=== PATIENT | male | born 1955 | race African-American/Black ===

== ENCOUNTER 2018-02-28 12:07 | Emergency (ER) | payer MEDICAID, SELFPAY ==
[2018-02-28] MEDS ORDERED: ISOVUE-370 76%-LOCM 1 ML ONE (12:16)
[2018-02-28] MEDS ORDERED: EPINEPHrine 1 MG/ML AMP ONE (12:16)
[2018-02-28] MEDS ORDERED: Norepinephrine 8 MG/0.9% NS 250 ML ONE (12:22)
[2018-02-28 12:44] LABS: Base Excess-Venous -2.9 mmol/L (0 (+/- 2.5)); Bicarbonate (HCO3v) 23.8 mmol/L (1.0-85.0); CO2 Tension (PvCO2) 47.9 mmHg (41.0-51.0); Calcium, Ionized 1.64 mmol/L (1.12-1.32); Hemoglobin - Calc 12.5 g/dL (12.0-18.0); O2 Tension (PvO2) 48.7 mmHg (35.0-45.0); Potassium 4.2 mmol/L (3.4-4.7); T. Carbon Dioxide 25.3 mmol/L (1.0-85.0); pH (Venous) 7.304 (7.35-7.45); vO2 Saturation-calc 79.7 % (94-98)
[2018-02-28 12:56] LABS: #Basophils 0.1 thou/uL (0.0-0.2); #Eosinphils 0.1 thou/uL (0.0-0.7); #Lymphocytes 1.2 thou/uL (1.20-3.40); #Monocytes 0.5 thou/uL (0.11-0.59); #Neutrophils 12.9 thou/uL (1.40-6.50); %Basophils 0.3 % (0.0-1.0); %Eosinophils 0.5 % (0.0-10.0); %Monocytes 3.4 % (0.0-10.0); %Neutrophils 87.8 % (42.0-75.0); Hemoglobin 12.7 g/dL (14.0-18.0); Mean Corpuscular Hemoglobin 32.9 pg (27.0-31.0); Mean Corpuscular Volume 99.6 fL (78.0-98.0); Mean Platelet Volume 8.8 fL (7.4-10.4); Platelet Count 282 thou/uL (130-400); RBC Distribution Width 12.1 % (11.5-14.5); Red Blood Cell (RBC) Count 3.87 mill/uL (4.70-6.10); White Blood Cell (WBC) Count 14.6 thou/uL (4.8-10.8)
[2018-02-28 13:01] LABS: Acetaminophen Less than 6.0 mcg/mL (10.0-30.0); Alcohol Less than 10 mg/dL (Less than 10); Salicylate Less than 8.0 mg/dL (15.0-30.0)
[2018-02-28 13:06] LABS: CKMB 1.5 ng/mL (0-6.6); Troponin I 0.011 ng/mL (< 0.028)
--- NOTE | 2018-02-28 13:06 | CT ---
HEAD CT WITHOUT CONTRAST: DATE: 02/28/18. COMPARISON: None. HISTORY: Found unresponsive, diaphoresis, lightheaded. TECHNIQUE: Serial axial CT imaging at 5 mm intervals from the vertex through the skull base without contrast. FINDINGS: There is partial opacification of the anterior ethmoid air cells on the left. No displaced calvarial fracture is noted. There is atherosclerotic calcification of the cavernous carotid arteries. No in tracranial hemorrhage, midline shift, mass effect, or ventricular enlargement. IMPRESSION: No acute findings. POS: [facility]
[2018-02-28 13:13] LABS: ALT (SGPT) 18 U/L (8-55); AST (SGOT) 27 U/L (5-34); Albumin 3.4 g/dL (3.4-4.8); Alkaline Phosphatase 75 U/L (40-150); Anion Gap 16 mmol/L (10-20); BUN (Urea Nitrogen) 30 mg/dL (8.4-25.7); Bilirubin, Total 0.9 mg/dL (0.2-1.2); CK (CPK) 232 U/L (30-200); Calc. Creatinine Clearance 0 mL/min (70-130); Calcium 9.2 mg/dL (7.8-10.44); Carbon Dioxide 21 mmol/L (23-31); Chloride 105 mmol/L (98-107); Estimated GFR-MDRD 35; Globulin 4.1 g/dL (2.4-3.5); Glucose 112 mg/dL (80-115); Lipase 53 U/L (8-78); Potassium 4.7 mmol/L (3.5-5.1); Protein, Total 7.5 g/dL (5.8-8.1); Sodium 137 mmol/L (136-145)
--- NOTE | 2018-02-28 13:38 | CT ---
CT CHEST WITH IV CONTRAST AND 3D POSTPROCESSING CT ABDOMEN WITH IV CONTRAST AND 3D POSTPROCESSING: Date: 02/28/18 HISTORY: Patient was found unresponsive. Exam requested to evaluate for aneurysm or dissection of the aorta. D iabetes, hypertension, and hypercholesterolemia. FINDINGS: There are vascular calcifications and good opacification of the aortic lumen without evidence of aneu rysmal dilatation or intimal flap to suggest dissection. No pleural or pericardial effusions are seen . There are dependent changes in the lung bases. No pneumothoraces or lobar consolidation seen. There is 3.5 x 3.0 x 4.0 cm low density lesion in the lateral aspect of the right lobe of the liver. A tiny low density lesion is seen in the left lobe of the liver. No calcified gallstones are seen. Th e spleen, pancreas, adrenal glands, and kidneys are normal. No free air or free fluid seen in the abd omen. Normal appearing appendix is present. There are degenerative changes in the spine. There is goo d flow in the celiac axis, SMA, COLTON, and renal arteries. There is mild stenosis in the proximal renal arteries. IMPRESSION: 1. No evidence of aortic aneurysm or dissection. 2. Probable liver mass. Further evaluation with ultrasound would be helpful. POS: [facility]
[2018-02-28 14:04] LABS: Amphetamine Not Detected (NotDetected); Barbiturates Screen Not Detected (NotDetected); Benzodiazepine Screen Not Detected (NotDetected); Cocaine Metabolite Screen Detected (NotDetected); Medtox Control Line Valid? VALID (VALID); Medtox Reader # READER 4; Methadone Not Detected (NotDetected); Methamphetamine Not Detected (NotDetected); Opiate Screen Not Detected (NotDetected); Oxycodone Screen Not Detected (NotDetected); Phencyclidine (PCP) Not Detected (NotDetected); THC/Cannabinoid Screen Not Detected (NotDetected); Tricyclic Screen Not Detected (NotDetected)
[2018-02-28] MEDS ORDERED: Dexamethasone 10 MG/ML VIAL ONE (14:28)
[2018-02-28] MEDS ORDERED: EPINEPHrine 1 MG/10 ML Abboject SYRINGE ONE (18:00)
[2018-02-28] MEDS ORDERED: Calcium Chloride 1 GM/10 ML Abboject SYRINGE ONE (18:00)
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
== END 2018-02-28 16:01 | disposition left against medical advice (07) ==
LOC: ERS 12:07
DX: I95.9 Hypotension, unspecified (principal); E11.9 Type 2 diabetes mellitus without complications; E78.00 Pure hypercholesterolemia, unspecified
CPT/HCPCS: 36416; 36556; 51702; 70450; 71275; 80053; 80306; 80307; 82330; 82533; 82550; 82553; 82803; 83605; 83690; 84484; 85025; 93005; 96365; 96366; 96375; J0171; J1100

== ENCOUNTER 2018-04-30 10:16 | Inpatient (IN) | payer OTHER ==
[2018-04-30 11:07] LABS: #Basophils 0.1 thou/uL (0.0-0.2); #Eosinphils 0.2 thou/uL (0.0-0.7); #Monocytes 0.6 thou/uL (0.11-0.59); #Neutrophils 6.9 thou/uL (1.40-6.50); %Eosinophils 2.1 % (0.0-10.0); %Lymphocytes 20.6 % (21.0-51.0); %Monocytes 6.4 % (0.0-10.0); %Neutrophils 69.8 % (42.0-75.0); Hemoglobin 6.1 g/dL (14.0-18.0); Mean Corpuscular HGB CONC 33.7 g/dL (32.0-36.0); Mean Corpuscular Hemoglobin 34.4 pg (27.0-31.0); Mean Platelet Volume 7.6 fL (7.4-10.4); Platelet Count 313 thou/uL (130-400); Red Blood Cell (RBC) Count 1.76 mill/uL (4.70-6.10); White Blood Cell (WBC) Count 9.8 thou/uL (4.8-10.8)
[2018-04-30 11:14] LABS: INR-International Normal Ratio 1.2; Prothrombin Time 15.7 SEC (12.0-14.7)
[2018-04-30 11:24] LABS: PTT 21.9 SEC (22.9-36.1)
--- NOTE | 2018-04-30 11:28 | RAD ---
CHEST 1 VIEW: Date: 04/30/18 HISTORY: Chest pain. Shortness of breath. COMPARISON: 04/24/18. FINDINGS: Atherosclerosis of aorta. Normal cardiac silhouette. Pulmonary vessels and hilum are normal. Costophr enic angles are clear. No mass. No consolidation. No pneumothorax or osseous abnormalities. IMPRESSION: Atherosclerosis. No acute cardiopulmonary process. POS: [facility]
[2018-04-30 11:29] LABS: ALT (SGPT) 12 U/L (8-55); AST (SGOT) 24 U/L (5-34); Albumin 3.2 g/dL (3.4-4.8); Alkaline Phosphatase 60 U/L (40-150); Anion Gap 13 mmol/L (10-20); BUN (Urea Nitrogen) 25 mg/dL (8.4-25.7); Bilirubin, Total 0.2 mg/dL (0.2-1.2); CK (CPK) 79 U/L (30-200); Calc. Creatinine Clearance 0 mL/min (70-130); Carbon Dioxide 23 mmol/L (23-31); Chloride 104 mmol/L (98-107); Estimated GFR-MDRD 58; Globulin 3.3 g/dL (2.4-3.5); Glucose 382 mg/dL (80-115); Potassium 4.7 mmol/L (3.5-5.1); Protein, Total 6.5 g/dL (5.8-8.1); Sodium 135 mmol/L (136-145)
[2018-04-30 11:33] LABS: CKMB 1.8 ng/mL (0-6.6); Troponin I Less than 0.010 ng/mL (< 0.028)
[2018-04-30] MEDS ORDERED: Pantoprazole 40 MG VIAL IVP SCH ×3 (12:15→21:45)
[2018-04-30] MEDS ORDERED: Pantoprazole 40 MG VIAL ONE (12:50)
[2018-04-30] MEDS ORDERED: Acetaminophen 325 MG TAB PO PRN (14:46)
[2018-04-30 14:47] VITALS: BMI 30.8
[2018-04-30] MEDS ORDERED: Dextrose 5% in Water 1,000 ML IV PRN (14:47)
[2018-04-30] MEDS ORDERED: Dextrose 50% Abboject 50 ML SYRINGE SLOW IVP PRN (14:47)
--- NOTE | 2018-04-30 16:56 | ULT ---
BILATERAL LOWER EXTREMITY VENOUS DOPPLER ULTRASOUND: 04/30/18 HISTORY: Bilateral lower extremity pain and edema. TECHNIQUE: Joy scale, with color flow and spectral doppler imaging of the deep venous system of the lower extre mity is performed bilaterally. FINDINGS: There is good flow, compression, and augmentation noted in the common femoral, femoral, deep femoral, popliteal, posterior tibial and greater saphenous veins. IMPRESSION: No evidence of DVT in either lower extremity. POS: [facility]
[2018-04-30 17:04] LABS: Hemoglobin 7.6 g/dL (14.0-18.0)
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
[2018-04-30 21:15] LABS: Hemoglobin 7.4 g/dL (14.0-18.0)
[2018-04-30] MEDS: Sodium Chloride 0.9% 1,000 ML IV SCH (21:55)
[2018-05-01] MEDS ORDERED: Gabapentin 300 MG CAP PO SCH (00:15)
[2018-05-01 05:55] LABS: Hemoglobin 6.7 g/dL (14.0-18.0)
[2018-05-01 06:13] LABS: Anion Gap 10 mmol/L (10-20); BUN (Urea Nitrogen) 24 mg/dL (8.4-25.7); Calc. Creatinine Clearance 89 mL/min (70-130); Calcium 8.6 mg/dL (7.8-10.44); Carbon Dioxide 24 mmol/L (23-31); Chloride 107 mmol/L (98-107); Estimated GFR-MDRD 73; Glucose 289 mg/dL (80-115); Potassium 4.4 mmol/L (3.5-5.1); Sodium 137 mmol/L (136-145)
[2018-05-01] MEDS: Gabapentin 300 MG CAP PO SCH ×3 (08:45→20:42)
[2018-05-01] MEDS: Pantoprazole 40 MG VIAL IVP SCH ×2 (08:46→20:42)
[2018-05-01 09:02] LABS: Hemoglobin 6.9 g/dL (14.0-18.0)
[2018-05-01] MEDS: Insulin Glargine 5 UNITS in Pre-Filled Syringe 1 EACH SC SCH (10:31)
--- NOTE | 2018-05-01 13:03 | PDOC.PN ---
- Subjective Encounter Start Date: 05/01/18 Encounter Start Time: 10:30 Subjective: pt up in bed no complains - Objective Resuscitation Status: Resuscitation Status FULL:Full Resuscitation Vital Signs & Weight: Vital Signs (12 hours) Temp Pulse Pulse Resp BP BP Pulse Ox 05/01/18 11:16 98.8 F 86 16 122/60 96 05/01/18 10:47 99.3 F 88 16 120/59 L 96 05/01/18 07:44 99 F 92 16 126/65 96 05/01/18 04:00 98.2 F 106 H 20 141/67 H 96 Weight Admit Weight 221 lb Weight 221 lb I&O: 04/30/18 05/01/18 05/02/18 06:59 06:59 06:59 Intake Total 0 Output Total 375 Balance -375 0 Result Diagrams: 05/01/18 08:37 05/01/18 05:37 Additional Labs: Accuchecks 05/01/18 05/01/18 04/30/18 10:57 05:44 20:28 POC Glucose 269 H 287 H 256 H Phys Exam - Physical Examination Neck: no nodes, no JVD, supple, full ROM Respiratory: no wheezing, no rales, no rhonchi, wheezing present, clear to auscultation bilateral Cardiovascular: RRR, no significant murmur, no rub, gallop, irregular Gastrointestinal: soft, non-tender, no distention, positive bowel sounds Dx/Plan (1) Acute blood loss anemia Code(s): D62 - ACUTE POSTHEMORRHAGIC ANEMIA Status: Acute Comment: H/H stable and better.S/P EGD w APC of bleeding lesions. monitor. (2) Pulmonary embolus Code(s): I26.99 - OTHER PULMONARY EMBOLISM WITHOUT ACUTE COR PULMONALE Status : Acute (3) GI bleed Code(s): K92.2 - GASTROINTESTINAL HEMORRHAGE, UNSPECIFIED Status: Suspected Comment: S/P EGD with cauterization - Plan pt's hh is low will give him one more unit of blood -: He is npo for possible EGD, gi to see pt -: pt high risk due to acute PE and acute gi bleed * . Review of Systems - Review of Systems Respiratory: negative: Cough, Dry, Shortness of Breath, Hemoptysis, SOB with Excertion, Pleuritic Pain, Sputum, Wheezing Cardiovascular: negative: chest pain, palpitations, orthopnea, paroxysmal nocturnal dyspnea, edema, light headedness, other Gastrointestinal: negative: Nausea, Vomiting, Abdominal Pain, Diarrhea, Constipation, Melena, Hematochezia, Other Genitourinary: negative: Dysuria, Frequency, Incontinence, Hematuria, Retention , Other - Medications/Allergies Allergies/Adverse Reactions: Allergies Allergy/AdvReac Type Severity Reaction Status Date / Time No Known Allergies Allergy Verified 04/30/18 14:47 Medications: Current Medications Acetaminophen (Tylenol) 650 mg PO Q4H PRN PRN Reason: Headache/Fever or Pain Dextrose/Water (Dextrose 50%) 25 gm SLOW IVP PRN PRN PRN Reason: Hypoglycemia Gabapentin (Neurontin) 300 mg PO TID [facility] Last Admin: 05/01/18 08:45 Dose: Not Given Glucagon (Glucagon) 1 mg IM PRN PRN PRN Reason: Hypoglycemia Dextrose/Water (D5w) 1,000 mls @ 0 mls/hr IV .Q0M PRN PRN Reason: Hypoglycemia Sodium Chloride (Normal Saline 0.9%) 1,000 mls @ 50 mls/hr IV .Q20H [facility] Last Admin: 04/30/18 21:55 Dose: 1,000 mls Insulin Glargine 5 units/ (Miscellaneous Medication) 0.05 mls @ 0 mls/hr SC QAM [facility] Last Admin: 05/01/18 10:31 Dose: 0.05 mls Insulin Human Lispro (Humalog) 0 units SC .MILD SLIDING SCALE PRN PRN Reason: Mild Correctional Scale Pantoprazole Sodium (Protonix) 40 mg IVP Q12HR [facility] Last Admin: 05/01/18 08:46 Dose: 40 mg Sodium Chloride (Flush - Normal Saline) 10 ml IVF Q12HR [facility] Last Admin: 05/01/18 08:46 Dose: 10 ml Sodium Chloride (Flush - Normal Saline) 10 ml IVF PRN PRN PRN Reason: Saline Flush
[2018-05-01 15:20] LABS: Hemoglobin 8.2 g/dL (14.0-18.0)
[2018-05-01] MEDS: Sodium Chloride 0.9% 1,000 ML IV SCH (16:50)
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
--- NOTE | 2018-05-01 17:46 | PRG ---
DATE OF SERVICE: 05/01/2018 REASON FOR CONSULTATION: Anemia, melena. SUBJECTIVE: The patient states that he does still have some mild shortness of breath at rest while l bernice in bed today, but denies any further episodes of melenic type stools during this admission. Cur rently, denies any nausea, vomiting, fevers, chills, hematemesis, hematochezia, or abdominal pain. OBJECTIVE: VITAL SIGNS: Temperature 98.8, pulse 86, blood pressure 130/64, respiratory rate 16, satting 98% on room air. GENERAL: The patient is lying in bed, in no acute distress. Alert and oriented x4. CARDIOVASCULAR: Regular rate and rhythm. PULMONARY: Clear to auscultation bilaterally. ABDOMEN: Normoactive bowel sounds, soft, nontender, nondistended. EXTREMITIES: No cyanosis, clubbing or edema. LABORATORY DATA: CBC with a hemoglobin of 6.7, hematocrit 19.9. Chemistry with a sodium of 137, pot assium 4.4, chloride 107, CO2 24, BUN 24, creatinine 1.21, glucose 289. IMAGING DATA: EGD performed on 04/25/2018 showed a 3-4 mm clean based linear ulceration seen in the proximal fundus without any high risk stigmata or active/recent bleeding. This was not intervened up on given the low likelihood of repeat bleeding. However, there were three additional areas of active oozing of blood from the gastric mucosa in the distal body, antrum and along the incisura. These 3 areas were intervened upon with argon plasma coagulation with good hemostasis achieved and no bleedin g noted at the completion of the procedure. ASSESSMENT AND PLAN: The patient is a 62-year-old male with past medical history of hypertension, diabetes, peripheral neuropathy, hypothyroidism, hyperlipidemia, and hepatic lesion pr esenting with anemia with a recent discharge for upper GI bleeding. Upper GI bleeding. The patient initially presented during the last hospitalization with progressive worsening of dizziness, weakness and dyspnea on exertion along with a decreased H&H and melenic type stools that were noted on admission. He subsequently underwent EGD on 04/25/2018, which showed a 3-4 mm linear ulceration within the proximal fundus without any high risk stigmata of bleeding, but did have 3 other areas of active oozing of blood from seemingly normal appearing mucosa. These three are as of active bleeding were intervened upon with argon plasma coagulation with good hemostasis achieve d. In the post-procedure period, he had stabilization of his H&H and did not have any further episod es of melena or melenic type stools. He was ultimately discharged to home with instructions to resta rt his Xarelto approximately 48 hours after discharge; however, while at home, he began to exhibit da rker color, almost black colored stools. There were semi-solid in consistency and ultimately the pat iefelicitas experienced increased dyspnea on exertion as well as chest pain that prompted his readmission in to the hospital. Upon readmission to the ER, his routine labs noted a significant drop from his H&H from discharge concerning for an active GI bleeding process. At this time given his decreased H&H an d melenic type stools as an outpatient, it is strongly concerning for continued GI bleeding despite n ot restarting Xarelto as an outpatient. RECOMMENDATIONS: 1. We would continue to trend H&H and transfuse as necessary to maintain an H&H of 7/21. 2. We would continue monitor clinically for signs of active gastrointestinal bleeding. 3. We would continue to hold anticoagulation in light of recent and probable active gastrointestinal bleeding. 4. The patient could be placed on a clear liquid diet tonight with plans for n.p.o. at midnight and repeat EGD tomorrow morning. 5. Further recommendations to follow endoscopic management. Hepatic lesion: Upon review of the patient's chart, there was some mention of a history of chronic h epatitis C as well as a CT dissection protocol that was performed in 02/2018. During that particular CT scan, there was noted a 3.5 x 3 x 4 cm low density lesion in the lateral aspect of the right lobe of the liver. A tiny low density lesion was also seen within the left lobe of the liver; however, prem haley did not comment on any cirrhotic morphology at that time and his current platelet count as well a s prior EGD not showing esophageal varices does not concur with the diagnosis of cirrhosis at this ti me either. However, given the size of this particular lesion, it is concerning for a possible malign ant process and will need further workup. RECOMMENDATIONS: We would perform a CT 3 phase examination for further characterization of these hep atic lesions and possibility of HCC. We will continue to follow. Please call with any questions.
[2018-05-01] MEDS: HumaLOG 300 UNITS/3 ML VIAL SC PRN (18:25)
[2018-05-01 20:45] LABS: Hemoglobin 8.1 g/dL (14.0-18.0)
--- NOTE | 2018-05-02 00:18 | CON ---
DATE OF CONSULTATION: 05/01/2018 REASON FOR CONSULTATION: Opinion regarding anticoagulation in a patient with a remote history of pul monary embolism and recurrent gastrointestinal bleed. HISTORY OF PRESENT ILLNESS: This is a 62-year-old male who presented to the hospital yesterday with shortness of breath. He was diagnosed with pulmonary embolism back in early 03/2018 and was discharg ed on the Xarelto. He came back into the hospital on 04/24/2018 and was found to have a Dieulafoy's lesion in his stomach with profound anemia. It was cauterized. He was discharged to home on the and was supposed to restart his Xarelto yesterday. However, he came back to the hospital last night with chest tightness and was found to be anemic with a hemoglobin of 6.1. He currently is not exper iencing shortness of breath. His anticoagulation is being held. PAST MEDICAL HISTORY: 1. Diabetes mellitus type 2, now insulin requiring. 2. Hypertension. 3. Hypothyroidism. 4. Chronic hepatitis C. 5. Recent pulmonary embolism. 6. Colon cancer. PAST SURGICAL HISTORY: Exploratory laparotomy. ALLERGIES: None. REVIEW OF SYSTEMS: Twelve-point review of systems negative. MEDICATIONS PRIOR TO ADMISSION: Lipitor, gabapentin, Synthroid, Xarelto, lisinopril. SOCIAL HISTORY: Smokes 1 pack per day, occasionally drinks alcohol, does not use any illicit drugs. PHYSICAL EXAMINATION: VITAL SIGNS: Temperature 99.2, pulse 95, respirations 18, O2 saturation 98%, blood pressure 145/68. HEENT: Pupils react. Sclerae icteric. Oropharynx clear. NECK: Without adenopathy or JVD. LUNGS: Clear without wheezing or rhonchi. CARDIAC: S1, S2 regular, without murmur. ABDOMEN: Soft, nontender. EXTREMITIES: No clubbing, cyanosis, or edema. Venogram showed no evidence of clot. I reviewed CT scan from back in March, this demonstrated possible single pulmonary embolism branch o f the right upper lobe pulmonary artery involving anterior and posterior segments. He also had 5-mm right middle lobe nodule. ASSESSMENT: 1. Gastrointestinal bleed. 2. Recent pulmonary embolism. RECOMMENDATIONS: 1. It is not safe to anticoagulate the patient while he is having a problem with gastrointestinal bl eeding. I would withhold the anticoagulation until his GI issues have resolved. I would not put an IVC filter in. 2. He needs to follow up either with myself or primary care provider in about 6 months to reimage th e 5-mm pulmonary nodule found on previous CT imaging. Thank you for the referral.
[2018-05-02] MEDS ORDERED: Lidocaine 1% PF 5 ML VIAL ONE (09:46)
[2018-05-02] MEDS ORDERED: PROPOFOL 200 MG/20 ML VIAL ONE (09:46)
[2018-05-02] MEDS: Insulin Glargine 5 UNITS in Pre-Filled Syringe 1 EACH SC SCH (11:32)
[2018-05-02] MEDS: Pantoprazole 40 MG VIAL IVP SCH ×2 (11:32→21:17)
[2018-05-02] MEDS: Gabapentin 300 MG CAP PO SCH ×3 (11:33→21:18)
[2018-05-02] MEDS: HumaLOG 300 UNITS/3 ML VIAL SC PRN ×3 (11:34→21:18)
--- NOTE | 2018-05-02 12:35 | OP ---
DATE OF PROCEDURE: 05/02/2018 SURGEON: Alex Shannon M.D. ALUMINUM BOAT INSPECTOR SURGEON: None. PROCEDURE: Esophagogastroduodenoscopy, diagnostic. INDICATION: 1. Acute blood loss anemia. 2. Melena. 3. History of gastric ulcers and Dieulafoy lesions, treated endoscopically 1 week ago. MEDICATIONS: See anesthesia record. FINDINGS: After discussion of the risks, benefits and alternatives of the procedure, informed consen t was obtained and witnessed. Pre-endoscopic cardiopulmonary examination was satisfactory. Timeout was performed before sedation was achieved. Sedation was achieved with anesthesia assistance in the endoscopy unit. A Pentax adult upper endoscope was placed into the oropharynx and passed through the cricopharyngeus under direct visualization. The esophageal mucosa appeared normal throughout with a normal-appearing Z-line. There were no esophageal varices. The endoscope was advanced into the sto mach. Forward and retroflexed views of the entire gastric mucosa were obtained. There was no eviden ce of any old blood or active bleeding in the stomach. There were no gastric varices along the great er curvature of the stomach. There is a semi-linear ulceration with a clean base. There were no hig h risk stigmata for bleeding. In the gastric antrum near the pylorus, there is a larger ulcer with a clean base, also nonbleeding. There was no adherent clot or visible vessel. There were no high ris k stigmata for rebleeding. The remainder of the gastric mucosa appeared normal. I advanced the endo scope through the pylorus and into the duodenum. I was able to advance to the 6th portion of the duo denum with the upper endoscope, to 100 cm examined. The entire duodenal mucosa examined appeared nor mal. The upper endoscope was then completely withdrawn and the patient allowed to recover. The dominic ent tolerated the procedure well. There were no immediate post-procedure complications. IMPRESSION: 1. Two clean based gastric ulcers, in the gastric antrum and along the greater curvature. No high r isk stigmata for rebleeding. 2. No old blood or active bleeding on this exam. 3. Otherwise, normal esophagogastroduodenoscopy. 4. The larger antral ulcer represents the site of recent APC treatment of his Dieulafoy lesion. Thi s is the likely site of his more recent bleeding, but with his clean based appearance, no endoscopic therapy was applied. RECOMMENDATIONS: 1. IV proton pump inhibitor every 12 hours while inpatient, switched to Protonix 40 mg p.o. twice da fish on discharge. 2. No nonsteroidal anti-inflammatory drugs or any anticoagulation, if possible. 3. We will advance his diet. 4. Continue to follow H&H tomorrow.
--- NOTE | 2018-05-02 13:56 | PQF ---
CLINICAL DOCUMENTATION IMPROVEMENT CLARIFICATION FORM: ICD-10 Updated PLEASE DO AN ADDENDUM TO THE PROGRESS NOTE WITH ANY DOCUMENTATION UPDATES OR ADDITIONS AND CARRY THROUGH TO DC SUMMARY. THANK YOU. DATE: 05/02/18 ATTN: DR. LOAIZA Please exercise your independent, professional judgment in responding to the clarification form. Clinical indicators are provided on the bottom of this form for your review Please check appropriate box(s): [ x] Pulmonary Embolism: [ x] ACUTE [ ] CHRONIC [ ] HISTORY OF [ ] Other diagnosis [ ] Unable to determine In addition, please specify: Present on Admission (POA): [ x ] Yes [ ] No [ ] Unable to determine For continuity of documentation, please document condition throughout progress notes and discharge summary. Thank You. 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 All Rights Reserved AMNA [email or web address] Office: [phone] ADILENE
[2018-05-02] MEDS: Sodium Chloride 0.9% 1,000 ML IV SCH (14:04)
--- NOTE | 2018-05-02 14:13 | PDOC.PN ---
- Subjective Encounter Start Date: 05/02/18 Encounter Start Time: 13:00 Subjective: pt up in bed feels better - Objective Resuscitation Status: Resuscitation Status FULL:Full Resuscitation Vital Signs & Weight: Vital Signs (12 hours) Temp Pulse Resp BP Pulse Ox 05/02/18 11:17 97.9 F 82 16 122/68 99 05/02/18 07:38 98.3 F 89 18 119/57 L 98 05/02/18 04:11 98.4 F 97 14 132/74 97 Weight Admit Weight 221 lb Weight 225 lb I&O: 05/01/18 05/02/18 05/03/18 06:59 06:59 06:59 Intake Total 2550 Output Total 375 2050 Balance -375 500 Result Diagrams: 05/01/18 20:39 05/01/18 05:37 Additional Labs: Accuchecks 05/02/18 05/02/18 05/01/18 11:25 06:16 20:28 POC Glucose 309 H 319 H 295 H 05/01/18 16:53 POC Glucose 264 H Phys Exam - Physical Examination Neck: no nodes, no JVD, supple, full ROM Respiratory: no wheezing, no rales, no rhonchi, wheezing present, clear to auscultation bilateral Cardiovascular: RRR, no significant murmur, no rub, gallop, irregular Gastrointestinal: soft, positive bowel sounds mild epigastric tenderness Dx/Plan (1) Acute blood loss anemia Code(s): D62 - ACUTE POSTHEMORRHAGIC ANEMIA Status: Acute Comment: H/H stable and better.S/P EGD w APC of bleeding lesions. monitor. (2) Pulmonary embolus Code(s): I26.99 - OTHER PULMONARY EMBOLISM WITHOUT ACUTE COR PULMONALE Status : Acute (3) GI bleed Code(s): K92.2 - GASTROINTESTINAL HEMORRHAGE, UNSPECIFIED Status: Suspected Comment: S/P EGD with cauterization (4) Dieulafoy lesion of stomach Code(s): K31.82 - DIEULAFOY LESION (HEMORRHAGIC) OF STOMACH AND DUODENUM Status: Acute (5) Gastric ulcer Code(s): K25.9 - GASTRIC ULCER, UNSP ACUTE OR CHRONIC, W/O HEMOR OR PERF Status: Acute - Plan pt underwent egd indicates 2 gastric lesions -: No AC for now. pt will follow up with pulmonary outpatient -: will continue to trend hh. -: lower ext dopplers normal * . Review of Systems - Review of Systems Respiratory: negative: Cough, Dry, Shortness of Breath, Hemoptysis, SOB with Excertion, Pleuritic Pain, Sputum, Wheezing Cardiovascular: negative: chest pain, palpitations, orthopnea, paroxysmal nocturnal dyspnea, edema, light headedness, other Gastrointestinal: negative: Nausea, Vomiting, Abdominal Pain, Diarrhea, Constipation, Melena, Hematochezia, Other Genitourinary: negative: Dysuria, Frequency, Incontinence, Hematuria, Retention , Other - Medications/Allergies Allergies/Adverse Reactions: Allergies Allergy/AdvReac Type Severity Reaction Status Date / Time No Known Allergies Allergy Verified 04/30/18 14:47 Medications: Current Medications Acetaminophen (Tylenol) 650 mg PO Q4H PRN PRN Reason: Headache/Fever or Pain Dextrose/Water (Dextrose 50%) 25 gm SLOW IVP PRN PRN PRN Reason: Hypoglycemia Gabapentin (Neurontin) 300 mg PO TID [facility] Last Admin: 05/02/18 11:33 Dose: 300 mg Glucagon (Glucagon) 1 mg IM PRN PRN PRN Reason: Hypoglycemia Dextrose/Water (D5w) 1,000 mls @ 0 mls/hr IV .Q0M PRN PRN Reason: Hypoglycemia Sodium Chloride (Normal Saline 0.9%) 1,000 mls @ 50 mls/hr IV .Q20H [facility] Last Admin: 05/02/18 14:04 Dose: 1,000 mls Insulin Glargine 5 units/ (Miscellaneous Medication) 0.05 mls @ 0 mls/hr SC QAM [facility] Last Admin: 05/02/18 11:32 Dose: 0.05 mls Insulin Human Lispro (Humalog) 0 units SC .MILD SLIDING SCALE PRN PRN Reason: Mild Correctional Scale Last Admin: 05/02/18 11:34 Dose: 5 unit Pantoprazole Sodium (Protonix) 40 mg IVP Q12HR [facility] Last Admin: 05/02/18 11:32 Dose: 40 mg Sodium Chloride (Flush - Normal Saline) 10 ml IVF Q12HR [facility] Last Admin: 05/02/18 11:33 Dose: 10 ml Sodium Chloride (Flush - Normal Saline) 10 ml IVF PRN PRN PRN Reason: Saline Flush
[2018-05-03] MEDS: HumaLOG 300 UNITS/3 ML VIAL SC PRN ×3 (06:29→17:04)
[2018-05-03] MEDS: Pantoprazole 40 MG VIAL IVP SCH (08:16)
[2018-05-03] MEDS: Gabapentin 300 MG CAP PO SCH ×3 (08:16→20:59)
[2018-05-03] MEDS: Insulin Glargine 5 UNITS in Pre-Filled Syringe 1 EACH SC SCH (08:36)
[2018-05-03] MEDS: Sodium Chloride 0.9% 1,000 ML IV SCH (10:00)
--- NOTE | 2018-05-03 12:09 | PRG ---
DATE OF SERVICE: 05/03/2018 GI INPATIENT DAILY PROGRESS NOTE SUBJECTIVE: Mr. Marquis is feeling pretty well. He describes some shortness of breath on exertion. He is not having any chest pain or any abdominal pain. He has not had any further melena since his endoscopy yesterday, in fact no bowel movements since then. He ate dinner last night and breakfast t his morning with no problems. He has remained hemodynamically stable. I do not see any H&H from thi s morning. OBJECTIVE: VITAL SIGNS: Temperature 98.1, pulse 98, blood pressure 124/59, 97% oxygen saturation on room air. GENERAL: No acute distress. HEART: Regular rate and rhythm. LUNGS: Clear to auscultation bilaterally. ABDOMEN: Soft, nontender to palpation. EXTREMITIES: No peripheral edema. LABORATORY STUDIES: Last hemoglobin was from 05/01/2018 in the evening it was 8.1, glucose this morn ing is 346. ASSESSMENT AND PLAN: 1. Gastric ulcers, demonstrated on EGD yesterday, both with clean base. 2. Acute blood loss anemia. 3. Melena, resolved. The patient had no further evidence of overt bleeding since his upper endoscopy yesterday. I would l alison to see an H and H today, so I have gone ahead and ordered this. The patient needs to continue on twice daily oral proton pump inhibitor and should also get started on iron supplementation as well. I would give 324 mg twice daily. If the patient's H&H has shown to be stable today, then I think it would be reasonable to discharge from the hospital for close followup in the GI clinic with Dr. Sheila joyce
[2018-05-03 13:17] LABS: Hemoglobin 7.2 g/dL (14.0-18.0)
--- NOTE | 2018-05-03 13:36 | PDOC.PN ---
- Subjective Encounter Start Date: 05/03/18 Encounter Start Time: 13:32 Pt seen for followup re: GI bleed. Denies chest pain, shortness of breath, fevers or chills. - Objective Resuscitation Status: Resuscitation Status FULL:Full Resuscitation MAR Reviewed: Yes Vital Signs & Weight: Vital Signs (12 hours) Temp Pulse Resp BP Pulse Ox 05/03/18 12:00 98.6 F 96 18 125/62 96 05/03/18 08:13 98.1 F 98 17 124/59 L 97 05/03/18 04:00 99.0 F 97 18 131/65 97 Weight Admit Weight 221 lb Weight 221 lb 1.6 oz I&O: 05/02/18 05/03/18 05/04/18 06:59 06:59 06:59 Intake Total 2550 2698 Output Total 2050 1225 Balance 500 1473 Result Diagrams: 05/03/18 12:53 05/01/18 05:37 Additional Labs: Accuchecks 05/03/18 05/03/18 05/02/18 10:59 05:35 20:46 POC Glucose 338 H 346 H 379 H 05/02/18 16:55 POC Glucose 392 H EKG Reviewed by me: Yes (Tele: NSR) Phys Exam - Physical Examination Obese HEENT: moist MMs, sclera anicteric, oral pharynx no lesions, 2+ tonsils Neck: no nodes, no JVD, supple, full ROM Respiratory: no wheezing, no rales, no rhonchi, clear to auscultation bilateral Cardiovascular: RRR, no rub S1, S2 Gastrointestinal: soft, non-tender, no distention, positive bowel sounds Neurological: moves all 4 limbs Psychiatric: normal affect, A&O x 3 Dx/Plan (1) Acute blood loss anemia Code(s): D62 - ACUTE POSTHEMORRHAGIC ANEMIA Status: Acute Comment: H/H stable and better.S/P EGD which showed gastric ulcer. Hb dropped, give 1 unit pRBC and recheck (2) Gastric ulcer Code(s): K25.9 - GASTRIC ULCER, UNSP ACUTE OR CHRONIC, W/O HEMOR OR PERF Status: Acute Comment: continue PPI BID (3) Pulmonary embolus Code(s): I26.99 - OTHER PULMONARY EMBOLISM WITHOUT ACUTE COR PULMONALE Status : Acute Comment: off of anticoagulation due to GI bleed (4) GI bleed Code(s): K92.2 - GASTROINTESTINAL HEMORRHAGE, UNSPECIFIED Status: Acute Comment: S/P EGD which showed gastric ulcer - Plan * . Review of Systems - Review of Systems Constitutional: negative: fever, chills, sweats, weakness, malaise Respiratory: negative: Cough, Shortness of Breath, SOB with Excertion, Pleuritic Pain, Wheezing Cardiovascular: negative: chest pain, palpitations, orthopnea, paroxysmal nocturnal dyspnea, edema, light headedness Gastrointestinal: negative: Nausea, Vomiting, Abdominal Pain, Diarrhea, Constipation, Melena, Hematochezia Genitourinary: negative: Dysuria, Frequency, Incontinence, Hematuria, Retention Skin: negative: Rash, Lesions, Dawood, Bruising - Medications/Allergies Allergies/Adverse Reactions: Allergies Allergy/AdvReac Type Severity Reaction Status Date / Time No Known Allergies Allergy Verified 04/30/18 14:47 Medications: Current Medications Acetaminophen (Tylenol) 650 mg PO Q4H PRN PRN Reason: Headache/Fever or Pain Dextrose/Water (Dextrose 50%) 25 gm SLOW IVP PRN PRN PRN Reason: Hypoglycemia Ferrous Sulfate (Feosol) 325 mg PO BID-[facility] Gabapentin (Neurontin) 300 mg PO TID [facility] Last Admin: 05/03/18 08:16 Dose: 300 mg Glucagon (Glucagon) 1 mg IM PRN PRN PRN Reason: Hypoglycemia Dextrose/Water (D5w) 1,000 mls @ 0 mls/hr IV .Q0M PRN PRN Reason: Hypoglycemia Sodium Chloride (Normal Saline 0.9%) 1,000 mls @ 50 mls/hr IV .Q20H [facility] Last Admin: 05/03/18 10:00 Dose: 1,000 mls Insulin Glargine 5 units/ (Miscellaneous Medication) 0.05 mls @ 0 mls/hr SC QAM [facility] Last Admin: 05/03/18 08:36 Dose: 0.05 mls Insulin Human Lispro (Humalog) 0 units SC .MILD SLIDING SCALE PRN PRN Reason: Mild Correctional Scale Last Admin: 05/03/18 12:03 Dose: 5 unit Pantoprazole Sodium (Protonix) 40 mg IVP Q12HR [facility] Last Admin: 05/03/18 08:16 Dose: 40 mg Polyethylene Glycol/Electrolytes (Golytely) 4,000 ml PO ONE [facility] Sodium Chloride (Flush - Normal Saline) 10 ml IVF Q12HR [facility] Last Admin: 05/03/18 08:33 Dose: Not Given Sodium Chloride (Flush - Normal Saline) 10 ml IVF PRN PRN PRN Reason: Saline Flush
[2018-05-03] MEDS ORDERED: GoLYTELY 4,000 ml Bottle PO SCH (17:00)
[2018-05-03] MEDS: metFORMIN XR 500 MG TAB PO SCH (17:04)
--- NOTE | 2018-05-03 17:51 | ADD-PRG ---
DATE OF SERVICE: 05/03/2018 GI INPATIENT DAILY PROGRESS NOTE ADDENDUM I followed up with Mr. Marquis after results came back on his H&H from today. His hemoglobin dropped again from 8.1-7.2. He just had a bowel movement which is a lot more solid but still dark in color. He has been hemodynamically stable and otherwise asymptomatic. I do not think that he is having re current bleeding right now from his gastric ulcers. At this point, I need to think about other poten tial sources. He has not had a colonoscopy. I think it would be safest to go ahead and administer b owel preparation this evening and plan for diagnostic colonoscopy tomorrow morning. The patient is i n agreement. Continue to trend H&H tomorrow, transfuse as needed.
[2018-05-03 18:50] LABS: Hemoglobin 7.5 g/dL (14.0-18.0)
[2018-05-03 20:58] LABS: Hemoglobin 7.3 g/dL (14.0-18.0)
[2018-05-03] MEDS: Atorvastatin Calcium 40 MG TAB PO SCH (20:58)
[2018-05-03] MEDS: NPH, Human Insulin Isophane 300 UNIT/3 ML VIAL SC SCH (20:59)
[2018-05-04] MEDS: Levothyroxine Sodium 25 MCG TAB PO SCH (06:26)
[2018-05-04] MEDS: Dextrose 5 % And 0.9 % NaCl 1,000 ML IV SCH ×2 (06:27→19:39)
[2018-05-04] MEDS: Sodium Chloride 0.9% 1,000 ML IV SCH (07:31)
[2018-05-04] MEDS ORDERED: risperiDONE 0.25 MG TAB PO PRN (09:00)
[2018-05-04] MEDS ORDERED: Promethazine HCl 25 MG/ML VIAL IM PRN (09:50)
[2018-05-04] MEDS ORDERED: Ondansetron HCl/PF 4 MG/2 ML Vial IVP PRN (09:50)
[2018-05-04] MEDS ORDERED: Promethazine HCl 25 MG/ML VIAL SLOW IVP PRN (09:50)
--- NOTE | 2018-05-04 10:28 | OP ---
DATE OF PROCEDURE: 05/04/2018 SURGEON: Alex Shannon M.D. ACCOUNT CLERK SURGEON: None. PROCEDURES: 1. Colonoscopy, diagnostic. 2. Esophagogastroduodenoscopy, diagnostic. INDICATION: This is a 62-year-old man with persistently dropping hemoglobin over the past few days d espite RBC transfusion. He has known gastric ulcers with last EGD 2 days ago showing ulcers with daniel an base. MEDICATIONS: See anesthesia record. FINDINGS: After discussion of the risks, benefits and alternatives of the procedure, informed consen t was obtained and witnessed. Pre-endoscopic cardiopulmonary examination was satisfactory. Timeout was performed before sedation was achieved. Sedation was achieved with anesthesia assistance in the endoscopy unit. Digital rectal exam was performed, which was notable only for some small external he morrhoids. A Pentax adult colonoscope was inserted into the anus and passed forward to the cecum in the usual fashion. The cecal base was identified by the appearance of the ileocecal valve; however, the cecal base was obscured by a significant amount of solid stool and so I was unable to visualize t he appendiceal orifice were completely clear the cecal base. However, I do note that the cecum was r eached. The quality of the bowel prep was poor in the right colon and fair in the rest of the colon, with a significant amount of solid and semi-solid stool in the right colon. The stool is dark, but not melenic and there is certainly no red blood in the stool. The evaluation of the colonic mucosa w as normal throughout. I was not able to intubate the terminal ileum. Retroflexion in the rectum warren wed some internal hemorrhoids. The colonoscope was completely withdrawn. Because of the essentially negative colonic exam, it was decided to proceed with another upper endoscopy to reevaluate his know n gastric ulcers. A Pentax adult upper endoscope was placed into the oropharynx and passed through the cricopharyngeus under direct visualization. The esophageal mucosa is normal. There were no esophageal varices. The Z-line is regular, the endoscope was advanced into the stomach. Forward and retroflexed views of th e entire gastric mucosa were obtained. There was no old blood or active bleeding in the stomach. Th e patient has four clean-based ulcerations in the stomach. Two of these were easily visualized on wi s recent exam, and another 2 on the lesser curvature were not recognized on his recent exam, but do c orrelate with areas of APC treatment performed by Dr. Rafi Shay prior to that. All four of these ulcers are clean based. There are no stigmata of high risk for rebleeding. No interventions were pe rformed upon these ulcerations. There is really no surrounding erythema or friability. The endoscop e was advanced through the pylorus and into the first and second portions of the duodenum, which appe ared normal. The upper endoscope was then completely withdrawn and the patient allowed to recover. The patient tolerated the procedure well. There were no immediate post-procedure complications. IMPRESSION: 1. No old blood or active bleeding on EGD or colonoscopy. 2. Poor bowel preparation in the right colon with significant amount of dark, but not melenic semi-s olid stool in the right colon, unable to completely clear the cecum. 3. Internal and external hemorrhoids, nonbleeding. 4. Otherwise, normal colonoscopy. 5. Four clean based gastric ulcers with no high risk stigmata for rebleeding. One ulceration is in the prepyloric area, another on the greater curvature, and 2 on the lesser curvature. All ulceration s are 1 cm or less in diameter. 6. Otherwise, normal esophagogastroduodenoscopy. RECOMMENDATIONS: 1. Regular diet. 2. Twice daily proton pump inhibitor. This needs to be continued upon hospital discharge for at [facility] the next 2 months. 3. Iron supplementation. 4. Close follow up with Dr. Shay as an outpatient. 5. I would continue to avoid any anticoagulation if possible for now.
[2018-05-04] MEDS: Gabapentin 300 MG CAP PO SCH ×3 (11:52→21:06)
[2018-05-04] MEDS: Nortriptyline HCl 25 MG CAP PO SCH (11:52)
[2018-05-04] MEDS: Hydrochlorothiazide 25 MG TAB PO SCH (11:52)
[2018-05-04] MEDS: Lisinopril 20 MG TAB PO SCH (11:52)
[2018-05-04] MEDS: NPH, Human Insulin Isophane 300 UNIT/3 ML VIAL SC SCH ×2 (12:42→22:19)
[2018-05-04 13:07] LABS: Hemoglobin 7.7 g/dL (14.0-18.0)
[2018-05-04] MEDS ORDERED: Lidocaine 1% PF 5 ML VIAL ONE (14:55)
[2018-05-04] MEDS ORDERED: PROPOFOL 200 MG/20 ML VIAL ONE (14:55)
--- NOTE | 2018-05-04 16:33 | PDOC.PN ---
- Subjective Encounter Start Date: 05/04/18 Encounter Start Time: 16:51 Pt seen for followup re: acute blood loss anemia. Denies chest pain, shortness of breath, fevers or chills. - Objective Resuscitation Status: Resuscitation Status FULL:Full Resuscitation MAR Reviewed: Yes Vital Signs & Weight: Vital Signs (12 hours) Temp Pulse Resp BP BP Pulse Ox 05/04/18 11:52 142/82 H 05/04/18 10:23 97.9 F 90 18 145/82 H 98 05/04/18 07:50 98 05/04/18 07:40 98 F 85 18 118/60 98 05/04/18 04:52 98.2 F 92 20 119/64 94 L Weight Admit Weight 221 lb Weight 231 lb 12.8 oz I&O: 05/03/18 05/04/18 05/05/18 06:59 06:59 06:59 Intake Total 2698 2143 200 Output Total 1225 Balance 1473 2143 200 Result Diagrams: 05/04/18 12:50 05/01/18 05:37 Additional Labs: Accuchecks 05/04/18 05/04/18 05/04/18 11:05 08:10 05:40 POC Glucose 154 H 133 H 80 05/03/18 05/03/18 20:31 16:36 POC Glucose 226 H 396 H EKG Reviewed by me: Yes (Tele: NSR) Phys Exam - Physical Examination Obese HEENT: moist MMs Neck: supple Respiratory: clear to auscultation bilateral Cardiovascular: RRR Gastrointestinal: soft Neurological: moves all 4 limbs Psychiatric: normal affect Dx/Plan (1) Acute blood loss anemia Code(s): D62 - ACUTE POSTHEMORRHAGIC ANEMIA Status: Acute Comment: s/p EGD and C-scope today, follow hemoglobin (2) Gastric ulcer Code(s): K25.9 - GASTRIC ULCER, UNSP ACUTE OR CHRONIC, W/O HEMOR OR PERF Status: Acute Comment: on PPI BID (3) Pulmonary embolus Code(s): I26.99 - OTHER PULMONARY EMBOLISM WITHOUT ACUTE COR PULMONALE Status : Acute Comment: off of anticoagulation - Plan * . Review of Systems - Review of Systems Respiratory: negative: Cough, Shortness of Breath, SOB with Excertion, Pleuritic Pain, Wheezing Cardiovascular: negative: chest pain, palpitations, orthopnea, paroxysmal nocturnal dyspnea, edema, light headedness - Medications/Allergies Allergies/Adverse Reactions: Allergies Allergy/AdvReac Type Severity Reaction Status Date / Time No Known Allergies Allergy Verified 04/30/18 14:47 Medications: Current Medications Acetaminophen (Tylenol) 650 mg PO Q4H PRN PRN Reason: Headache/Fever or Pain Atorvastatin Calcium (Lipitor) 40 mg PO HS [facility] Last Admin: 05/03/18 20:58 Dose: 40 mg Dextrose/Water (Dextrose 50%) 25 gm SLOW IVP PRN PRN PRN Reason: Hypoglycemia Ferrous Sulfate (Feosol) 325 mg PO BID-[facility] Gabapentin (Neurontin) 300 mg PO TID [facility] Last Admin: 05/04/18 11:52 Dose: 300 mg Glucagon (Glucagon) 1 mg IM PRN PRN PRN Reason: Hypoglycemia Hydrochlorothiazide (Hydrochlorothiazide) 25 mg PO DAILY [facility] Last Admin: 05/04/18 11:52 Dose: 25 mg Dextrose/Water (D5w) 1,000 mls @ 0 mls/hr IV .Q0M PRN PRN Reason: Hypoglycemia Dextrose/Sodium Chloride (D5 0.9% Ns) 1,000 mls @ 75 mls/hr IV .[id number] [facility] Last Admin: 05/04/18 06:27 Dose: 1,000 mls Insulin Human Lispro (Humalog) 0 units SC .MILD SLIDING SCALE PRN PRN Reason: Mild Correctional Scale Last Admin: 05/03/18 17:04 Dose: 6 unit Insulin Human NPH (Humulin N) 40 unit SC BID [facility] Last Admin: 05/04/18 12:42 Dose: Not Given Levothyroxine Sodium (Synthroid) 25 mcg PO 0600 [facility] Last Admin: 05/04/18 06:26 Dose: 25 mcg Lisinopril (Zestril) 20 mg PO DAILY [facility] Last Admin: 05/04/18 11:52 Dose: 20 mg Metformin HCl (Glucophage Xr) 750 mg PO QPM-[facility] Last Admin: 05/03/18 17:04 Dose: 750 mg Nortriptyline HCl (Pamelor) 25 mg PO DAILY [facility] Last Admin: 05/04/18 11:52 Dose: 25 mg Pantoprazole Sodium (Protonix) 40 mg PO BID [facility] Last Admin: 05/04/18 11:52 Dose: 40 mg Risperidone (Risperidone) 0.5 mg PO HS PRN PRN Reason: MOOD ENHANCER Sodium Chloride (Flush - Normal Saline) 10 ml IVF Q12HR [facility] Last Admin: 05/04/18 11:52 Dose: 10 ml Sodium Chloride (Flush - Normal Saline) 10 ml IVF PRN PRN PRN Reason: Saline Flush
[2018-05-04] MEDS: HumaLOG 300 UNITS/3 ML VIAL SC PRN (17:05)
[2018-05-04] MEDS: metFORMIN XR 500 MG TAB PO SCH (17:36)
[2018-05-04 19:46] LABS: Hemoglobin 7.5 g/dL (14.0-18.0)
[2018-05-04] MEDS: Atorvastatin Calcium 40 MG TAB PO SCH (21:07)
[2018-05-04 23:28] LABS: Hemoglobin 8.5 g/dL (14.0-18.0)
[2018-05-05] MEDS: Levothyroxine Sodium 25 MCG TAB PO SCH (05:06)
[2018-05-05 05:11] LABS: #Basophils 0.1 thou/uL (0.0-0.2); #Eosinphils 0.7 thou/uL (0.0-0.7); #Lymphocytes 3.6 thou/uL (1.20-3.40); #Monocytes 0.8 thou/uL (0.11-0.59); #Neutrophils 5.3 thou/uL (1.40-6.50); %Basophils 0.7 % (0.0-1.0); %Eosinophils 6.5 % (0.0-10.0); %Lymphocytes 34.1 % (21.0-51.0); %Monocytes 7.5 % (0.0-10.0); %Neutrophils 51.2 % (42.0-75.0); Hemoglobin 7.4 g/dL (14.0-18.0); Mean Corpuscular HGB CONC 34.2 g/dL (32.0-36.0); Mean Corpuscular Hemoglobin 33.8 pg (27.0-31.0); Mean Platelet Volume 7.3 fL (7.4-10.4); Platelet Count 237 thou/uL (130-400); RBC Distribution Width 17.2 % (11.5-14.5); Red Blood Cell (RBC) Count 2.17 mill/uL (4.70-6.10); White Blood Cell (WBC) Count 10.4 thou/uL (4.8-10.8)
[2018-05-05 05:47] LABS: Anion Gap 11 mmol/L (10-20); BUN (Urea Nitrogen) 18 mg/dL (8.4-25.7); Calc. Creatinine Clearance 117 mL/min (70-130); Calcium 8.3 mg/dL (7.8-10.44); Carbon Dioxide 24 mmol/L (23-31); Chloride 107 mmol/L (98-107); Estimated GFR-MDRD Greater than 90; Glucose 140 mg/dL (80-115); Potassium 4.3 mmol/L (3.5-5.1); Sodium 138 mmol/L (136-145)
[2018-05-05] MEDS: Gabapentin 300 MG CAP PO SCH ×2 (08:50→16:27)
[2018-05-05] MEDS: Lisinopril 20 MG TAB PO SCH (08:51)
[2018-05-05] MEDS: Nortriptyline HCl 25 MG CAP PO SCH (08:51)
[2018-05-05] MEDS: Hydrochlorothiazide 25 MG TAB PO SCH (08:51)
[2018-05-05] MEDS: NPH, Human Insulin Isophane 300 UNIT/3 ML VIAL SC SCH (08:52)
[2018-05-05] MEDS: Ferrous Sulfate 325 MG TAB PO SCH ×2 (09:06→16:27)
[2018-05-05 10:32] LABS: Hemoglobin 9.2 g/dL (14.0-18.0)
[2018-05-05] MEDS: Dextrose 5 % And 0.9 % NaCl 1,000 ML IV SCH (11:41)
[2018-05-05 11:46] VITALS: BP 133/67; TEMP 98.1
[2018-05-05] MEDS: HumaLOG 300 UNITS/3 ML VIAL SC PRN (12:31)
[2018-05-05] MEDS: metFORMIN XR 500 MG TAB PO SCH (16:27)
--- NOTE | 2018-05-05 23:29 | DIS ---
DATE OF ADMISSION: 04/30/2018 DATE OF DISCHARGE: 05/05/2018 PRIMARY CARE PROVIDER: Curt Christianson M.D. DISCHARGE DIAGNOSES: 1. Anemia of acute blood loss. 2. Symptomatic anemia. CONSULTATIONS DURING THIS HOSPITALIZATION: Gastroenterology, Goyo Parra M.D. CONDITION OF PATIENT ON THE DAY OF DISCHARGE: Stable. I assessed Mr. Marquis on the day of discharg e. He denies any chest pain or shortness of breath. Vital signs are stable. S1 and S2 are heard, r egular. Lungs are clear to auscultation bilaterally. HOSPITAL COURSE: Mr. Marquis is a pleasant 62-year-old gentleman who was admitted to [facility] on 04/30/2018 for acute blood loss anemia. This is in the context of being on ant icoagulation for recent thromboembolism. He received packed RBC transfusions. He was seen by Gastroenterology Service. He was also seen by P ulmonology Service. It was felt that the risk of anticoagulation was high because of gastrointestina l bleeding. Pulmonary service recommended against putting an IVC filter at this time. They also rec ommended that the patient follow up either with Pulmonology Service or with primary care provider in about 6 months to reimage a 5 mm pulmonary nodule found on previous CT imaging. He underwent gastroscopy on 05/02/2018. He was found to have 2 clean-based gastric ulcers in the gas tric antrum and along the greater curvature. There were no high risk stigmata for rebleeding. There was no old blood or active bleeding on that exam. The larger antral ulcer represents the site of re cent APC treatment of his Dieulafoy lesion, according to salon shampoo assistant. He had further drop in his hemoglobin, which needed packed RBC transfusions. He went for EGD and col onoscopy on 05/04/2018. There was no old blood or active bleeding on EGD or colonoscopy. Poor bowel preparation in the right colon with significant amount of dark, but nonmelenic stool in the right co brice. He also had internal and external hemorrhoids, nonbleeding. He also had 4 clean-based gastric ulcers with no high risk stigmata for rebleeding. He is recommended twice daily proton pump inhibitor. He has also been started on iron therapy. [facility] roenterology service would like to follow up with him in approximately 1 week's time. As mentioned earlier, he will need reimaging in about 6 months' time to evaluate the pulmonary nodule . On the day of discharge, he had a hemoglobin of 9.2 and hematocrit of 27.1. His creatinine is normal at 0.96. Sodium and potassium are normal. DISCHARGE MEDICATIONS: Ferrous sulfate 325 mg 2 times a day, rivaroxaban was discontinued, Lipitor 40 mg at bedtime, gabapentin 300 mg 3 times a day, hydrochlorothiazide 25 mg daily, Novolin N 40 unit s twice daily, Novolin R as needed, Synthroid 25 mcg daily, lisinopril 20 mg daily, metformin 750 mg in the evening, nortriptyline 25 mg daily, Risperdal 0.5 mg at bedtime as needed and Protonix 40 mg 2 times a day. Many thanks for allowing me to participate in your patient's care. Please feel free to contact me wi th any questions or concerns. DISCHARGE DESTINATION: Home. TOTAL AMOUNT OF TIME SPENT COORDINATING THIS DISCHARGE: 33 minutes.
--- NOTE | 2018-05-10 18:19 | EKG ---
Test Reason : Blood Pressure : / mmHG Vent. Rate : 099 BPM Atrial Rate : 099 BPM P-R Int : 156 ms QRS Dur : 086 ms QT Int : 332 ms P-R-T Axes : 067 051 056 degrees QTc Int : 426 ms Normal sinus rhythm Normal ECG Confirmed by JOSE JONES, NASREEN Kimbrough ([id number]), school photograph editor RIAZ ART ([id number]) on 05/10/2018 6:19:43 PM Referred By: Confirmed By:NASREEN GARCIA MD
== END 2018-05-05 17:23 | disposition home or self-care (01) | DRG 811 ==
LOC: ERS 10:16 → 2NO 12:05 → T4-A 05-04 10:23
PROVIDERS: ADMIT Internal Medicine; ATTEND Internal Medicine
PROC: B51D1ZZ Fluoroscopy of Bilateral Lower Extremity Veins using Low Osmolar Contrast (ICD-10-PCS; 2018-04-30)
PROC: 0DJ08ZZ Inspection of Upper Intestinal Tract, Via Natural or Artificial Opening Endoscopic (ICD-10-PCS; principal; 2018-05-04)
PROC: 0DJD8ZZ Inspection of Lower Intestinal Tract, Via Natural or Artificial Opening Endoscopic (ICD-10-PCS; 2018-05-04)
DX: D62 Acute posthemorrhagic anemia (principal); K31.82 Dieulafoy lesion (hemorrhagic) of stomach and duodenum; I26.99 Other pulmonary embolism without acute cor pulmonale; N17.9 Acute kidney failure, unspecified; K92.1 Melena; Z79.01 Long term (current) use of anticoagulants; K25.9 Gastric ulcer, unspecified as acute or chronic, without hemorrhage or perforation; K64.4 Residual hemorrhoidal skin tags; K64.8 Other hemorrhoids; Z79.4 Long term (current) use of insulin; I10 Essential (primary) hypertension; E03.9 Hypothyroidism, unspecified; B18.2 Chronic viral hepatitis C; Z85.038 Personal history of other malignant neoplasm of large intestine; F17.210 Nicotine dependence, cigarettes, uncomplicated; E11.42 Type 2 diabetes mellitus with diabetic polyneuropathy; E78.5 Hyperlipidemia, unspecified
CPT/HCPCS: 36415; 36416; 36430; 71045; 80048; 80053; 82105; 82274; 82550; 82553; 83880; 84484; 85014; 85018; 85025; 85610; 85730; 86850; 86900; 86901; 93005; 93970; 96374; A4216; C9113; J1815; J2001; J2704; P9016

== ENCOUNTER 2018-05-08 18:04 | Inpatient (IN) | payer OTHER ==
[~2018-05-08 18:04] MED LIST: ISOVUE-370 76%-LOCM 1 ML ONE
[2018-05-08 18:59] LABS: #Basophils 0.1 thou/uL (0.0-0.2); #Eosinphils 0.1 thou/uL (0.0-0.7); #Lymphocytes 2.6 thou/uL (1.20-3.40); #Monocytes 0.6 thou/uL (0.11-0.59); #Neutrophils 8.5 thou/uL (1.40-6.50); %Basophils 0.5 % (0.0-1.0); %Eosinophils 0.7 % (0.0-10.0); %Monocytes 5.2 % (0.0-10.0); %Neutrophils 71.6 % (42.0-75.0); Mean Corpuscular HGB CONC 32.4 g/dL (32.0-36.0); Mean Corpuscular Hemoglobin 34.1 pg (27.0-31.0); Mean Platelet Volume 8.1 fL (7.4-10.4); Platelet Count 301 thou/uL (130-400); RBC Distribution Width 16.3 % (11.5-14.5); Red Blood Cell (RBC) Count 1.76 mill/uL (4.70-6.10); White Blood Cell (WBC) Count 11.9 thou/uL (4.8-10.8)
[2018-05-08 19:16] LABS: ALT (SGPT) 12 U/L (8-55); AST (SGOT) 23 U/L (5-34); Albumin 3.1 g/dL (3.4-4.8); Alkaline Phosphatase 53 U/L (40-150); Anion Gap 16 mmol/L (10-20); BUN (Urea Nitrogen) 57 mg/dL (8.4-25.7); Bilirubin, Total 0.4 mg/dL (0.2-1.2); CK (CPK) 183 U/L (30-200); Calc. Creatinine Clearance 0 mL/min (70-130); Calcium 8.4 mg/dL (7.8-10.44); Carbon Dioxide 19 mmol/L (23-31); Chloride 102 mmol/L (98-107); Estimated GFR-MDRD 35; Globulin 3.1 g/dL (2.4-3.5); Glucose 216 mg/dL (80-115); Potassium 4.9 mmol/L (3.5-5.1); Protein, Total 6.2 g/dL (5.8-8.1); Sodium 132 mmol/L (136-145)
[2018-05-08 19:19] LABS: CKMB 4.2 ng/mL (0-6.6); Troponin I Less than 0.010 ng/mL (< 0.028)
--- NOTE | 2018-05-08 20:17 | RAD ---
TWO AP VIEWS CHEST 05/08/18 HISTORY: Dyspnea. Two AP views chest obtained on 05/08/18. Comparison made to previous exam from 04/30/18. AP view chest demonstrates the lungs to be well aerated. No evidence of acute intrathoracic abnormali ty seen. No evidence of effusions, pneumonia or pneumothorax seen. Calcifications of the aorta seen. IMPRESSION: Unremarkable AP view chest. POS: [facility]
--- NOTE | 2018-05-08 20:48 | CT ---
CT BRAIN: 05/08/18 HISTORY: Headache. Noncontrast enhanced CT images of the brain is obtained on 05/08/18. Comparison made to previous exam from 02/28/18. Noncontrast enhanced CT images of the brain demonstrate an area of hypodensity in the left occipital lobe compatible with an area of stroke. This was not present on the patient's previous CT from 8 and appears to have developed in the interim. No other intracranial abnormality seen. IMPRESSION: Interval development of an area of left occipital stroke. Correlate with clinical exam. Does the dominic ent have right visual field defects? POS: [facility]
--- NOTE | 2018-05-08 20:56 | CT ---
CONTRAST ENHANCED CTA CHEST 05/08/18 Comparison made to previous exam from 03/23/18. Contrast enhanced CTA of the chest is obtained. 2D and 3D reconstructed images performed on an [employer] 3D workstation. CTA chest demonstrates an area of soft tissue density in the right middle lobe unchanged since the pr evious exam. Some areas of atelectasis or scar also appears to be in the left lingula. No evidence of pleural or pericardial effusion seen. Coronary artery calcifications seen. No definite evidence of filling defects seen in the pulmonary arteries at this time. Again, anterior aspect right hepatic lobe ill-defined mass is seen. Further work up using elective el evation and surgical consultation to work up a possible hepatic lesion is recommendation. Hepatic mal ignancy cannot be excluded. This lesion has been on numerous previous comparison CT angiograms. IMPRESSION: No evidence of pulmonary emboli. POS: [facility]
[2018-05-08] MEDS ORDERED: Pantoprazole 40 MG VIAL ONE (21:18)
[2018-05-08] MEDS ORDERED: Ondansetron ODT 4 MG TAB SL PRN (22:25)
[2018-05-08] MEDS ORDERED: Ondansetron HCl/PF 4 MG/2 ML Vial IVP PRN (22:25)
[2018-05-08] MEDS ORDERED: Acetaminophen 325 MG TAB PO PRN (22:25)
[2018-05-08 23:07] VITALS: BMI 32.2
[2018-05-09] MEDS ORDERED: Bisacodyl 5 MG TAB PO PRN (03:54)
[2018-05-09] MEDS ORDERED: hydrALAZINE 20 MG/ML VIAL SLOW IVP PRN (03:54)
[2018-05-09] MEDS ORDERED: Dextrose 50% Abboject 50 ML SYRINGE SLOW IVP PRN (04:26)
[2018-05-09] MEDS ORDERED: Insulin Regular 300 UNITS/3 ML VIAL SC PRN (04:26)
[2018-05-09] MEDS ORDERED: Dextrose 5% in Water 1,000 ML IV PRN (04:26)
--- NOTE | 2018-05-09 05:04 | HP ---
CHIEF COMPLAINT: Shortness of breath. HISTORY OF PRESENT ILLNESS: This is a 62-year-old male with past medical history of bleeding gastric ulcer; diabetes mellitus type 2; hypothyroidism; hyperlipidemia; hypertension; hepatitis C; malignan cy with primary site being the colon, on chemo; pulmonary embolism, being admitted for shortness of b reath and dizziness. Per the patient, he has been having shortness of breath, weakness, and dizzines s prior to the day of admission. The patient states that he has some episodes where he feels like he has syncope. The patient also reports some mild headaches. Of note, patient was recently seen in [facility] on 04/30/2018 for similar episodes of shortness of breath and weakness. At that time, th e patient was found to be anemic and the patient was worked up during the visit. Prior to today, the patient has had numerous episodes where patient was found to be anemic and the patient was worked up by GI. The patient had endoscopy done in the past on 04/27/2018, where patient was found to have Di eulafoy lesions. The patient is also on Xarelto per the records. At this time, patient states that he does not have any fever, nausea, or vomiting; however, he had black tarry stool per rectum and pat ient stated that this black tarry stool was a lot and he has had episodes of these black tarry stools and this has been going on for months. REVIEW OF SYSTEMS: Positive for weakness, dizziness, shortness of breath, headaches. Otherwise, as documented in HPI. All other systems are reviewed and are negative. PAST MEDICAL HISTORY: Gastric ulcers; diabetes mellitus type 2; hypothyroidism; hyperlipidemia; hype rtension; hepatitis C; colon cancer, on chemo; pulmonary embolism in 03/2018. PAST SURGICAL HISTORY: Gastric ulcer repair, cauterized tumors from liver. PSYCHIATRIC HISTORY: No previous psychiatric history. SOCIAL HISTORY: The patient does not use any illicit drugs. Patient denies alcohol use. Patient sm okes 1 pack per day. KNOWN ALLERGIES: No known drug allergies. FAMILY HISTORY: Reviewed and noncontributory. CURRENT MEDICATIONS: Patient takes metformin, Xarelto, gabapentin, levothyroxine, Lipitor, hydrochlo rothiazide, lisinopril, nortriptyline, Protonix, Risperdal, Novolin R. PHYSICAL EXAMINATION: VITAL SIGNS: Blood pressure 109/59, pulse 96, respiratory rate of 18, temperature 98 on room air. EKG: Reading is normal. ED COURSE: The patient received 1 liter of saline and 80 mg of Protonix. LABORATORY DATA: WBC 11.9, hemoglobin 6.0, hematocrit is 18.5, platelet is 201,000, RDW 16.3, MCV 10 5.0. Sodium 132, potassium 4.9, chloride 102, carbon dioxide 19, anion gap of 15, BUN is 57, creatin ine is 2.28, GFR of 35, glucose of 216, calcium of 8.4, AST 23, ALT 12, creatinine kinase 183. Tropo nins less than 0.010. BNP is 11.1, albumin 3.1. IMAGING: CTA of the chest showed no evidence of pulmonary embolism. Brain CT showed interval develo pment of an area of left occipital stroke. Chest x-ray is unremarkable. ASSESSMENT AND PLAN: 1. This is a 62-year-old male being admitted for shortness of breath likely due to anemia of acute b lood loss. Patient is having black tarry stools. At this time, patient is going to be transfused IA BCs. We will consult GI to come and see the patient. The patient has numerous history of anemia and gastrointestinal bleed. We will monitor the patient. We will follow up on morning labs. 2. Microcytic anemia. We will monitor the patient at this time. We will continue to give the patie nt PRBC. 3. Acute on chronic renal failure, likely due to prerenal azotemia. We will continue patient on IV fluids. We have ordered renal function test, we will follow up on this. 4. History of hypertension. We will monitor patient's blood pressure. We will give the patient blo od pressure medication as needed. 5. History of diabetes mellitus type 2. Give patient's insulin sliding scale. 6. Hypothyroidism. We will continue patient on his current medications. 7. Hyperlipidemia. Continue the patient on his current medications. 8. Deep venous thrombosis and gastrointestinal prophylaxis. We will hold off all anticoagulation. We will do Pepcid for gastrointestinal prophylaxis.
[2018-05-09 06:29] LABS: Albumin 2.7 g/dL (3.4-4.8); Anion Gap 12 mmol/L (10-20); BUN (Urea Nitrogen) 59 mg/dL (8.4-25.7); Calc. Creatinine Clearance 67 mL/min (70-130); Calcium 8.2 mg/dL (7.8-10.44); Carbon Dioxide 19 mmol/L (23-31); Chloride 107 mmol/L (98-107); Estimated GFR-MDRD 50; Glucose 141 mg/dL (80-115); Phosphorus 3.6 mg/dL (2.3-4.7); Potassium 4.2 mmol/L (3.5-5.1); Sodium 134 mmol/L (136-145)
[2018-05-09 08:35] LABS: #Eosinphils 0.2 thou/uL (0.0-0.7); #Lymphocytes 3.6 thou/uL (1.20-3.40); %Basophils 0.4 % (0.0-1.0); %Eosinophils 1.9 % (0.0-10.0); %Lymphocytes 30.2 % (21.0-51.0); %Monocytes 8.3 % (0.0-10.0); %Neutrophils 59.2 % (42.0-75.0); Hemoglobin 7.4 g/dL (14.0-18.0); Mean Corpuscular HGB CONC 33.4 g/dL (32.0-36.0); Mean Corpuscular Hemoglobin 32.1 pg (27.0-31.0); Mean Corpuscular Volume 96.2 fL (78.0-98.0); Mean Platelet Volume 7.8 fL (7.4-10.4); Platelet Count 239 thou/uL (130-400); RBC Distribution Width 16.2 % (11.5-14.5); Red Blood Cell (RBC) Count 2.29 mill/uL (4.70-6.10); White Blood Cell (WBC) Count 11.8 thou/uL (4.8-10.8)
[2018-05-09] MEDS: Famotidine/PF 20 mg/2ml Vial SLOW IVP SCH (08:52)
[2018-05-09 09:08] LABS: ALT (SGPT) 12 U/L (8-55); AST (SGOT) 23 U/L (5-34); Alkaline Phosphatase 47 U/L (40-150); Bilirubin, Total 0.3 mg/dL (0.2-1.2); Globulin 2.8 g/dL (2.4-3.5); Protein, Total 5.5 g/dL (5.8-8.1)
[2018-05-09] MEDS ORDERED: ISOVUE-370 76%-LOCM 1 ML ONE (12:11)
--- NOTE | 2018-05-09 12:23 | PDOC.PN ---
- Subjective Encounter Start Date: 05/09/18 Encounter Start Time: 09:45 Subjective: no edi bleeding now but had dark stools at home -: has issues with seeing from last 2-3 months now, thinks his glasses need ch -: -anging. No diplopia but has blurry vision - Objective Resuscitation Status: Resuscitation Status FULL:Full Resuscitation MAR Reviewed: Yes Vital Signs & Weight: Vital Signs (12 hours) Temp Pulse Pulse Resp BP BP Pulse Ox 05/09/18 08:15 98 F 98 20 95/55 L 98 05/09/18 08:00 98 05/09/18 04:12 98.3 F 88 16 109/51 L 05/09/18 01:50 98.1 F 91 16 104/53 L 05/09/18 01:35 98.5 F 95 16 109/54 L 05/09/18 01:25 98.5 F 95 16 109/54 L Weight Weight 231 lb 1.6 oz I&O: 05/08/18 05/09/18 05/10/18 06:59 06:59 06:59 Intake Total 700 Output Total 400 Balance 300 Result Diagrams: 05/09/18 05:59 05/09/18 05:59 Additional Labs: Accuchecks 05/09/18 05:58 POC Glucose 162 H Phys Exam - Physical Examination HEENT: PERRLA, moist MMs Neck: no JVD, supple Respiratory: no wheezing, no rales Cardiovascular: RRR, no significant murmur Gastrointestinal: soft, non-tender, positive bowel sounds Musculoskeletal: no edema, pulses present Neurological: non-focal, moves all 4 limbs Psychiatric: A&O x 3 Dx/Plan (1) GI bleed Code(s): K92.2 - GASTROINTESTINAL HEMORRHAGE, UNSPECIFIED Status: Acute Qualifiers: GI bleed type/associated pathology: unspecified gastrointestinal hemorrhage type Qualified Code(s): K92.2 - Gastrointestinal hemorrhage, unspecified (2) Acute blood loss anemia Code(s): D62 - ACUTE POSTHEMORRHAGIC ANEMIA Status: Acute (3) CVA (cerebral vascular accident) Code(s): I63.9 - CEREBRAL INFARCTION, UNSPECIFIED Status: Acute Qualifiers: CVA mechanism: unspecified Qualified Code(s): I63.9 - Cerebral infarction, unspecified Comment: left occipital cva unclear whether subacute/chronic (4) YUKI (acute kidney injury) Code(s): N17.9 - ACUTE KIDNEY FAILURE, UNSPECIFIED Status: Acute (5) Metabolic acidosis Code(s): E87.2 - ACIDOSIS Status: Acute (6) Hypothyroidism Code(s): E03.9 - HYPOTHYROIDISM, UNSPECIFIED Status: Chronic Qualifiers: Hypothyroidism type: unspecified Qualified Code(s): E03.9 - Hypothyroidism , unspecified (7) H/O chronic hepatitis Code(s): Z87.19 - PERSONAL HISTORY OF OTHER DISEASES OF THE DIGESTIVE SYSTEM Status: Chronic Comment: Hepatitis C (8) Dyslipidemia Code(s): E78.5 - HYPERLIPIDEMIA, UNSPECIFIED Status: Chronic (9) Dieulafoy lesion of stomach Code(s): K31.82 - DIEULAFOY LESION (HEMORRHAGIC) OF STOMACH AND DUODENUM Status: Acute (10) Gastric ulcer Code(s): K25.9 - GASTRIC ULCER, UNSP ACUTE OR CHRONIC, W/O HEMOR OR PERF Status: Chronic Qualifiers: Gastric ulcer chronicity: chronic Comment: on PPI BID (11) Pulmonary embolus Code(s): I26.99 - OTHER PULMONARY EMBOLISM WITHOUT ACUTE COR PULMONALE Status : Chronic Qualifiers: Chronicity: chronic Comment: off of anticoagulation due to recurrent severe anemia and gi bleed (12) Non-compliance Code(s): Z91.19 - PATIENT'S NONCOMPLIANCE W OTH MEDICAL TREATMENT AND REGIMEN Status: Acute (13) H/O: substance abuse Code(s): Z87.898 - PERSONAL HISTORY OF OTHER SPECIFIED CONDITIONS Status: Chronic - Plan urine drug screen -: continue protonix, GI consult -: recieved 2 units prbc -: liver mass, further w/u per GI adv -: ?colonoscopy to r/o malignancy in view of rec severe anemia * . Review of Systems - Medications/Allergies Allergies/Adverse Reactions: Allergies Allergy/AdvReac Type Severity Reaction Status Date / Time No Known Allergies Allergy Verified 04/30/18 14:47 Medications: Current Medications Atorvastatin Calcium (Lipitor) 80 mg PO HS [facility] Bisacodyl (Dulcolax) 10 mg PO DAILYPRN PRN PRN Reason: Constipation Dextrose/Water (Dextrose 50%) 25 gm SLOW IVP PRN PRN PRN Reason: Hypoglycemia Famotidine (Pepcid) 20 mg SLOW IVP DAILY [facility] Last Admin: 05/09/18 08:52 Dose: 20 mg Glucagon (Glucagon) 1 mg IM PRN PRN PRN Reason: Hypoglycemia Hydralazine HCl (Apresoline) 10 mg SLOW IVP Q4H PRN PRN Reason: BP > 220/110 Dextrose/Water (D5w) 1,000 mls @ 0 mls/hr IV .Q0M PRN PRN Reason: Hypoglycemia Insulin Human Regular (Humulin R) 0 units SC .MILD SLIDING SCALE PRN PRN Reason: Mild Correctional Scale Sodium Chloride (Flush - Normal Saline) 10 ml IVF Q12HR [facility] Last Admin: 05/09/18 08:53 Dose: 10 ml Sodium Chloride (Flush - Normal Saline) 10 ml IVF PRN PRN PRN Reason: Saline Flush
[2018-05-09 14:23] LABS: Acetaminophen Less than 6.0 mcg/mL (10.0-30.0); Alcohol Less than 10 mg/dL (Less than 10); Salicylate Less than 8.0 mg/dL (15.0-30.0)
--- NOTE | 2018-05-09 14:46 | NM ---
RADIONUCLIDE GI TAGGED RED BLOOD CELL BLEEDING SCAN: HISTORY: Anemia. Melena. FINDINGS: Early images show normal vascular uptake. Over the course of 71 minutes, there is gradual increase i n uptake in the left upper quadrant, becoming larger in area and eventually extending towards the low er mid abdomen on the latest images. No uptake is reliably demonstrated at the stomach or duodenum. The pattern is not typical for the colon. IMPRESSION: Low level enteric hemorrhage left upper quadrant, favored to be within the proximal jejunum. POS: [facility]
[2018-05-09 14:47] LABS: CEA, Serum 2.08 ng/mL (< or = 5.0)
[2018-05-09] MEDS: Sodium Chloride 0.9% 1,000 ML IV SCH (14:58)
[2018-05-09 15:08] LABS: HBCM Index 0.05 S/CO (0-0.79); HBSAg Index 0.16 S/CO (0-0.99); Hep A IgM AB Non-Reactive (NonReactive); Hep A IgM S/CO 0.07 S/CO (0-0.79); Hep B Surf Ag Non-Reactive S/CO (NonReactive); Hepatitis B Core IGM Abs Non-Reactive (NonReactive)
[2018-05-09 16:29] LABS: Hep C IgG Ab Reflex HepC Qnt (NonReactive); Hep C Index 15.88 S/CO (0-0.79)
[2018-05-09 19:38] LABS: Amphetamine Not Detected (NotDetected); Barbiturates Screen Not Detected (NotDetected); Benzodiazepine Screen Not Detected (NotDetected); Cocaine Metabolite Screen Detected (NotDetected); Medtox Reader # READER 1; Methadone Not Detected (NotDetected); Methamphetamine Detected (NotDetected); Opiate Screen Not Detected (NotDetected); Phencyclidine (PCP) Not Detected (NotDetected); THC/Cannabinoid Screen Not Detected (NotDetected); Tricyclic Screen Detected (NotDetected)
[2018-05-09 19:39] LABS: Medtox Control Line Valid? VALID (VALID); Oxycodone Screen Not Detected (NotDetected)
[2018-05-09] MEDS ORDERED: Atorvastatin Calcium 40 MG TAB PO SCH (21:00)
--- NOTE | 2018-05-09 22:22 | CT ---
CT OF ABDOMEN AND PELVIS PERFORMED WITH CONTRAST ENHANCEMENT: 05/09/18 HISTORY: Nausea and vomiting, abdominal pain, more upper. Evaluation for possible malignancy. CT angio of chest performed 05/08/[address] abdomen and chest performed 02/28/18 Approximately 5 mm right middle lobe pulmonary nodule is again identified and stable. The right lobe liver mass is unchanged in size or appearance measuring approximately 3.8 cm. A smalle r hypodensity is seen within the left lobe, also stable. This is incompletely characterized. The sple en is normal in size. The pancreas shows no mass and the gallbladder region is unremarkable. Right and left adrenal gland and right and left kidneys are normal in appearance. No significant renaldo aortic or mesenteric lymphadenopathy is noted. No signs of bowel obstruction. The appendix is more re trocecal in location. It is normal in size. CT OF PELVIS PERFORMED WITH CONTRAST ENHANCEMENT: No adenopathy, mass or free fluid. IMPRESSION: Stable right middle lobe pulmonary nodule and right lobe liver mass. POS: [facility]
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
[2018-05-10 04:58] LABS: #Basophils 0.1 thou/uL (0.0-0.2); #Eosinphils 0.5 thou/uL (0.0-0.7); #Neutrophils 6.5 thou/uL (1.40-6.50); %Basophils 0.6 % (0.0-1.0); %Eosinophils 4.2 % (0.0-10.0); %Lymphocytes 27.1 % (21.0-51.0); %Monocytes 9.3 % (0.0-10.0); %Neutrophils 58.9 % (42.0-75.0); Mean Corpuscular HGB CONC 33.7 g/dL (32.0-36.0); Mean Corpuscular Hemoglobin 33.2 pg (27.0-31.0); Mean Corpuscular Volume 98.5 fL (78.0-98.0); Mean Platelet Volume 7.4 fL (7.4-10.4); Platelet Count 261 thou/uL (130-400); RBC Distribution Width 16.9 % (11.5-14.5); Red Blood Cell (RBC) Count 1.82 mill/uL (4.70-6.10); White Blood Cell (WBC) Count 11.1 thou/uL (4.8-10.8)
[2018-05-10 05:14] LABS: ALT (SGPT) 11 U/L (8-55); AST (SGOT) 17 U/L (5-34); Albumin 2.6 g/dL (3.4-4.8); Alkaline Phosphatase 46 U/L (40-150); Anion Gap 8 mmol/L (10-20); BUN (Urea Nitrogen) 48 mg/dL (8.4-25.7); Bilirubin, Total 0.4 mg/dL (0.2-1.2); Calc. Creatinine Clearance 89 mL/min (70-130); Carbon Dioxide 25 mmol/L (23-31); Cardiac Risk 5.5 (Less than 4.5); Chloride 105 mmol/L (98-107); Cholesterol 104 mg/dl (< 200 Desired); Estimated GFR-MDRD 70; Globulin 2.7 g/dL (2.4-3.5); Glucose 202 mg/dL (80-115); HDL Cholesterol 19 mg/dL (>60 Neg Risk); LDL Cholesterol, Calculated 55 mg/dL; Potassium 4.8 mmol/L (3.5-5.1); Protein, Total 5.3 g/dL (5.8-8.1); Sodium 133 mmol/L (136-145); Triglycerides 150 mg/dL (Less than 150)
[2018-05-10] MEDS: Famotidine/PF 20 mg/2ml Vial SLOW IVP SCH (09:37)
[2018-05-10] MEDS: Sodium Chloride 0.9% 1,000 ML IV SCH (10:18)
[2018-05-10 11:48] VITALS: TEMP 98.4
[2018-05-10 12:04] VITALS: BP 110/55
--- NOTE | 2018-05-10 12:50 | PDOC.PN ---
- Subjective Encounter Start Date: 05/10/18 Encounter Start Time: 09:00 Subjective: no edi bleeding or abd pain or nausea -: no sob or chest pain -: is moving all extremities, no new vision changes - Objective Resuscitation Status: Resuscitation Status FULL:Full Resuscitation MAR Reviewed: Yes Vital Signs & Weight: Vital Signs (12 hours) Temp Pulse Pulse Resp BP BP Pulse Ox 05/10/18 11:47 98.4 F 97 16 130/60 97 05/10/18 11:43 98.5 F 96 20 110/55 L 100 05/10/18 11:41 98.2 F 100 20 117/56 L 100 05/10/18 09:00 98.3 F 97 20 111/57 L 99 05/10/18 08:32 98.1 F 101 H 20 124/60 98 05/10/18 08:15 98.0 F 98 05/10/18 08:00 98.2 F 104 H 16 118/56 L 97 05/10/18 07:20 99 05/10/18 03:21 98.5 F 101 H 16 105/54 L 96 Weight Weight 231 lb 1.6 oz Most Recent Monitor Data Heart Rate from ECG 98 NIBP 116/59 Respiration from ECG 20 I&O: 05/09/18 05/10/18 05/11/18 06:59 06:59 06:59 Intake Total 700 823 350 Output Total 400 Balance 300 823 350 Result Diagrams: 05/10/18 04:46 05/10/18 04:46 Phys Exam - Physical Examination HEENT: PERRLA Neck: no JVD, supple Respiratory: no wheezing, no rales Cardiovascular: RRR, no significant murmur Gastrointestinal: soft, non-tender, positive bowel sounds Musculoskeletal: no edema, pulses present Neurological: non-focal, moves all 4 limbs Psychiatric: normal affect, A&O x 3 Dx/Plan (1) GI bleed Code(s): K92.2 - GASTROINTESTINAL HEMORRHAGE, UNSPECIFIED Status: Acute Qualifiers: GI bleed type/associated pathology: unspecified gastrointestinal hemorrhage type Qualified Code(s): K92.2 - Gastrointestinal hemorrhage, unspecified Comment: likely bleed from jejunal site per nuclear bleeding scan (2) Acute blood loss anemia Code(s): D62 - ACUTE POSTHEMORRHAGIC ANEMIA Status: Acute (3) CVA (cerebral vascular accident) Code(s): I63.9 - CEREBRAL INFARCTION, UNSPECIFIED Status: Acute Qualifiers: CVA mechanism: unspecified Qualified Code(s): I63.9 - Cerebral infarction, unspecified Comment: left occipital cva unclear whether subacute/chronic (4) YUKI (acute kidney injury) Code(s): N17.9 - ACUTE KIDNEY FAILURE, UNSPECIFIED Status: Acute Comment: resolving (5) Metabolic acidosis Code(s): E87.2 - ACIDOSIS Status: Resolved (6) Hypothyroidism Code(s): E03.9 - HYPOTHYROIDISM, UNSPECIFIED Status: Chronic Qualifiers: Hypothyroidism type: unspecified Qualified Code(s): E03.9 - Hypothyroidism , unspecified (7) H/O chronic hepatitis Code(s): Z87.19 - PERSONAL HISTORY OF OTHER DISEASES OF THE DIGESTIVE SYSTEM Status: Chronic Comment: Hepatitis C (8) Dyslipidemia Code(s): E78.5 - HYPERLIPIDEMIA, UNSPECIFIED Status: Chronic (9) Dieulafoy lesion of stomach Code(s): K31.82 - DIEULAFOY LESION (HEMORRHAGIC) OF STOMACH AND DUODENUM Status: Acute (10) Gastric ulcer Code(s): K25.9 - GASTRIC ULCER, UNSP ACUTE OR CHRONIC, W/O HEMOR OR PERF Status: Chronic Qualifiers: Gastric ulcer chronicity: chronic Comment: on PPI BID (11) Pulmonary embolus Code(s): I26.99 - OTHER PULMONARY EMBOLISM WITHOUT ACUTE COR PULMONALE Status : Chronic Qualifiers: Chronicity: chronic Comment: off of anticoagulation due to recurrent severe anemia and gi bleed (12) Non-compliance Code(s): Z91.19 - PATIENT'S NONCOMPLIANCE W OTH MEDICAL TREATMENT AND REGIMEN Status: Acute (13) H/O: substance abuse Code(s): Z87.898 - PERSONAL HISTORY OF OTHER SPECIFIED CONDITIONS Status: Chronic - Plan has been accepted to [facility] in [place] for further w/u of jejunal bleed -: uds is +ve for cocaine and meth -: cea is -ve, hep C reflex is pending -: recieved 2 units yesterday, is getting 2 more U prbc prior to transfer -: Hb came back to 6g after 2 u yesterday, dc anytime * .
--- NOTE | 2018-05-10 12:57 | HP ---
DATE OF SERVICE: 05/10/2018 SUBJECTIVE: Mr. Marquis has had a few more dark bowel movements since admission. He has no abdomina l pain or nausea or vomiting. OBJECTIVE: VITAL SIGNS: Temperature is 98.4, pulse 97, blood pressure 130/60. GENERAL: He is in no acute distress, awake, alert. LUNGS: Clear to auscultation bilaterally. HEART: Regular rate and rhythm without murmur. ABDOMEN: Soft, nontender, nondistended. Bowel sounds are present. EXTREMITIES: No lower extremity edema. IMPRESSION: 1. Anemia secondary to acute blood loss. His hemoglobin this morning was 6. He is receiving 2 unit s of transfusion. 2. Apparent active GI bleed in the small intestine. Recent upper and lower endoscopy has been negat tiff for ongoing source within reach of the scopes. Tagged red blood cell scan shows a small bowel ac tive bleed thought to be likely proximal small intestine. 3. Polysubstance abuse. His toxicology screen is positive for methamphetamines and cocaine. RECOMMENDATIONS: 1. He is to complete a transfusion of the current 2 units ordered. 2. He has a bed at [facility] in [place] has been accepted. Plan is to transfer following completio n of his transfusion. 3. He will likely require balloon enteroscopy.
--- NOTE | 2018-05-10 20:45 | DIS ---
DATE OF ADMISSION: 05/08/2018 DATE OF DISCHARGE: 05/10/2018 DISCHARGE DISPOSITION: To [facility] for higher level of care. PRIMARY DISCHARGE DIAGNOSES: Acute blood loss anemia likely due to gastrointestinal bleed in the [facility] area per nuclear bleeding scan, status post 4 units of blood transfusion; acute kidney injury; m etabolic acidosis. SECONDARY DISCHARGE DIAGNOSES: History of chronic hepatitis C; acute cerebrovascular accident in the left occipital area, which might likely be subacute or chronic as patient has no acute visual sympto ms at present; recent Dieulafoy lesion in the stomach with gastric ulcer as well, on Protonix; histor y of pulmonary embolus, not on any anticoagulation due to recurrent gastrointestinal bleed; hypothyro idism; noncompliance with medication; history of substance abuse with cocaine and methamphetamine, be ing positive on current drug screen as well. PROCEDURES DONE DURING HOSPITALIZATION: CT angio chest done showed no evidence of pulmonary emboli. Chest x-ray done was unremarkable. CT brain without contrast done showed area of left occipital lob e CVA when compared to prior CAT scan done on 02/28/2018. Abdominal and pelvic CAT scan done showed right lobe liver mass and right middle lobe pulmonary nodule. Otherwise, no acute findings were seen . Nuclear bleeding scan done showed findings of low level enteric hemorrhage, left upper quadrant, f avored to be within the proximal jejunum. H&H was 6 and 18 on admission and got 2 units of blood tra nsfusion which came up to 7.4 and 22, but dropped down to 6 and 17 again early this morning and recei jayne 2 more units of packed cell transfusion after this. MCV is 98, platelet count 261. BUN and crea tinine of 57 and 2.2. Discharge BUN and creatinine of 48 and 1.26. Total cholesterol 104, LDL 55. CEA levels 2.0, albumin is 2.6. Serum bicarbonate 19 on admission. Urine drug screen was positive f or tricyclics, methamphetamine and cocaine metabolites. Plasma alcohol was less than 10. Acute hepa titis panel is positive for hepatitis C and a reflex quantitative titer was pending. INPATIENT CONSULTS: Dr. Rafi Shay. DISCHARGE PLAN: The patient is being discharged to [facility] for further evaluation of his GI bleed. BRIEF COURSE DURING HOSPITALIZATION: The patient initially got admitted on 05/09/2018 with complaint s of shortness of breath. His hemoglobin was 6 grams. The patient has had recurrent GI bleeds and w as hospitalized here on 2 other occasions this month. In view of recurrent GI bleed, a gastroenterol ogy consultation with Dr. Rafi Shay was requested. He also had multiple imaging studies as [place] above. A bleeding scan was ordered, which revealed likely jejunal bleed. In view of patient's a constantino of bleed, he is being transferred to a higher level of care at [facility] in [place] to approach the jejunal area either by . He received 2 units of packed cells despite which his hem oglobin dropped down to 6 grams this morning. He was given an additional 2 units of packed cells vinny or to transfer to [facility] at present. The patient has history of drug abuse and he is positive fo r cocaine and methamphetamine as well during this admission. He is also known to be noncompliant wit h medications. He likely will need further workup of his liver mass as well. Prior AFP levels were within normal limits during his previous hospitalization here. Please see a [id number] documentati on for the day of discharge. A total of 35 minutes was spent on discharge plan.
--- NOTE | 2018-05-11 18:05 | CON ---
DATE OF CONSULTATION: 05/10/2018 beginning of dictation was cutting out he has developed he continued to have spinning like he was going to pass out. LABORATORY DATA: Labs were reviewed, which included CBC, CMP, urine drug screen, which is significan t for WBC of 11.8, hemoglobin 7.4, hematocrit of 22.0. Sodium 134, BUN of 59, creatinine 1.68 and gl ucose of 141. Urine drug screen was positive for tricyclics, methamphetamines and cocaine. Hepatiti s panel was positive for hepatitis C antibody. IMAGING STUDIES: CT head without contrast was reviewed, which shows hypodensity in the left occipita l region suggestive of acute to subacute ischemic infarct. IMPRESSION: 1. Subacute left occipital infarct. 2. Anemia. 3. Near syncope, due to #2. Mr. Marquis is a pleasant 62-year-old -[place] male who presented with the episodes of syncope and generalized weakness. He is found to be anemic. This is likely source for his ongoing s ymptoms. He did have a CT head without contrast that did show acute to subacute left occipital infar ct. However, this is unlikely due to cause for his symptoms that made him come to the hospital. His stroke is likely secondary to hypercoagulable state. At this time, I recommend continuing on Xarelt o for secondary stroke prevention. He does have anemia secondary to his GI bleed for which I would r ecommend discussing with the GI to see if able to continue Xarelto and if not, then when they are constantino dy to restart him on anticoagulation therapy. I would restart for secondary stroke prevention, then consult PT, OT and speech therapy. No further neurological workup needed from my standpoint.
[2018-05-13 11:20] LABS: HCV log10 6.585 (.); Hep C PCR-Quant 3850000 IU/mL (.)
== END 2018-05-10 12:48 | disposition short-term general hospital (02) | DRG 812 ==
LOC: ERS 18:04 → 2NO 22:20 → 2SE 05-09 10:40
PROVIDERS: ADMIT Internal Medicine; ATTEND Internal Medicine
PROC: 30233N1 Transfusion of Nonautologous Red Blood Cells into Peripheral Vein, Percutaneous Approach (ICD-10-PCS; principal; 2018-05-10)
DX: D62 Acute posthemorrhagic anemia (principal); K92.1 Melena; C18.9 Malignant neoplasm of colon, unspecified; N17.9 Acute kidney failure, unspecified; F14.10 Cocaine abuse, uncomplicated; F15.10 Other stimulant abuse, uncomplicated; E03.9 Hypothyroidism, unspecified; E78.5 Hyperlipidemia, unspecified; B19.20 Unspecified viral hepatitis C without hepatic coma; I12.9 Hypertensive chronic kidney disease with stage 1 through stage 4 chronic kidney disease, or unspecified chronic kidney disease; E11.22 Type 2 diabetes mellitus with diabetic chronic kidney disease; N18.9 Chronic kidney disease, unspecified
CPT/HCPCS: 36415; 36416; 36430; 70450; 71045; 71275; 74177; 78278; 80053; 80061; 80074; 80306; 80307; 82274; 82378; 82550; 82553; 83880; 84100; 84484; 85025; 86850; 86900; 86901; 87522; 93005; 96374; A4216; A9604; C9113; G8978-GP-CI; G8979-GP-CI; G8980-GP-CI; G8987-GO-CJ; G8988-GO-CI; G8996-GN-CI; G8997-GN-CH; P9016; S0028

== ENCOUNTER 2018-05-30 13:23 | Inpatient (IN) | payer OTHER ==
[2018-05-30] MEDS ORDERED: Fentanyl 100 MCG/2 ML VIAL ONE (13:32)
[2018-05-30] MEDS ORDERED: Adacel (T-DAP) 0.5 ML VIAL ONE (13:37)
[2018-05-30] MEDS ORDERED: CEFAZOLIN 1 GM VIAL ONE ×2 (13:37→14:20)
[2018-05-30 14:51] LABS: ALT (SGPT) 31 U/L (8-55); AST (SGOT) 87 U/L (5-34); Albumin 3.1 g/dL (3.4-4.8); Alkaline Phosphatase 111 U/L (40-150); Anion Gap 14 mmol/L (10-20); BUN (Urea Nitrogen) 19 mg/dL (8.4-25.7); Bilirubin, Total 0.4 mg/dL (0.2-1.2); CK (CPK) 1039 U/L (30-200); Calc. Creatinine Clearance 0 mL/min (70-130); Calcium 8.8 mg/dL (7.8-10.44); Carbon Dioxide 23 mmol/L (23-31); Chloride 104 mmol/L (98-107); Estimated GFR-MDRD 59; Globulin 4.3 g/dL (2.4-3.5); Glucose 303 mg/dL (80-115); Lipase 217 U/L (8-78); Potassium 4.9 mmol/L (3.5-5.1); Protein, Total 7.4 g/dL (5.8-8.1); Sodium 136 mmol/L (136-145)
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
[2018-05-30 14:52] LABS: Troponin I Less than 0.010 ng/mL (< 0.028)
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
[2018-05-30] MEDS ORDERED: fentaNYL Citrate/PF 2,000 MCG in Sodium Chloride 0.9% 60 ML IV SCH (14:55)
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
[2018-05-30 15:06] LABS: Anisocytosis SLIGHT = 6-15 cells (100X) (0-5/hpf); Band 46 % (5-11); Hemoglobin 9.4 g/dL (14.0-18.0); Lymphocytes 2 % (21-51); MDiff Complete? YES; Mean Corpuscular HGB CONC 32.1 g/dL (32.0-36.0); Mean Corpuscular Hemoglobin 31.5 pg (27.0-31.0); Mean Corpuscular Volume 98.3 fL (78.0-98.0); Mean Platelet Volume 7.2 fL (7.4-10.4); Monocytes 3 % (0-10); Neutrophil 49 % (42-75); PLT Morphology Comment Appears Increased; Platelet Count 417 thou/uL (130-400); RBC Distribution Width 14.6 % (11.5-14.5); Red Blood Cell (RBC) Count 2.99 mill/uL (4.70-6.10); White Blood Cell (WBC) Count 23.2 thou/uL (4.8-10.8)
[2018-05-30 15:07] LABS: Actual Bicarbonate (HCO3a) 23.9 mEq/L (22-28); Analyzer IN Cardio ER; Base Excess (BEa) -0.6 mEq/L (-2.0 to +3.0); CO2 Tension 38.3 mmHg (35.0-45.0); Calcium, Ionized 1.07 mmol/L (1.12-1.30); Carboxyhemoglobin (COHb) 1.1 gm% (0.0-3.0); Hemoglobin (Hb) 7.3 g/dL (14.0-18.0); O2 Tension (PaO2) 368.1 mmHg (> 80.0); Potassium - ABG Lab 4.11 mmol/L (3.70-5.30); pH, Arterial 7.41 (7.35-7.45)
[2018-05-30 15:08] LABS: ALV-art Gradient 297.025 (0-20); Puncture Site LBA
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
[2018-05-30 15:38] LABS: Bilirubin Negative (Negative); Blood, Urine Small (Negative); Clarity CLEAR (Clear); Glucose, Urine (Dipstick) 250 mg/dL (Negative); Leukocyte Negative (Negative); Nitrite Negative (Negative); Protein, Urine (Dipstick) 100 mg/dL (Neg-Trace); Specific Gravity, Urine 1.017 (1.002-1.036); Urobilinogen 0.2 mg/dL (0.2-1.0); pH, Urine 5.5 (5.0-9.0)
[2018-05-30 15:40] LABS: Bacteria/HPF None Seen HPF (None Seen); Pathc Cast-AUWi Flag 2.03 (0-2.49); Squamous Epithelial 0-3 HPF (0-3); WBC/HPF 0-3 HPF (0-3)
[2018-05-30 15:47] LABS: Amphetamine Not Detected (NotDetected); Benzodiazepine Screen Not Detected (NotDetected); Cocaine Metabolite Screen Not Detected (NotDetected); Medtox Reader # READER 4; Methamphetamine Not Detected (NotDetected); Opiate Screen Not Detected (NotDetected); Phencyclidine (PCP) Not Detected (NotDetected); THC/Cannabinoid Screen Not Detected (NotDetected)
[2018-05-30 15:48] LABS: Barbiturates Screen Not Detected (NotDetected); Medtox Control Line Valid? VALID (VALID); Methadone Not Detected (NotDetected); Oxycodone Screen Not Detected (NotDetected); Tricyclic Screen Detected (NotDetected)
[2018-05-30 15:50] LABS: CKMB 15.4 ng/mL (0-6.6)
[2018-05-30 15:52] LABS: Hyaline Casts/LPF NONE SEEN LPF (0-3 Hyaline); RBC/HPF 0-3 HPF (0-3); Renal Epithelial None Seen HPF (0-3); Transitional Epithelial NONE SEEN HPF (0-3)
[2018-05-30 15:53] LABS: PTT 25.5 SEC (22.9-36.1); Prothrombin Time 12.8 SEC (12.0-14.7)
[2018-05-30] MEDS ORDERED: Hydrocortisone Sod Succ/PF 100 mg/2 ml Vial ONE (16:11)
[2018-05-30] MEDS ORDERED: HUM PROTHROMBIN CPLX IV SCH (16:15)
[2018-05-30] MEDS ORDERED: [UNRECOGNIZED DRUG - OTHER] IV SCH (16:15)
[2018-05-30] MEDS ORDERED: HUMAN PROTHROMBIN COMPLX IV SCH (16:15)
--- NOTE | 2018-05-30 16:19 | RAD ---
RADIOGRAPH CHEST 1 VIEW: Date: 05/30/18 Time: 1335 hours HISTORY: 62-year-old male status post intubation. COMPARISON: 05/30/18 at 1235 hours. FINDINGS: There is a new endotracheal tube with distal tip 4.5 cm superior to the gladys. Lungs are hypoinflate d. Mild haziness of the right lung diffusely, new since prior study. No gross opacification of left l ernst visualized. Lateral costophrenic angles are not effaced. NG tube has been placed, curled in the l eft upper quadrant of the abdomen, presumably in the fundus of the stomach. No pneumothorax identifie d. IMPRESSION: 1. Status post intubation with endotracheal tube and nasogastric tube. 2. Interval development of mild haziness of the right lung. HA [] POS: [facility]
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
[2018-05-30] MEDS ORDERED: Calcium Chloride 1 GM/10 ML Abboject SYRINGE ONE (16:32)
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
[2018-05-30] MEDS ORDERED: Lidocaine 1% w/Epinephrine 1:100K 20 ML VIAL ONE (18:24)
[2018-05-30] MEDS ORDERED: Dextrose 50% Abboject 50 ML SYRINGE SLOW IVP PRN ×2 (18:47)
[2018-05-30] MEDS ORDERED: Ondansetron ODT 4 MG TAB PO PRN (18:47)
[2018-05-30] MEDS ORDERED: Ondansetron PF 4 MG/2 ML Vial IVP PRN (18:47)
[2018-05-30] MEDS ORDERED: Dextrose 5% in Water 1,000 ML IV PRN (18:47)
[2018-05-30] MEDS ORDERED: Propofol BOLUS 1,000 MG/100 ML VIAL IV PRN (19:20)
[2018-05-30] MEDS ORDERED: DISCONTINUE PREVIOUS NARCOTIC PAIN MEDICATIONS AND BENZODIAZEPINES FS SCH (19:20)
[2018-05-30] MEDS ORDERED: Fentanyl BOLUS 250 ML IVPB PRN (19:20)
--- NOTE | 2018-05-30 19:45 | RAD ---
LEFT FOOT TWO VIEWS: 05/30/18 HISTORY: Foot injury. There is soft tissue injury on the dorsum of the foot. Medial malleolar and distal fibular fractures are present. There are arthritic changes of the foot. No additional fracture seen. IMPRESSION: Medial malleolar and distal fibular fractures. POS: [facility]
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
[2018-05-30 19:59] LABS: Hemoglobin 10.1 g/dL (14.0-18.0)
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
--- NOTE | 2018-05-30 20:42 | RAD ---
PORTABLE CHEST: 05/30/18 HISTORY: Chest tube placement. Comparison exam done at 1628 hours. Endotracheal and NG tubes are unchanged in position. There has now been placement of a right chest tu be. The right pneumothorax appears to have resolved. IMPRESSION: Placement of right chest tube. Tube overlies the right hilar region. There has been definite improvem ent to the right sided pneumothorax. No longer definitely visualized. POS: [facility]
[2018-05-30] MEDS: Bacitracin Zinc Ointment 30 gm TUBE TOP SCH (21:46)
[2018-05-30] MEDS: Sodium Chloride 0.9% 1,000 ML IV SCH ×2 (21:50→22:35)
[2018-05-30] MEDS: Famotidine/PF 20 mg/2ml Vial SLOW IVP SCH (22:01)
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
[2018-05-30] MEDS ORDERED: Sodium Chloride 0.9% 500 ML IV SCH (22:15)
[2018-05-30] MEDS: Insulin Regular 300 UNITS/3 ML VIAL SC PRN (22:42)
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
[2018-05-31] MEDS ORDERED: Sodium Chloride 0.9% 500 ML IV SCH (00:30)
[2018-05-31] MEDS ORDERED: Calcium Chloride 13.6 MEQ in Sodium Chloride 0.9% 100 ML IVPB SCH (00:30)
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
[2018-05-31] MEDS: fentaNYL Citrate/PF 2,000 MCG in Sodium Chloride 0.9% 60 ML IV SCH (05:02)
[2018-05-31] MEDS: Sodium Chloride 0.9% 1,000 ML IV SCH ×3 (05:21→13:33)
[2018-05-31] MEDS: Insulin Regular 300 UNITS/3 ML VIAL SC PRN ×4 (06:39→22:23)
--- NOTE | 2018-05-31 07:38 | CT ---
CT OF THE BRAIN WITHOUT CONTRAST: Date: 05/31/18 INDICATION: Follow-up subarachnoid hemorrhage and subdural hematoma. COMPARISON: Prior CT of the brain dated 05/30/18 at 1354 hours and a prior study performed 1820 hours. FINDINGS: The subarachnoid hemorrhage involving the left lateral temporal convexity is largely stable. The subd ural hematoma overlying the left temporo-occipital convexity has decreased in density. Small residual subdural hematoma of intermediate density remains with its maximal dimension seen over the left late ral temporal lobe of 4.5 mm. This is stable to the prior exam. No midline shift is present. The left occipital lobe encephalomalacia is stable. The small subdural hemorrhage overlying the anterior right temporal lobe is stable in size. A small amount of pneumocephalus within the right anterior temporal subdural hematoma is no longer seen. No midline shift or hydrocephalus is present. The basilar ciste rns remain patent. Hemorrhage within the right maxillary sinus is again noted. Hemorrhage within the sphenoid sinus is noted. The comminuted right zygomatic arch, right maxillary sinus, ethmoid air cell , and sphenoid bone fracture appear similar. The right parietal scalp contusion is slightly more prom inent. IMPRESSION: 1. Largely stable size of the subdural hematomas overlying the anterior right temporal lobe and left temporoparietal convexity. The density of the subdural hematoma overlying the left temporo-occipital convexity has decreased. The volume of subdural hemorrhage is stable. 2. Subarachnoid hemorrhage involving the left lateral temporoparietal region is largely stable. 3. Stable encephalomalacia of the left occipital lobe. 4. Stable anterior skull base fracture with hemorrhage in the right maxillary sinus and right spheno id sinus. Stable right-sided facial fractures of the zygomatic arch, right maxillary sinus, right sph enoid sinus, and ethmoid air cells. POS: [facility]
[2018-05-31 07:48] LABS: Actual Bicarbonate (HCO3a) 20.7 mEq/L (22-28); Base Excess (BEa) -5.7 mEq/L (-2.0 to +3.0); CO2 Tension 44.7 mmHg (35.0-45.0); Calcium, Ionized 1.15 mmol/L (1.12-1.30); Carboxyhemoglobin (COHb) 2.1 gm% (0.0-3.0); Hemoglobin (Hb) 9.4 g/dL (14.0-18.0); O2 Tension (PaO2) 73.2 mmHg (> 80.0); Potassium - ABG Lab 7.04 mmol/L (3.70-5.30); pH, Arterial 7.28 (7.35-7.45)
[2018-05-31 07:53] LABS: ALV-art Gradient 156.125 (0-20); Puncture Site LR
[2018-05-31] MEDS ORDERED: Vecuronium 10 MG VIAL IVP SCH (08:00)
[2018-05-31] MEDS: Famotidine/PF 20 mg/2ml Vial SLOW IVP SCH ×2 (08:46→22:18)
[2018-05-31 08:56] LABS: Prothrombin Time 13.3 SEC (12.0-14.7)
[2018-05-31 09:00] LABS: #Eosinphils 0.1 thou/uL (0.0-0.7); #Lymphocytes 1.4 thou/uL (1.20-3.40); #Monocytes 1.1 thou/uL (0.11-0.59); #Neutrophils 11.8 thou/uL (1.40-6.50); %Basophils 0.1 % (0.0-1.0); %Eosinophils 0.4 % (0.0-10.0); %Lymphocytes 9.9 % (21.0-51.0); %Monocytes 7.5 % (0.0-10.0); %Neutrophils 82.1 % (42.0-75.0); Hemoglobin 10.5 g/dL (14.0-18.0); Mean Corpuscular HGB CONC 32.6 g/dL (32.0-36.0); Mean Corpuscular Hemoglobin 30.6 pg (27.0-31.0); Mean Corpuscular Volume 93.7 fL (78.0-98.0); Mean Platelet Volume 7.5 fL (7.4-10.4); Platelet Count 246 thou/uL (130-400); RBC Distribution Width 14.6 % (11.5-14.5); Red Blood Cell (RBC) Count 3.43 mill/uL (4.70-6.10); White Blood Cell (WBC) Count 14.4 thou/uL (4.8-10.8)
[2018-05-31] MEDS ORDERED: Prevnar 13-Val Conj/PF 0.5 ML SYRINGE IM ONE (09:00)
[2018-05-31] MEDS ORDERED: Calcium Chloride 1 GM/10 ML Abboject SYRINGE IVP SCH (09:30)
[2018-05-31] MEDS ORDERED: Dextrose 50% Abboject 50 ML SYRINGE ONE (09:30)
[2018-05-31] MEDS ORDERED: Insulin Regular 300 UNITS/3 ML VIAL ONE (09:31)
[2018-05-31 09:40] LABS: ALT (SGPT) 28 U/L (8-55); AST (SGOT) 77 U/L (5-34); Albumin 3.1 g/dL (3.4-4.8); Alkaline Phosphatase 73 U/L (40-150); Anion Gap 15 mmol/L (10-20); BUN (Urea Nitrogen) 28 mg/dL (8.4-25.7); Bilirubin, Total 0.5 mg/dL (0.2-1.2); Calc. Creatinine Clearance 59 mL/min (70-130); Calcium 8.4 mg/dL (7.8-10.44); Carbon Dioxide 18 mmol/L (23-31); Chloride 111 mmol/L (98-107); Estimated GFR-MDRD 42; Globulin 3.3 g/dL (2.4-3.5); Glucose 331 mg/dL (80-115); Protein, Total 6.4 g/dL (5.8-8.1); Sodium 137 mmol/L (136-145)
[2018-05-31] MEDS ORDERED: Insulin Regular 300 UNITS/3 ML VIAL IVP SCH (09:45)
[2018-05-31] MEDS ORDERED: Dextrose 50% Abboject 50 ML SYRINGE SLOW IVP SCH (09:45)
[2018-05-31 09:48] LABS: Potassium 7.3 mmol/L (3.5-5.1)
[2018-05-31] MEDS: Sodium Bicarbonate 150 MEQ in Dextrose 5% in Water 1,000 ML IV SCH ×2 (10:00→19:29)
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
[2018-05-31] MEDS: Lorazepam 2 MG/ML VIAL SLOW IVP PRN (12:00)
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
[2018-05-31] MEDS: Bacitracin Zinc Ointment 30 gm TUBE TOP SCH (13:30)
[2018-05-31 13:35] LABS: Anion Gap 12 mmol/L (10-20); BUN (Urea Nitrogen) 30 mg/dL (8.4-25.7); Calc. Creatinine Clearance 57 mL/min (70-130); Calcium 8.7 mg/dL (7.8-10.44); Carbon Dioxide 20 mmol/L (23-31); Chloride 111 mmol/L (98-107); Estimated GFR-MDRD 41; Glucose 264 mg/dL (80-115); Magnesium 1.9 mg/dL (1.6-2.6); Phosphorus 4.3 mg/dL (2.3-4.7); Potassium 6.2 mmol/L (3.5-5.1); Sodium 137 mmol/L (136-145)
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
[2018-05-31] MEDS ORDERED: Lidocaine 1% w/Epinephrine 1:100K 20 ML VIAL ONE (17:16)
[2018-05-31 18:18] LABS: Hemoglobin 8.7 g/dL (14.0-18.0)
[2018-05-31 18:34] LABS: Potassium 4.9 mmol/L (3.5-5.1)
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
[2018-05-31] MEDS: Senokot S 8.6-50 MG TAB PO SCH (22:18)
[2018-05-31] MEDS: Bacitracin-Polymyxin B Opth Oint 3.5 GM TUBE EA EYE SCH (22:18)
[2018-06-01 00:52] LABS: Hemoglobin 8.1 g/dL (14.0-18.0)
[2018-06-01] MEDS: fentaNYL Citrate/PF 2,000 MCG in Sodium Chloride 0.9% 60 ML IV SCH (01:22)
[2018-06-01] MEDS: Sodium Bicarbonate 150 MEQ in Dextrose 5% in Water 1,000 ML IV SCH ×3 (03:16→21:51)
[2018-06-01 06:01] LABS: Anion Gap 7 mmol/L (10-20); BUN (Urea Nitrogen) 27 mg/dL (8.4-25.7); Calc. Creatinine Clearance 68 mL/min (70-130); Calcium 8.5 mg/dL (7.8-10.44); Carbon Dioxide 30 mmol/L (23-31); Chloride 107 mmol/L (98-107); Estimated GFR-MDRD 49; Glucose 252 mg/dL (80-115); Magnesium 1.4 mg/dL (1.6-2.6); Phosphorus 3.2 mg/dL (2.3-4.7); Potassium 4.7 mmol/L (3.5-5.1); Sodium 139 mmol/L (136-145)
[2018-06-01] MEDS: Insulin Regular 300 UNITS/3 ML VIAL SC PRN ×3 (06:52→21:56)
[2018-06-01 07:02] LABS: Hemoglobin 7.9 g/dL (14.0-18.0)
[2018-06-01] MEDS ORDERED: Thrombin 5000 UNITS/5 ML VIAL ONE (07:32)
[2018-06-01] MEDS ORDERED: Bacitracin Zinc Ointment 30 gm TUBE ONE (07:32)
[2018-06-01] MEDS ORDERED: Sodium Chloride 0.9% 10 ML ONE (07:34)
[2018-06-01] MEDS ORDERED: Midazolam HCl 5 mg/5 ml Vial ONE (08:15)
[2018-06-01] MEDS ORDERED: Vecuronium 10 MG VIAL ONE ×2 (08:16→11:12)
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
[2018-06-01] MEDS: Sodium Chloride 0.9% 1,000 ML IV SCH ×2 (10:34→14:32)
[2018-06-01] MEDS: Polyethylene Glycol 3350 17 GM Packet PO SCH (10:35)
[2018-06-01] MEDS: Senokot S 8.6-50 MG TAB PO SCH ×2 (10:35→21:50)
[2018-06-01] MEDS ORDERED: PHENYLEPHRINE-NS 100 MCG/ML 10 ML SYRINGE ONE (11:12)
[2018-06-01] MEDS ORDERED: PROPOFOL 200 MG/20 ML VIAL ONE (11:12)
[2018-06-01] MEDS ORDERED: Magnesium Sulfate 3 GM in Sodium Chloride 0.9% 250 ML 250 ML IVPB SCH (12:30)
[2018-06-01] MEDS: Lorazepam 2 MG/ML VIAL SLOW IVP PRN (14:39)
[2018-06-01] MEDS: Bacitracin Zinc Ointment 30 gm TUBE TOP SCH (14:47)
[2018-06-01] MEDS: Bacitracin-Polymyxin B Opth Oint 3.5 GM TUBE EA EYE SCH ×2 (14:48→21:50)
[2018-06-01] MEDS: Propofol 1,000 MG/100 ML VIAL IV PRN ×2 (14:51→21:59)
[2018-06-01] MEDS: Famotidine/PF 20 mg/2ml Vial SLOW IVP SCH ×2 (14:51→21:50)
[2018-06-01] MEDS: CEFAZOLIN/Water 2 GM/20 ML SYRINGE SLOW IVP SCH (17:16)
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
[2018-06-01 18:17] LABS: Hemoglobin 11.7 g/dL (14.0-18.0); Platelet Count 133 thou/uL (130-400)
--- NOTE | 2018-06-01 19:24 | OP ---
SURGEON: Lopez Blevins M.D. MANAGER LEASING: Reg Rodrigues PA-C OR: 12. WOUND TYPE: Type 1 wound. PREPROCEDURE DIAGNOSES: Three column chance pattern fracture with multilevel DISH with fracture T6-T 7 disk space and into the posterior elements of T7 with deformity. POSTPROCEDURE DIAGNOSES: Three column chance pattern fracture with multilevel DISH with fracture T6- T7 disk space and into the posterior elements of T7 with deformity. PROCEDURE: 1. Treatment of thoracic spine fracture with open reduction and stabilization with T5, T6, T7, T8 bi lateral posterior screw ange fixation. 2. Posterior lateral fusion, T5, T6, T7, T8 local bone autograft tamped same incision and allograft for arthrodesis and bony stabilization. DESCRIPTION OF PROCEDURE: After informed consent was obtained from the patient's family, the patient was brought to OR 12. Proper patient pause and identification was carried out. He was placed under excellent general endotracheal anesthesia and positioned prone on the OR table. All appropriate poi nts were padded. We identified the T5, T6, T7, T8 segments and a linear aakash was made over this negrita on. This area was sterilely cleansed, prepared, and draped. Proper patient pause and the identifica tion was carried out. The wound was then opened with a combination of sharp, monopolar and blunt dis section in the T5, T6, T7, T8 dorsal spines lamina, facet complexes along with the fracture across th e T7 segment bilaterally was identified along with the transverse processes again at T5, T6, T7, T8. Using fluoroscopic and gross visualization, we placed screws into T5, T6, T7, T8 segments and a pedi daniel screw ange fixation. Rods were placed, final tightening occurred with cap screws. We then decort icated the posterolateral regions at T5, T6, T7, T8 bilaterally and local bone autograft and obtained from same incision. Allograft was laid for arthrodesis. Copious irrigation occurred throughout as did maximizing hemostasis. The wound was then closed in anatomic layers following the sprinkling of vancomycin powder and the placement of drain. The patient was then transported intubated to the ICU.
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
[2018-06-01] MEDS: hydrALAZINE 20 MG/ML VIAL SLOW IVP PRN ×2 (20:32→21:01)
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
[2018-06-01] MEDS ORDERED: CEFAZOLIN 2 GM in Sodium Chloride 0.9% 100 ML IVPB SCH (22:00)
[2018-06-02 01:41] LABS: Hemoglobin 11.6 g/dL (14.0-18.0)
[2018-06-02] MEDS: Sodium Chloride 0.9% 1,000 ML IV SCH (04:02)
[2018-06-02] MEDS: fentaNYL Citrate/PF 2,000 MCG in Sodium Chloride 0.9% 60 ML IV SCH (04:04)
[2018-06-02] MEDS: CEFAZOLIN/Water 2 GM/20 ML SYRINGE SLOW IVP SCH ×3 (04:13→16:00)
[2018-06-02] MEDS: Insulin Regular 300 UNITS/3 ML VIAL SC PRN ×4 (06:10→21:31)
[2018-06-02 06:24] LABS: Anion Gap 10 mmol/L (10-20); BUN (Urea Nitrogen) 20 mg/dL (8.4-25.7); Calc. Creatinine Clearance 91 mL/min (70-130); Calcium 8.2 mg/dL (7.8-10.44); Carbon Dioxide 30 mmol/L (23-31); Chloride 105 mmol/L (98-107); Estimated GFR-MDRD 69; Glucose 268 mg/dL (80-115); Magnesium 1.7 mg/dL (1.6-2.6); Phosphorus 2.8 mg/dL (2.3-4.7); Potassium 4.6 mmol/L (3.5-5.1); Sodium 140 mmol/L (136-145)
[2018-06-02] MEDS: Propofol 1,000 MG/100 ML VIAL IV PRN (06:58)
[2018-06-02] MEDS: hydrALAZINE 20 MG/ML VIAL SLOW IVP PRN ×2 (07:15→08:06)
[2018-06-02] MEDS ORDERED: Magnesium 2 GM/50 ML 2 GM in Premix Bag 1 BAG IVPB SCH (07:30)
[2018-06-02] MEDS: Sodium Bicarbonate 150 MEQ in Dextrose 5% in Water 1,000 ML IV SCH (07:45)
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
[2018-06-02] MEDS: Famotidine/PF 20 mg/2ml Vial SLOW IVP SCH (08:36)
[2018-06-02] MEDS: Senokot S 8.6-50 MG TAB PO SCH ×2 (08:37→21:23)
[2018-06-02] MEDS: Polyethylene Glycol 3350 17 GM Packet PO SCH (08:37)
[2018-06-02] MEDS: Sodium Chloride 0.45% 1,000 ML IV SCH ×5 (08:37→23:42)
[2018-06-02] MEDS: Bacitracin-Polymyxin B Opth Oint 3.5 GM TUBE EA EYE SCH ×2 (08:38→21:24)
[2018-06-02] MEDS: Bacitracin Zinc Ointment 30 gm TUBE TOP SCH (08:41)
--- NOTE | 2018-06-02 09:11 | PRG-2 ---
DATE OF SERVICE: 06/02/2018 This is a postoperative recheck. Mr. Marquis is now postoperative day number 1 having undergone multilevel thoracic screw and ange fixa tion for a T6-T7 fracture. The patient remains intubated and on sedation. When on sedation holiday, he moves the bilateral uppe r extremities spontaneously and the bilateral lower extremities to noxious stimulus greater on the le ft than the right according to nursing staff. I have asked him to hold the sedation today and when I attempt to examine him, he does have equal strength in bilateral upper extremities, but minimal move ment in the bilateral lower extremities. Repeat head CT was done today that shows stable subdural he matoma collection as well as stable traumatic subarachnoid in the right parietal region. At this caleb e, it is safe for the patient to undergo low-dose Lovenox for DVT prophylaxis. We will also order an ultrasound of the bilateral lower extremities. I have ordered a clamshell TLSO brace for the patien t to be worn anytime his head of bed is greater than 30 degrees and when out of bed. Certainly, elev ating his head of bed more should help with pulmonary toilet as well as his small head bleeds. I hav e asked nursing to keep a close eye on the patient's neurologic exam, although he did not have any co mpressive epidural hematoma to explain the bilateral lower extremity weakness. We will continue to m onitor him. He will remain on Ancef with his KATHRYN drain. Please call with any changes in the patient' s neurologic status. Otherwise, we will check back on him tomorrow.
[2018-06-02] MEDS ORDERED: Pancrelipase DR 12000 1 CAP FS PRN (10:22)
[2018-06-02] MEDS ORDERED: Sodium Bicarbonate Tab 325 MG TAB PER TUBE PRN (10:22)
[2018-06-02 13:17] LABS: Hemoglobin 11.1 g/dL (14.0-18.0)
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
--- NOTE | 2018-06-02 15:34 | ULT ---
BILATERAL LOWER EXTREMITY VENOUS DOPPLER: Date: 06/02/18 HISTORY: Lower extremity edema. Fractures. Pain. COMPARISON: None. FINDINGS: Real-time Joy scale and color Doppler with spectral analysis of the bilateral lower extremity venous system was performed. Common femoral, femoral, proximal portions of greater saphenous and deep femor al veins, as well as the popliteal and posterior tibial veins are interrogated. The left posterior tibial vein is not well seen. The remainder of the veins have normal flow, augment ation, and compression. Moderate lower extremity edema. IMPRESSION: No deep venous thrombosis. POS: [facility]
[2018-06-02] MEDS: Acetaminophen 500 MG TAB PO SCH ×2 (16:00→21:35)
[2018-06-02 18:56] LABS: Hemoglobin 10.2 g/dL (14.0-18.0)
[2018-06-02] MEDS: Enoxaparin Sodium 30 MG/0.3 ML SYRINGE SC SCH (21:23)
[2018-06-02] MEDS: Famotidine 20 MG TAB PO SCH (21:24)
--- NOTE | 2018-06-02 23:30 | PRG ---
DATE OF SERVICE: 06/02/2018 SUBJECTIVE: The patient underwent a multilevel level stabilization from T5-T8 for his thoracic fract ure. He tolerated that surgery well yesterday. He has been stable since surgery. He is still intub ated. OBJECTIVE: The patient's maximum temperature is 99.7. His vital signs are stable. LABORATORY DATA: His hemoglobin is 11.1. PLAN: The patient has been cleared for orthopedic surgery, which we will schedule for tomorrow. We will plan on intramedullary rodding of the left femoral shaft and open reduction and internal fixatio n using plate and screws for the bimalleolar fracture of the left ankle. The right acetabular fractu re at this point does not require any surgical intervention. Since the overall alignment of the acet abular fracture is good. Surgery scheduled for tomorrow afternoon. I did talk with the patient's fa leonard over the phone whose questions were answered and agreed to the procedure.
[2018-06-03] MEDS: CEFAZOLIN/Water 2 GM/20 ML SYRINGE SLOW IVP SCH ×4 (00:39→23:10)
[2018-06-03 01:16] LABS: Hemoglobin 9.5 g/dL (14.0-18.0)
[2018-06-03] MEDS: Acetaminophen 500 MG TAB PO SCH ×4 (05:43→21:33)
[2018-06-03] MEDS: Sodium Chloride 0.45% 1,000 ML IV SCH ×3 (06:12→19:54)
[2018-06-03] MEDS: Insulin Regular 300 UNITS/3 ML VIAL SC PRN (06:14)
[2018-06-03 06:27] LABS: Hemoglobin 9.6 g/dL (14.0-18.0)
[2018-06-03 07:00] LABS: Anion Gap 8 mmol/L (10-20); BUN (Urea Nitrogen) 21 mg/dL (8.4-25.7); Calc. Creatinine Clearance 108 mL/min (70-130); Calcium 7.9 mg/dL (7.8-10.44); Carbon Dioxide 28 mmol/L (23-31); Chloride 104 mmol/L (98-107); Estimated GFR-MDRD 84; Glucose 213 mg/dL (80-115); Magnesium 2.1 mg/dL (1.6-2.6); Phosphorus 3.4 mg/dL (2.3-4.7); Potassium 4.4 mmol/L (3.5-5.1); Sodium 136 mmol/L (136-145)
[2018-06-03] MEDS ORDERED: Bisacodyl 10 MG SUPP PR SCH (08:30)
[2018-06-03] MEDS: Enoxaparin Sodium 30 MG/0.3 ML SYRINGE SC SCH ×2 (09:03→21:32)
[2018-06-03] MEDS: Bacitracin Zinc Ointment 30 gm TUBE TOP SCH (09:04)
[2018-06-03] MEDS: Bacitracin-Polymyxin B Opth Oint 3.5 GM TUBE EA EYE SCH ×2 (09:04→21:32)
--- NOTE | 2018-06-03 09:44 | EKG ---
Test Reason : PREOP Blood Pressure : / mmHG Vent. Rate : 069 BPM Atrial Rate : 069 BPM P-R Int : 150 ms QRS Dur : 088 ms QT Int : 396 ms P-R-T Axes : 060 061 059 degrees QTc Int : 424 ms Normal sinus rhythm with sinus arrhythmia Normal ECG When compared with ECG of 08-MAY-2018 18:11, No significant change was found Confirmed by CAILIN DYE ([id number]) on 06/03/2018 9:43:57 AM Referred By: DEONNA Confirmed By:CAILIN DYE
[2018-06-03] MEDS ORDERED: Fentanyl 100 MCG/2 ML VIAL ONE ×2 (09:48→11:21)
[2018-06-03] MEDS ORDERED: Midazolam HCl 2 mg/2 ml Vial ONE (09:48)
[2018-06-03] MEDS ORDERED: Ondansetron PF 4 MG/2 ML Vial IVP PRN (10:22)
[2018-06-03] MEDS ORDERED: Phenylephrine HCL 10 MG/ML VIAL ONE (12:09)
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
--- NOTE | 2018-06-03 12:48 | PRG ---
HISTORY OF PRESENT ILLNESS: Mr. Marquis is postoperative day 2 following T5 to T8 posterior stabiliz ation and fusion for correction of deformity and thoracic spine fracture. He has been sedated and is now on dexmedetomidine at low dose and as such it has been difficult to get an exam. He does open h is eyes weekly to voice this morning; however, he does not move his upper extremities for me nor does he move his lower extremities. From a neurosurgical standpoint, I suspect this is simply related to pharmacologic sedation. He is on low dose Lovenox given a recent history of pulmonary embolism and obviously high risk of DVT, recent ultrasound was negative. His drain output has been decreased and as such, we will likely remove this tomorrow. He is getting his orthopedic injuries stabilized today . He has moved his lower extremities postoperatively with withdrawal and I again suspect, he simply needs time. Of note, he has a very nonworrisome C7 transverse process fracture. There is no concern for structural pathology in this regard. He noticed head CTs have been stable despite coming in on Xarelto.
--- NOTE | 2018-06-03 13:55 | RAD ---
LEFT ANKLE RADIOGRAPHS THREE VIEWS: Date: 06-03-18 Provided Clinical History: ORIF FINDINGS: Multiple spot fluoroscopic images of the left ankle demonstrate lateral side plate and screw fixation of distal fibular fracture and partially threaded screws associated with the medial malleolus. Mildl y displaced posterior malleolar fracture is visualized on the lateral view. IMPRESSION: As above. POS: [facility]
[2018-06-03] MEDS: Ascorbic Acid 500 mg Chewable Tablet PO SCH ×2 (14:05→21:32)
[2018-06-03] MEDS: Senokot S 8.6-50 MG TAB PO SCH ×2 (14:05→21:33)
[2018-06-03] MEDS: Polyethylene Glycol 3350 17 GM Packet PO SCH (14:06)
[2018-06-03] MEDS: Famotidine 20 MG TAB PO SCH ×2 (14:06→21:32)
[2018-06-03] MEDS: Gabapentin 300 MG CAP PO SCH ×2 (14:16→21:33)
[2018-06-03] MEDS: Bisacodyl 10 MG SUPP PR SCH (14:17)
[2018-06-03] MEDS: fentaNYL Citrate/PF 2,000 MCG in Sodium Chloride 0.9% 60 ML IV SCH (14:57)
[2018-06-03] MEDS ORDERED: PHENYLEPHRINE-NS 100 MCG/ML 10 ML SYRINGE ONE (16:55)
[2018-06-03] MEDS ORDERED: Atropine Sulfate 1 mg/10 ml Syringe ONE (18:36)
[2018-06-03] MEDS: hydrALAZINE 20 MG/ML VIAL SLOW IVP PRN (18:50)
--- NOTE | 2018-06-03 19:25 | OP ---
DATE OF PROCEDURE: 06/03/2018 PREOPERATIVE DIAGNOSES: 1. Comminuted left femoral shaft fracture. 2. Bimalleolar fracture of the left ankle. POSTOPERATIVE DIAGNOSES: 1. Comminuted left femoral shaft fracture. 2. Bimalleolar fracture of the left ankle. PROCEDURES: 1. Interlocking intramedullary rodding of comminuted proximal shaft fracture of the left femur. 2. Open reduction internal fixation of bimalleolar fracture of the left ankle. SURGEON: Johnny Barrios M.D. ANESTHESIA: General. TECHNIQUE: The patient was transferred from the Intensive Care Unit down to the operating room. He was given preoperative IV antibiotics, placed in supine position on the fracture table. All bony pro minences were well padded. Traction was applied to well-padded left foot and ankle and under fluoros copic visualization after sterilely prepping and draping the left hip and thigh, incision was made in the lateral aspect of the hip proximal to the greater trochanter. A guide pin was placed through th e greater trochanter and was opened up with a reamer. A guidewire was inserted through the greater t rochanter. Additional incision was made 3 inches in length over the comminuted fracture site in orde r to facilitate crossing the fractures with the guide pin and placing it into the distal aspect of th e shaft. It was then sequentially reamed up to 14.5 mm. Appropriate length ange was measured and a S [employer]s Recon nail that was 13 mm in diameter x 400 mm in length was inserted to the appropriate lengt h. The proximal screw was placed and then also an interlocking screw was placed distally. This was all performed under fluoroscopic visualization, which showed adequate reduction and good stability of the fractures. The wounds were then copiously irrigated with antibiotic solution and closed using # 2 Vicryl for the iliotibial band, 0 Vicryl for the fat and subcutaneous tissue and the skin was close d with skin yvonne. The patient was taken out of traction and the left foot and ankle were then julio rilely prepped and draped in the usual fashion. After exsanguination, tourniquet at the proximal adeel f was raised to 250 mmHg. A longitudinal incision was made over the distal fibula. Blunt and sharp dissection was made down to the lateral aspect of the fibula. Periosteal elevation was performed and a Synthes 2.7 locking distal fibular plate was placed after the fracture of the distal fibula was re duced. Initially, a 3.5 cortical screw was inserted and then 2.7 locking screws were placed in the s haft and in the distal aspect of the fibula. This provided excellent reduction of the distal fibula fracture and good position of the ankle joint. A 1.5 cm incision was made in the medial aspect and a gain under fluoroscopic visualization, 2 guide pins were placed up through the medial malleolus, magnus ured, over reamed and two 4.0 cannulated screws were inserted. This provided excellent reduction of the ankle mortise and of the fractures. Both wounds were then copiously irrigated and they were clos ed using 0 Vicryl for the deeper tissue and skin was closed with skin yvonne. Sterile dressing was applied along with a sugar tong splint. Tourniquet was released. The patient was then transferred b [facility] to ICU in stable condition. ESTIMATED BLOOD LOSS: 300 mL COMPLICATIONS: None.
--- NOTE | 2018-06-03 20:20 | CT ---
CT HEAD NONCONTRAST: 06/03/18 HISTORY: Altered mental status. Intracranial hemorrhage. COMPARISON: Earlier 06/02/18. FINDINGS: Areas of contusion involving primarily the posterior aspect of the left temporal lobe are similar in appearance to the prior study. No new areas of hemorrhage. Ventricle are unremarkable. Diffuse cerebr al edema is stable. Mucosal thickening within the ethmoid air cells, right maxillary sinus, sphenoid sinus, and mastoid air cells is stable. IMPRESSION: Stable posttraumatic appearance of the head. POS: [facility]
[2018-06-03] MEDS ORDERED: Labetalol HCl 100 MG/20 ML VIAL ONE (21:08)
[2018-06-03] MEDS: Atorvastatin Calcium 40 MG TAB PO SCH (21:32)
[2018-06-03] MEDS: Sodium Chloride 0.9% 1,000 ML IV SCH (21:55)
[2018-06-04] MEDS: Sodium Chloride 0.45% 1,000 ML IV SCH ×4 (02:15→22:11)
[2018-06-04] MEDS: Acetaminophen 500 MG TAB PO SCH ×4 (03:10→22:19)
[2018-06-04] MEDS: Levothyroxine Sodium 25 MCG TAB PO SCH (05:04)
[2018-06-04 05:45] LABS: #Eosinphils 0.3 thou/uL (0.0-0.7); #Lymphocytes 1.4 thou/uL (1.20-3.40); #Monocytes 1.2 thou/uL (0.11-0.59); #Neutrophils 7.6 thou/uL (1.40-6.50); %Basophils 0.1 % (0.0-1.0); %Eosinophils 2.7 % (0.0-10.0); %Lymphocytes 13.7 % (21.0-51.0); %Monocytes 11.5 % (0.0-10.0); %Neutrophils 72.1 % (42.0-75.0); Mean Corpuscular HGB CONC 33.1 g/dL (32.0-36.0); Mean Corpuscular Hemoglobin 30.9 pg (27.0-31.0); Mean Corpuscular Volume 93.2 fL (78.0-98.0); Mean Platelet Volume 7.6 fL (7.4-10.4); Platelet Count 151 thou/uL (130-400); RBC Distribution Width 13.8 % (11.5-14.5); Red Blood Cell (RBC) Count 2.58 mill/uL (4.70-6.10); White Blood Cell (WBC) Count 10.5 thou/uL (4.8-10.8)
[2018-06-04 05:54] LABS: Anion Gap 8 mmol/L (10-20); BUN (Urea Nitrogen) 23 mg/dL (8.4-25.7); Calc. Creatinine Clearance 147 mL/min (70-130); Calcium 7.7 mg/dL (7.8-10.44); Carbon Dioxide 28 mmol/L (23-31); Chloride 105 mmol/L (98-107); Estimated GFR-MDRD Greater than 90; Glucose 145 mg/dL (80-115); Magnesium 1.9 mg/dL (1.6-2.6); Phosphorus 3.1 mg/dL (2.3-4.7); Sodium 137 mmol/L (136-145)
[2018-06-04] MEDS ORDERED: Magnesium 2 GM/50 ML 2 GM in Premix Bag 1 BAG IVPB SCH (08:30)
[2018-06-04] MEDS: metFORMIN XR 500 MG TAB PO SCH (08:52)
[2018-06-04] MEDS: Polyethylene Glycol 3350 17 GM Packet PO SCH (08:53)
[2018-06-04] MEDS: CEFAZOLIN/Water 2 GM/20 ML SYRINGE SLOW IVP SCH ×2 (08:54→15:18)
[2018-06-04] MEDS: Ascorbic Acid 500 mg Chewable Tablet PO SCH ×2 (08:54→22:16)
[2018-06-04] MEDS: Bisacodyl 10 MG SUPP PR SCH (08:54)
[2018-06-04] MEDS: Senokot S 8.6-50 MG TAB PO SCH ×2 (08:55→22:17)
[2018-06-04] MEDS: Hydrochlorothiazide 25 MG TAB PO SCH (08:55)
[2018-06-04] MEDS: Enoxaparin Sodium 30 MG/0.3 ML SYRINGE SC SCH ×2 (08:55→22:19)
[2018-06-04] MEDS: Gabapentin 300 MG CAP PO SCH ×3 (08:56→22:16)
[2018-06-04] MEDS: Nortriptyline HCl 25 MG CAP PO SCH (08:56)
[2018-06-04] MEDS: Bacitracin Zinc Ointment 30 gm TUBE TOP SCH (09:00)
[2018-06-04] MEDS ORDERED: Enoxaparin Sodium 40 MG/0.4 ML SYRINGE SC SCH (09:00)
[2018-06-04] MEDS ORDERED: Lisinopril 20 MG TAB PO SCH (09:00)
[2018-06-04] MEDS: Bacitracin-Polymyxin B Opth Oint 3.5 GM TUBE EA EYE SCH ×2 (09:01→22:12)
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
[2018-06-04 09:57] LABS: Bilirubin Negative (Negative); Blood, Urine Negative (Negative); Clarity CLEAR (Clear); Glucose, Urine (Dipstick) Negative (Negative); Leukocyte Small (Negative); Nitrite Negative (Negative); Protein, Urine (Dipstick) Negative (Neg-Trace); Specific Gravity, Urine 1.017 (1.002-1.036)
[2018-06-04 09:59] LABS: Bacteria/HPF None Seen HPF (None Seen); Hyaline Casts/LPF 0-3 HYALINE CAST LPF (0-3 Hyaline); Pathc Cast-AUWi Flag 0.72 (0-2.49); Squamous Epithelial 0-3 HPF (0-3); WBC/HPF 0-3 HPF (0-3)
[2018-06-04 10:24] LABS: Crystals/HPF 1+ AMORPH URATES HPF (Negative); RBC/HPF 0-3 HPF (0-3)
--- NOTE | 2018-06-04 11:19 | PRG ---
DATE OF SERVICE: 06/04/2018 SUBJECTIVE: Mr. Marquis is postoperative day 3 from T5-T8 posterior screw ange stabilization and fusi on for treatment of a 3 column highly unstable spinal fracture. He has been sedated for multiple michael gical procedures over the last week, but he does this morning weakly wiggle his toes in the right nii e. Frankly, he does not move his arms or his left leg for me this morning, but again I suspect stron gly this is related to pharmacologic sedation.
[2018-06-04] MEDS: hydrALAZINE 20 MG/ML VIAL SLOW IVP PRN ×2 (12:32→18:39)
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
--- NOTE | 2018-06-04 16:08 | RAD ---
5 VIEWS LEFT FEMUR: Date: 06/04/18 INDICATION: Status post IM rodding of the left femur fracture. COMPARISON: Prior exam dated 05/30/18. FINDINGS: There has been interval placement of an intramedullary ange transfixing a comminuted proximal femoral shaft fracture. Fracture comminution extends into the lesser trochanter. There is slight varus malali gnment at the level of the fracture. There is mild degenerative arthrosis involving the left hip. The instrumentation appears intact. There are distal and proximal interlocking screws in place. IMPRESSION: Interval intramedullary rodding of the comminuted proximal femur fracture. POS: [facility]
[2018-06-04] MEDS: Atorvastatin Calcium 40 MG TAB PO SCH (22:16)
[2018-06-05] MEDS: Sodium Chloride 0.45% 1,000 ML IV SCH ×3 (01:17→15:44)
[2018-06-05] MEDS: CEFAZOLIN/Water 2 GM/20 ML SYRINGE SLOW IVP SCH ×3 (01:17→10:03)
[2018-06-05] MEDS: Levothyroxine Sodium 25 MCG TAB PO SCH (03:19)
[2018-06-05] MEDS: Acetaminophen 500 MG TAB PO SCH ×4 (03:20→21:14)
[2018-06-05 06:30] LABS: #Eosinphils 0.2 thou/uL (0.0-0.7); #Lymphocytes 1.9 thou/uL (1.20-3.40); #Monocytes 1.7 thou/uL (0.11-0.59); %Basophils 0.1 % (0.0-1.0); %Lymphocytes 12.8 % (21.0-51.0); %Monocytes 11.4 % (0.0-10.0); %Neutrophils 74.7 % (42.0-75.0); Hemoglobin 7.4 g/dL (14.0-18.0); Mean Corpuscular Hemoglobin 30.8 pg (27.0-31.0); Mean Corpuscular Volume 93.4 fL (78.0-98.0); Mean Platelet Volume 7.3 fL (7.4-10.4); Platelet Count 194 thou/uL (130-400); RBC Distribution Width 13.7 % (11.5-14.5); Red Blood Cell (RBC) Count 2.39 mill/uL (4.70-6.10); White Blood Cell (WBC) Count 14.7 thou/uL (4.8-10.8)
[2018-06-05 06:51] LABS: Anion Gap 8 mmol/L (10-20); BUN (Urea Nitrogen) 27 mg/dL (8.4-25.7); Calc. Creatinine Clearance 148 mL/min (70-130); Calcium 7.7 mg/dL (7.8-10.44); Carbon Dioxide 27 mmol/L (23-31); Chloride 105 mmol/L (98-107); Estimated GFR-MDRD Greater than 90; Glucose 135 mg/dL (80-115); Magnesium 1.9 mg/dL (1.6-2.6); Phosphorus 3.1 mg/dL (2.3-4.7); Potassium 3.9 mmol/L (3.5-5.1); Sodium 136 mmol/L (136-145)
[2018-06-05] MEDS ORDERED: Magnesium 2 GM/50 ML 2 GM in Premix Bag 1 BAG IVPB SCH (07:00)
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
[2018-06-05] MEDS: Nortriptyline HCl 25 MG CAP PO SCH (10:11)
[2018-06-05] MEDS: Enoxaparin Sodium 30 MG/0.3 ML SYRINGE SC SCH ×2 (10:12→19:48)
[2018-06-05] MEDS: Ascorbic Acid 500 mg Chewable Tablet PO SCH ×2 (10:13→19:47)
[2018-06-05] MEDS: Hydrochlorothiazide 25 MG TAB PO SCH (10:14)
[2018-06-05] MEDS: Lisinopril 20 MG TAB PO SCH (10:14)
[2018-06-05] MEDS: Gabapentin 300 MG CAP PO SCH ×3 (10:15→19:48)
[2018-06-05] MEDS: metFORMIN XR 500 MG TAB PO SCH (10:15)
[2018-06-05] MEDS: Piperacillin/Tazobactam 3.375 GM in Sodium Chloride 0.9% 100 ML IVPB SCH ×3 (10:16→20:10)
[2018-06-05] MEDS: Senokot S 8.6-50 MG TAB PO SCH ×2 (10:16→19:48)
[2018-06-05] MEDS: Polyethylene Glycol 3350 17 GM Packet PO SCH (10:16)
[2018-06-05] MEDS: Bisacodyl 10 MG SUPP PR SCH (10:17)
[2018-06-05] MEDS: Bacitracin-Polymyxin B Opth Oint 3.5 GM TUBE EA EYE SCH ×2 (10:33→20:10)
[2018-06-05] MEDS: Bacitracin Zinc Ointment 30 gm TUBE TOP SCH (10:33)
[2018-06-05] MEDS ORDERED: PROPOFOL 0 ML ONE (10:53)
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
[2018-06-05] MEDS ORDERED: Dextrose 50% Abboject 50 ML SYRINGE SLOW IVP PRN (16:06)
[2018-06-05] MEDS ORDERED: Dextrose 5% in Water 1,000 ML IV PRN (16:06)
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
[2018-06-05] MEDS: Insulin Regular 300 UNITS/3 ML VIAL SC PRN ×2 (18:30→20:26)
[2018-06-05] MEDS: Atorvastatin Calcium 40 MG TAB PO SCH (19:48)
[2018-06-05] MEDS: fentaNYL Citrate/PF 2,000 MCG in Sodium Chloride 0.9% 60 ML IV SCH (21:33)
--- NOTE | 2018-06-05 21:48 | PDOC.EVN ---
Event Note - Event Note Event Note: Evening Rounds: On PS 10/5 tolerating well, low dose fent and precedex. Is having bradycardia at times and I have actually seen this in the room. Appears to have cough and likely vagal, but BP remains elevated. I have suctioned Mr. Marquis, his cultures have not returned further. He has congestion throughout his lungs, trace wheeze noted. Requested 5 mg of albuterol. 0.5 atrovent now and changed duonebs to q 4 hours. His HTN and congestion could also represent pulm edema, UOP is 120/hr per RN. Will repeat cxr in the am, may need to diurese further, however given his recent febrile state and + resp culture, we will monitor this close. I also requested to increase precedex as I feel his bradycardia episodes appear to be when he is distressed. His rhythm is junctional. I have reviewed tele and back to sinus tach now. If this continues to occur we may have to sedate him further to relax and place back on a rate tonight. Further, a CT thorax spine has been ordered, will give low dose benzo only for procedure compliance. AM cxr and labs ordered.
[2018-06-05] MEDS ORDERED: Midazolam HCl 2 mg/2 ml Vial ONE (21:52)
[2018-06-05] MEDS: Midazolam HCl 2 mg/2 ml Vial SLOW IVP SCH (21:58)
[2018-06-05] MEDS ORDERED: Ipratropium Bromide 2.5 ml Neb NEB SCH (22:00)
[2018-06-05] MEDS ORDERED: Albuterol Sulfate 2.5 mg/3 ml Neb NEB SCH (22:00)
[2018-06-05] MEDS ORDERED: Insulin Glargine 10 UNITS in Pre-Filled Syringe 1 EACH SC SCH (22:15)
--- NOTE | 2018-06-05 22:21 | RAD ---
CHEST ONE VIEW: 06/05/18 HISTORY: Chest tube removal. COMPARISON: 06/05/18. FINDINGS: The cardiac silhouette is magnified by projection. Pulmonary vasculature upper limits of normal. Biba silar atelectasis is again demonstrated. There are postoperative changes of the mediastinum. Lines an d tubes appear unchanged in position. No gross pneumothorax on this portable semiupright exam. Cardia c monitor leads overlie the chest. IMPRESSION: Stable postoperative appearance of the chest. POS: [facility]
[2018-06-05 22:31] LABS: CKMB 1.5 ng/mL (0-6.6); Troponin I 0.018 ng/mL (< 0.028)
[2018-06-05] MEDS ORDERED: Propofol 1,000 MG/100 ML VIAL IV ONE (22:37)
[2018-06-05] MEDS ORDERED: Propofol BOLUS 1,000 MG/100 ML VIAL IV PRN (22:40)
[2018-06-05] MEDS ORDERED: Propofol 1,000 MG/100 ML VIAL IV PRN (22:40)
[2018-06-06] MEDS: Insulin Regular 300 UNITS/3 ML VIAL SC PRN ×4 (00:45→22:27)
[2018-06-06] MEDS: Sodium Chloride 0.45% 1,000 ML IV SCH ×2 (00:48→09:37)
[2018-06-06] MEDS: Piperacillin/Tazobactam 3.375 GM in Sodium Chloride 0.9% 100 ML IVPB SCH ×4 (04:11→22:00)
[2018-06-06 05:12] LABS: #Eosinphils 0.2 thou/uL (0.0-0.7); #Lymphocytes 1.9 thou/uL (1.20-3.40); #Monocytes 1.8 thou/uL (0.11-0.59); #Neutrophils 12.3 thou/uL (1.40-6.50); %Basophils 0.2 % (0.0-1.0); %Eosinophils 1.1 % (0.0-10.0); %Lymphocytes 11.6 % (21.0-51.0); %Neutrophils 76.2 % (42.0-75.0); Hemoglobin 8.1 g/dL (14.0-18.0); Mean Corpuscular HGB CONC 32.4 g/dL (32.0-36.0); Mean Corpuscular Hemoglobin 30.1 pg (27.0-31.0); Mean Platelet Volume 7.3 fL (7.4-10.4); Platelet Count 244 thou/uL (130-400); RBC Distribution Width 13.6 % (11.5-14.5); Red Blood Cell (RBC) Count 2.68 mill/uL (4.70-6.10); White Blood Cell (WBC) Count 16.2 thou/uL (4.8-10.8)
[2018-06-06 05:30] LABS: Anion Gap 9 mmol/L (10-20); BUN (Urea Nitrogen) 29 mg/dL (8.4-25.7); Calc. Creatinine Clearance 142 mL/min (70-130); Calcium 7.7 mg/dL (7.8-10.44); Carbon Dioxide 25 mmol/L (23-31); Chloride 104 mmol/L (98-107); Estimated GFR-MDRD Greater than 90; Glucose 237 mg/dL (80-115); Phosphorus 2.5 mg/dL (2.3-4.7); Potassium 3.8 mmol/L (3.5-5.1); Sodium 134 mmol/L (136-145)
[2018-06-06] MEDS: Acetaminophen 650 MG/20.3 ML UDCUP PO SCH ×4 (05:48→21:59)
[2018-06-06] MEDS: Acetaminophen 500 MG TAB PO SCH (05:52)
[2018-06-06] MEDS: Levothyroxine Sodium 25 MCG TAB PO SCH (06:26)
[2018-06-06 08:23] LABS: Actual Bicarbonate (HCO3a) 26.4 mEq/L (22-28); Base Excess (BEa) 2.7 mEq/L (-2.0 to +3.0); CO2 Tension 36.6 mmHg (35.0-45.0); Calcium, Ionized 1.05 mmol/L (1.12-1.30); Carboxyhemoglobin (COHb) 1.9 gm% (0.0-3.0); Hemoglobin (Hb) 8.3 g/dL (14.0-18.0); pH, Arterial 7.48 (7.35-7.45)
[2018-06-06 08:24] LABS: Puncture Site A-LINE
--- NOTE | 2018-06-06 08:38 | RAD ---
PORTABLE AP CHEST XRAY: DATE: 06/06/2018. HISTORY: Respiratory failure. COMPARISON: 06/05/2018. FINDINGS: Endotracheal tube is again noted in lace and unchanged I position. Midline skin clips are present. Postsurgical changes thoracic spine with bipedicular screws and posterior rods transfixing the midtho racic spine are again seen. There are bibasilar pleural and parenchymal lung changes probably related to bilateral pleural effusions and atelectasis. Pneumonia at either lung base could not be excluded based on this examination. Cardiac silhouette is stable in size. Pulmonary vasculature is within n ormal limits. Right subclavian central venous catheter is visualized, but the tip is not well seen o n this examination and is likely obscured due to the overlying spinal hardware. IMPRESSION: Bibasilar pleural and parenchymal lung changes mildly increased from the prior exam. This may be rel ated to worsening volume loss and small bilateral pleural effusions. Superimposed pneumonia at eithe r lung base could not be entirely excluded. POS: [facility]
[2018-06-06] MEDS ORDERED: Pantoprazole 40 MG GRANULES PACKET PER TUBE SCH (09:00)
[2018-06-06] MEDS ORDERED: hydrALAZINE 20 MG/ML VIAL SLOW IVP PRN (09:10)
[2018-06-06 09:32] LABS: Vancomycin, Trough 20.3 ug/mL
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
[2018-06-06] MEDS: Lisinopril 20 MG TAB PO SCH (09:49)
[2018-06-06] MEDS: Ascorbic Acid 500 mg Chewable Tablet PO SCH ×2 (09:56→22:00)
[2018-06-06] MEDS ORDERED: Vancomycin HCl 1.75 GM in Sodium Chloride 0.9% 500 ML IVPB SCH (10:00)
[2018-06-06] MEDS ORDERED: Lidocaine 1% w/Epinephrine 1:100K 20 ML VIAL ONE (10:09)
[2018-06-06] MEDS ORDERED: Vecuronium 10 MG VIAL ONE (10:09)
[2018-06-06] MEDS: Bacitracin Zinc Ointment 30 gm TUBE TOP SCH (10:20)
[2018-06-06] MEDS: Bacitracin-Polymyxin B Opth Oint 3.5 GM TUBE EA EYE SCH ×2 (10:20→22:47)
[2018-06-06] MEDS: Gabapentin 300 MG CAP PO SCH ×3 (10:21→22:00)
[2018-06-06] MEDS: Hydrochlorothiazide 25 MG TAB PO SCH (10:21)
[2018-06-06] MEDS: Enoxaparin Sodium 30 MG/0.3 ML SYRINGE SC SCH ×2 (10:21→22:01)
[2018-06-06] MEDS: Polyethylene Glycol 3350 17 GM Packet PO SCH (10:22)
[2018-06-06] MEDS: Senokot S 8.6-50 MG TAB PO SCH ×2 (10:22→22:00)
[2018-06-06] MEDS: Nortriptyline HCl 25 MG CAP PO SCH (10:22)
[2018-06-06] MEDS: metFORMIN XR 500 MG TAB PO SCH (10:22)
[2018-06-06] MEDS: Propofol 1,000 MG/100 ML VIAL IV PRN ×3 (10:27→21:59)
[2018-06-06] MEDS ORDERED: CEFAZOLIN/Water 2 GM/20 ML SYRINGE SLOW IVP SCH (11:00)
[2018-06-06] MEDS ORDERED: Atropine Sulfate 1 mg/10 ml Syringe IVP SCH (11:00)
[2018-06-06] MEDS ORDERED: Norepinephrine 8 MG/0.9% NS 250 ML ONE (12:04)
[2018-06-06] MEDS ORDERED: Norepinephrine 8 MG/0.9% NS 250 ML IVPB SCH (12:30)
[2018-06-06] MEDS: CEFAZOLIN/Water 2 GM/20 ML SYRINGE SLOW IVP SCH (12:34)
[2018-06-06] MEDS: Bisacodyl 10 MG SUPP PR SCH (12:51)
[2018-06-06] MEDS ORDERED: Hydrocortisone Sod Succ/PF 100 mg/2 ml Vial IVP SCH (13:30)
[2018-06-06] MEDS ORDERED: Calcium Chloride 1 GM/10 ML Abboject SYRINGE IVP SCH (14:30)
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
[2018-06-06] MEDS ORDERED: Dextrose 50% Abboject 50 ML SYRINGE SLOW IVP PRN (15:22)
[2018-06-06] MEDS ORDERED: Dextrose 5% in Water 1,000 ML IV PRN (15:22)
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
[2018-06-06] MEDS: Famotidine 20 MG TAB PO SCH (22:00)
[2018-06-06] MEDS: Atorvastatin Calcium 40 MG TAB PO SCH (22:00)
[2018-06-06] MEDS: Hydrocortisone Sod Succ/PF 100 mg/2 ml Vial IVP SCH (22:01)
[2018-06-06] MEDS: Insulin Glargine 10 UNITS in Pre-Filled Syringe 1 EACH SC SCH (22:26)
[2018-06-07] MEDS: fentaNYL Citrate/PF 2,000 MCG in Sodium Chloride 0.9% 60 ML IV SCH (02:15)
[2018-06-07] MEDS: Hydrocortisone Sod Succ/PF 100 mg/2 ml Vial IVP SCH ×4 (02:43→20:37)
[2018-06-07] MEDS: Piperacillin/Tazobactam 3.375 GM in Sodium Chloride 0.9% 100 ML IVPB SCH ×4 (02:44→20:39)
[2018-06-07] MEDS: Sodium Chloride 0.45% 1,000 ML IV SCH (02:51)
[2018-06-07] MEDS: Acetaminophen 650 MG/20.3 ML UDCUP PO SCH ×4 (04:57→21:04)
[2018-06-07 05:36] LABS: #Basophils 0.1 thou/uL (0.0-0.2); #Eosinphils 0.1 thou/uL (0.0-0.7); #Lymphocytes 0.7 thou/uL (1.20-3.40); #Monocytes 0.6 thou/uL (0.11-0.59); #Neutrophils 10.7 thou/uL (1.40-6.50); %Basophils 0.7 % (0.0-1.0); %Eosinophils 0.4 % (0.0-10.0); %Lymphocytes 5.6 % (21.0-51.0); %Monocytes 5.3 % (0.0-10.0); %Neutrophils 87.9 % (42.0-75.0); Hemoglobin 7.6 g/dL (14.0-18.0); Mean Corpuscular HGB CONC 32.8 g/dL (32.0-36.0); Mean Corpuscular Hemoglobin 30.7 pg (27.0-31.0); Mean Corpuscular Volume 93.4 fL (78.0-98.0); Mean Platelet Volume 7.2 fL (7.4-10.4); Platelet Count 306 thou/uL (130-400); RBC Distribution Width 13.4 % (11.5-14.5); Red Blood Cell (RBC) Count 2.47 mill/uL (4.70-6.10); White Blood Cell (WBC) Count 12.1 thou/uL (4.8-10.8)
[2018-06-07] MEDS: Levothyroxine Sodium 25 MCG TAB PO SCH (05:36)
[2018-06-07] MEDS: Insulin Regular 300 UNITS/3 ML VIAL SC PRN ×4 (05:37→21:05)
[2018-06-07] MEDS: Propofol 1,000 MG/100 ML VIAL IV PRN (05:39)
[2018-06-07 05:48] LABS: Anion Gap 8 mmol/L (10-20); BUN (Urea Nitrogen) 28 mg/dL (8.4-25.7); Calc. Creatinine Clearance 141 mL/min (70-130); Calcium 8.2 mg/dL (7.8-10.44); Carbon Dioxide 27 mmol/L (23-31); Chloride 106 mmol/L (98-107); Estimated GFR-MDRD Greater than 90; Glucose 234 mg/dL (80-115); Magnesium 1.9 mg/dL (1.6-2.6); Phosphorus 3.3 mg/dL (2.3-4.7); Potassium 3.9 mmol/L (3.5-5.1); Sodium 137 mmol/L (136-145)
[2018-06-07] MEDS: hydrALAZINE 20 MG/ML VIAL IM PRN ×2 (08:18→10:05)
[2018-06-07] MEDS: Ascorbic Acid 500 mg Chewable Tablet PO SCH ×2 (08:19→20:39)
[2018-06-07] MEDS: Enoxaparin Sodium 30 MG/0.3 ML SYRINGE SC SCH ×2 (08:19→20:39)
[2018-06-07] MEDS: Bisacodyl 10 MG SUPP PR SCH ×2 (08:19→18:23)
[2018-06-07] MEDS: Famotidine 20 MG TAB PO SCH ×2 (08:20→20:39)
[2018-06-07] MEDS: Gabapentin 300 MG CAP PO SCH ×3 (08:21→20:39)
[2018-06-07] MEDS: Hydrochlorothiazide 25 MG TAB PO SCH (08:21)
[2018-06-07] MEDS: Senokot S 8.6-50 MG TAB PO SCH ×2 (08:24→21:29)
[2018-06-07] MEDS: Lisinopril 20 MG TAB PO SCH (08:24)
[2018-06-07] MEDS: Polyethylene Glycol 3350 17 GM Packet PO SCH (08:25)
--- NOTE | 2018-06-07 08:41 | EKG ---
Test Reason : SUZANNE Blood Pressure : / mmHG Vent. Rate : 100 BPM Atrial Rate : 100 BPM P-R Int : 124 ms QRS Dur : 078 ms QT Int : 354 ms P-R-T Axes : 040 053 061 degrees QTc Int : 456 ms Normal sinus rhythm Normal ECG When compared with ECG of 03-JUN-2018 09:21, T wave amplitude has decreased in Anterior leads Confirmed by CAILIN DYE ([id number]) on 06/07/2018 8:41:18 AM Referred By: OBIE Confirmed By:CAILIN DYE
[2018-06-07] MEDS ORDERED: Magnesium Citrate 300 ML BOT PO SCH (08:45)
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
[2018-06-07] MEDS ORDERED: hydrALAZINE 20 MG/ML VIAL SLOW IVP SCH (11:00)
[2018-06-07] MEDS: Bacitracin Zinc Ointment 30 gm TUBE TOP SCH (12:39)
[2018-06-07] MEDS: Bacitracin-Polymyxin B Opth Oint 3.5 GM TUBE EA EYE SCH ×2 (12:39→21:12)
[2018-06-07] MEDS ORDERED: cloNIDine 0.1 MG TAB PER TUBE SCH ×2 (13:00→19:45)
[2018-06-07 16:02] LABS: CKMB 1.2 ng/mL (0-6.6); Troponin I 0.026 ng/mL (< 0.028)
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
[2018-06-07] MEDS ORDERED: cloNIDine 0.1 MG TAB PO SCH (20:00)
--- NOTE | 2018-06-07 20:24 | RAD ---
ABDOMEN TWO VIEWS: 06/07/18 INDICATION: History of ileus. COMPARISON: CT of the chest, abdomen and pelvis dated 05/30/18. FINDINGS: There is diffuse gaseous distention of small and large bowel suspicious for ileus. There is a tempera ture probe seen within the region of the bladder. There is orthopedic instrumentation seen involving the proximal left femur. There is instrumentation involving the thoracic spine that is partially visu alized. IMPRESSION: Diffuse gaseous distention of loops of colon and small bowel suspicious for ileus. POS: MANUELITO
[2018-06-07] MEDS: Atorvastatin Calcium 40 MG TAB PO SCH (20:37)
[2018-06-07] MEDS: Insulin Glargine 10 UNITS in Pre-Filled Syringe 1 EACH SC SCH (21:07)
[2018-06-07 22:19] LABS: Vancomycin, Trough 10.4 ug/mL
[2018-06-08] MEDS: Hydrocortisone Sod Succ/PF 100 mg/2 ml Vial IVP SCH ×4 (01:15→21:35)
[2018-06-08] MEDS: hydrALAZINE 20 MG/ML VIAL SLOW IVP PRN ×4 (01:15→16:52)
[2018-06-08] MEDS: cloNIDine 0.1 MG TAB PO SCH ×4 (01:16→21:35)
[2018-06-08] MEDS: Insulin Regular 300 UNITS/3 ML VIAL SC PRN ×2 (01:18→04:43)
[2018-06-08] MEDS: Piperacillin/Tazobactam 3.375 GM in Sodium Chloride 0.9% 100 ML IVPB SCH ×4 (03:51→21:37)
[2018-06-08] MEDS: Acetaminophen 650 MG/20.3 ML UDCUP PO SCH ×4 (04:26→21:38)
[2018-06-08 05:01] LABS: #Eosinphils 0.1 thou/uL (0.0-0.7); #Lymphocytes 0.9 thou/uL (1.20-3.40); #Monocytes 1.2 thou/uL (0.11-0.59); #Neutrophils 12.1 thou/uL (1.40-6.50); %Basophils 0.2 % (0.0-1.0); %Eosinophils 0.5 % (0.0-10.0); %Lymphocytes 6.3 % (21.0-51.0); %Monocytes 8.6 % (0.0-10.0); %Neutrophils 84.4 % (42.0-75.0); Hemoglobin 7.7 g/dL (14.0-18.0); Mean Corpuscular HGB CONC 32.8 g/dL (32.0-36.0); Mean Corpuscular Hemoglobin 30.8 pg (27.0-31.0); Mean Platelet Volume 7.1 fL (7.4-10.4); Platelet Count 426 thou/uL (130-400); RBC Distribution Width 13.8 % (11.5-14.5); White Blood Cell (WBC) Count 14.4 thou/uL (4.8-10.8)
[2018-06-08 05:04] LABS: Hemoglobin A1c 5.8 % (4.0-6.0)
[2018-06-08 05:09] LABS: Anion Gap 10 mmol/L (10-20); BUN (Urea Nitrogen) 41 mg/dL (8.4-25.7); Calc. Creatinine Clearance 123 mL/min (70-130); Calcium 8.3 mg/dL (7.8-10.44); Carbon Dioxide 28 mmol/L (23-31); Chloride 107 mmol/L (98-107); Estimated GFR-MDRD 84; Glucose 304 mg/dL (80-115); Magnesium 2.4 mg/dL (1.6-2.6); Phosphorus 2.6 mg/dL (2.3-4.7); Potassium 3.1 mmol/L (3.5-5.1); Sodium 142 mmol/L (136-145)
[2018-06-08] MEDS: Levothyroxine Sodium 25 MCG TAB PO SCH (06:29)
[2018-06-08] MEDS: fentaNYL Citrate/PF 2,000 MCG in Sodium Chloride 0.9% 60 ML IV SCH (06:29)
[2018-06-08] MEDS: Enoxaparin Sodium 30 MG/0.3 ML SYRINGE SC SCH ×2 (07:49→21:36)
[2018-06-08] MEDS: Ascorbic Acid 500 mg Chewable Tablet PO SCH ×2 (07:49→21:36)
[2018-06-08] MEDS: Gabapentin 300 MG CAP PO SCH ×3 (07:50→21:37)
[2018-06-08] MEDS: Famotidine 20 MG TAB PO SCH ×2 (07:50→21:37)
[2018-06-08] MEDS: Hydrochlorothiazide 25 MG TAB PO SCH (07:51)
[2018-06-08] MEDS: Lisinopril 20 MG TAB PO SCH (07:51)
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
[2018-06-08] MEDS: Bacitracin Zinc Ointment 30 gm TUBE TOP SCH (10:09)
[2018-06-08] MEDS: Bisacodyl 10 MG SUPP PR SCH (10:14)
[2018-06-08] MEDS: Polyethylene Glycol 3350 17 GM Packet PO SCH (10:14)
[2018-06-08] MEDS: Senokot S 8.6-50 MG TAB PO SCH ×2 (10:14→21:39)
[2018-06-08] MEDS: Bacitracin-Polymyxin B Opth Oint 3.5 GM TUBE EA EYE SCH ×2 (10:20→21:36)
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
[2018-06-08] MEDS: Atorvastatin Calcium 40 MG TAB PO SCH (21:36)
[2018-06-08] MEDS: Insulin Glargine 10 UNITS in Pre-Filled Syringe 1 EACH SC SCH (21:38)
[2018-06-09] MEDS: cloNIDine 0.1 MG TAB PO SCH ×4 (02:45→20:32)
[2018-06-09] MEDS: Piperacillin/Tazobactam 3.375 GM in Sodium Chloride 0.9% 100 ML IVPB SCH ×4 (02:45→20:35)
[2018-06-09] MEDS: Hydrocortisone Sod Succ/PF 100 mg/2 ml Vial IVP SCH ×4 (02:46→20:32)
[2018-06-09] MEDS: hydrALAZINE 20 MG/ML VIAL SLOW IVP PRN (04:03)
[2018-06-09] MEDS: Acetaminophen 650 MG/20.3 ML UDCUP PO SCH ×4 (05:33→20:58)
[2018-06-09] MEDS: Levothyroxine Sodium 25 MCG TAB PO SCH (05:34)
[2018-06-09 07:27] LABS: Actual Bicarbonate (HCO3a) 26.1 mEq/L (22-28); Base Excess (BEa) 2.3 mEq/L (-2.0 to +3.0); CO2 Tension 37.1 mmHg (35.0-45.0); Calcium, Ionized 1.17 mmol/L (1.12-1.30); Hemoglobin (Hb) 8.1 g/dL (14.0-18.0); O2 Tension (PaO2) 68.9 mmHg (> 80.0); Potassium - ABG Lab 3.31 mmol/L (3.70-5.30); pH, Arterial 7.47 (7.35-7.45)
[2018-06-09 07:30] LABS: Puncture Site LR
[2018-06-09 07:31] LABS: ALV-art Gradient 169.925 (0-20)
[2018-06-09] MEDS: Enoxaparin Sodium 30 MG/0.3 ML SYRINGE SC SCH ×2 (09:28→20:34)
[2018-06-09] MEDS: Ascorbic Acid 500 mg Chewable Tablet PO SCH ×2 (09:28→20:33)
[2018-06-09] MEDS: Gabapentin 300 MG CAP PO SCH ×3 (09:28→20:35)
[2018-06-09] MEDS: Hydrochlorothiazide 25 MG TAB PO SCH (09:28)
[2018-06-09] MEDS: Famotidine 20 MG TAB PO SCH ×2 (09:31→20:34)
[2018-06-09] MEDS: Bacitracin-Polymyxin B Opth Oint 3.5 GM TUBE EA EYE SCH ×2 (09:33→20:34)
[2018-06-09] MEDS: Bacitracin Zinc Ointment 30 gm TUBE TOP SCH (09:34)
[2018-06-09] MEDS: Lisinopril 20 MG TAB PO SCH (09:45)
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
[2018-06-09] MEDS ORDERED: Gentamicin 80 MG/2 ML VIAL ONE (09:59)
[2018-06-09] MEDS ORDERED: CEFAZOLIN/Water 2 GM/20 ML SYRINGE ONE (09:59)
[2018-06-09] MEDS ORDERED: CEFAZOLIN 1 GM VIAL ONE (09:59)
[2018-06-09] MEDS ORDERED: Lidocaine 1% (PF) 30 ML VIAL ONE (09:59)
[2018-06-09 10:09] LABS: #Basophils 0.1 thou/uL (0.0-0.2); #Lymphocytes 1.2 thou/uL (1.20-3.40); #Monocytes 0.9 thou/uL (0.11-0.59); #Neutrophils 14.1 thou/uL (1.40-6.50); %Basophils 0.8 % (0.0-1.0); %Eosinophils 0.3 % (0.0-10.0); %Monocytes 5.5 % (0.0-10.0); %Neutrophils 86.3 % (42.0-75.0); Hemoglobin 8.4 g/dL (14.0-18.0); Mean Corpuscular HGB CONC 32.6 g/dL (32.0-36.0); Mean Corpuscular Volume 94.8 fL (78.0-98.0); Platelet Count 561 thou/uL (130-400); RBC Distribution Width 14.5 % (11.5-14.5); Red Blood Cell (RBC) Count 2.71 mill/uL (4.70-6.10); White Blood Cell (WBC) Count 16.3 thou/uL (4.8-10.8)
[2018-06-09 10:20] LABS: Anion Gap 8 mmol/L (10-20); BUN (Urea Nitrogen) 49 mg/dL (8.4-25.7); Calc. Creatinine Clearance 118 mL/min (70-130); Calcium 8.5 mg/dL (7.8-10.44); Carbon Dioxide 29 mmol/L (23-31); Chloride 108 mmol/L (98-107); Estimated GFR-MDRD 79; Glucose 193 mg/dL (80-115); Magnesium 2.6 mg/dL (1.6-2.6); Phosphorus 2.8 mg/dL (2.3-4.7); Potassium 3.2 mmol/L (3.5-5.1); Sodium 142 mmol/L (136-145)
[2018-06-09] MEDS: Metamucil PACK PER TUBE SCH ×2 (10:30→20:36)
[2018-06-09] MEDS: Insulin Regular 300 UNITS/3 ML VIAL SC PRN ×3 (12:53→20:37)
[2018-06-09] MEDS: Insulin Glargine 20 UNITS in Pre-Filled Syringe 1 EACH SC SCH ×2 (13:02→20:35)
[2018-06-09] MEDS ORDERED: Potassium Phosphate 30 MMOL in Sodium Chloride 0.9% 500 ML IVPB SCH (14:15)
--- NOTE | 2018-06-09 16:52 | RAD ---
CHEST 1 VIEW: Date: 06/09/18 HISTORY: Cardiac device placement. COMPARISON: 06/07/18. FINDINGS: Single lead pacer is in place. No pneumothorax. There are midline skin yvonne. Tracheostomy is in place. There are similar bibasilar opacities and l ayering effusions. IMPRESSION: Uncomplicated placement of a cardiac pacer. POS: TPC
[2018-06-09] MEDS: Atorvastatin Calcium 40 MG TAB PO SCH (20:33)
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
[2018-06-10] MEDS: Insulin Regular 300 UNITS/3 ML VIAL SC PRN ×5 (00:09→21:56)
[2018-06-10] MEDS: Piperacillin/Tazobactam 3.375 GM in Sodium Chloride 0.9% 100 ML IVPB SCH ×2 (02:33→08:02)
[2018-06-10] MEDS: cloNIDine 0.1 MG TAB PO SCH ×4 (02:33→21:34)
[2018-06-10] MEDS: Hydrocortisone Sod Succ/PF 100 mg/2 ml Vial IVP SCH ×4 (02:59→21:34)
[2018-06-10] MEDS: Acetaminophen 650 MG/20.3 ML UDCUP PO SCH ×3 (03:10→20:30)
[2018-06-10] MEDS: Levothyroxine Sodium 25 MCG TAB PO SCH (05:01)
[2018-06-10 05:53] LABS: #Lymphocytes 0.9 thou/uL (1.20-3.40); #Monocytes 0.9 thou/uL (0.11-0.59); #Neutrophils 9.3 thou/uL (1.40-6.50); %Eosinophils 0.4 % (0.0-10.0); %Lymphocytes 7.8 % (21.0-51.0); %Monocytes 7.9 % (0.0-10.0); %Neutrophils 83.9 % (42.0-75.0); Hemoglobin 7.4 g/dL (14.0-18.0); Mean Corpuscular HGB CONC 31.4 g/dL (32.0-36.0); Mean Corpuscular Hemoglobin 30.2 pg (27.0-31.0); Mean Corpuscular Volume 96.2 fL (78.0-98.0); Mean Platelet Volume 7.3 fL (7.4-10.4); Platelet Count 581 thou/uL (130-400); RBC Distribution Width 14.7 % (11.5-14.5); Red Blood Cell (RBC) Count 2.46 mill/uL (4.70-6.10); White Blood Cell (WBC) Count 11.1 thou/uL (4.8-10.8)
[2018-06-10 06:25] LABS: Magnesium 2.4 mg/dL (1.6-2.6); Phosphorus 3.9 mg/dL (2.3-4.7)
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
[2018-06-10] MEDS: Hydrochlorothiazide 25 MG TAB PO SCH (08:01)
[2018-06-10] MEDS: Gabapentin 300 MG CAP PO SCH ×3 (08:01→21:36)
[2018-06-10] MEDS: Famotidine 20 MG TAB PO SCH ×2 (08:01→21:36)
[2018-06-10] MEDS: Ascorbic Acid 500 mg Chewable Tablet PO SCH ×2 (08:01→21:35)
[2018-06-10] MEDS: Lisinopril 20 MG TAB PO SCH (08:01)
[2018-06-10] MEDS: Bacitracin Zinc Ointment 30 gm TUBE TOP SCH (08:02)
[2018-06-10] MEDS: Bacitracin-Polymyxin B Opth Oint 3.5 GM TUBE EA EYE SCH ×2 (08:02→21:35)
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
[2018-06-10] MEDS ORDERED: Fentanyl 100 MCG/2 ML VIAL ONE (11:13)
[2018-06-10] MEDS: cefTRIAXone\\ROCEPHIN 2 GM in Sodium Chloride 0.9% 100 ML IVPB SCH (11:14)
[2018-06-10] MEDS: Midazolam HCl 2 mg/2 ml Vial SLOW IVP SCH (11:20)
[2018-06-10] MEDS: Propofol 1,000 MG/100 ML VIAL IV PRN (11:55)
[2018-06-10] MEDS: Enoxaparin Sodium 30 MG/0.3 ML SYRINGE SC SCH ×2 (11:56→21:36)
[2018-06-10] MEDS: Insulin Glargine 30 UNITS in Pre-Filled Syringe 1 EACH SC SCH ×2 (11:56→21:36)
[2018-06-10] MEDS: Metamucil PACK PER TUBE SCH ×2 (11:58→21:36)
[2018-06-10] MEDS ORDERED: HYDROcodone/Acetaminophen 5/325 mg Tablet PO PRN (16:04)
[2018-06-10] MEDS: HYDROcodone/Acetaminophen 5/325 mg Tablet PO SCH ×2 (17:05→21:35)
[2018-06-10] MEDS: Atorvastatin Calcium 40 MG TAB PO SCH (21:35)
[2018-06-11] MEDS: HYDROcodone/Acetaminophen 5/325 mg Tablet PO SCH ×3 (01:31→09:31)
[2018-06-11] MEDS: cloNIDine 0.1 MG TAB PO SCH ×4 (01:31→20:34)
[2018-06-11] MEDS: Insulin Regular 300 UNITS/3 ML VIAL SC PRN ×4 (01:32→16:54)
[2018-06-11] MEDS: Hydrocortisone Sod Succ/PF 100 mg/2 ml Vial IVP SCH ×4 (01:32→20:29)
[2018-06-11] MEDS: hydrALAZINE 20 MG/ML VIAL SLOW IVP PRN (03:03)
[2018-06-11] MEDS: Levothyroxine Sodium 25 MCG TAB PO SCH (05:21)
[2018-06-11 06:21] LABS: Anion Gap 8 mmol/L (10-20); BUN (Urea Nitrogen) 53 mg/dL (8.4-25.7); Calc. Creatinine Clearance 127 mL/min (70-130); Calcium 8.5 mg/dL (7.8-10.44); Carbon Dioxide 30 mmol/L (23-31); Chloride 112 mmol/L (98-107); Estimated GFR-MDRD 89; Glucose 290 mg/dL (80-115); Magnesium 2.3 mg/dL (1.6-2.6); Phosphorus 2.7 mg/dL (2.3-4.7); Potassium 2.9 mmol/L (3.5-5.1); Sodium 147 mmol/L (136-145)
[2018-06-11 06:22] LABS: Band 2 % (5-11); Hemoglobin 7.7 g/dL (14.0-18.0); Hypochromia SLIGHT = 6-15 cells (100X) (0-5/hpf); Lymphocytes 3 % (21-51); MDiff Complete? YES; Mean Corpuscular Hemoglobin 30.5 pg (27.0-31.0); Mean Corpuscular Volume 95.3 fL (78.0-98.0); Mean Platelet Volume 7.1 fL (7.4-10.4); Monocytes 6 % (0-10); Neutrophil 89 % (42-75); PLT Morphology Comment Appears Increased; Platelet Count 660 thou/uL (130-400); RBC Distribution Width 14.8 % (11.5-14.5); Red Blood Cell (RBC) Count 2.53 mill/uL (4.70-6.10); White Blood Cell (WBC) Count 20.1 thou/uL (4.8-10.8)
[2018-06-11] MEDS ORDERED: Gabapentin 100 MG CAP PO SCH (09:01)
[2018-06-11] MEDS ORDERED: Midazolam HCl 2 mg/2 ml Vial IVP SCH (09:15)
[2018-06-11] MEDS ORDERED: Potassium Phosphate 30 MMOL in Sodium Chloride 0.9% 250 ML 250 ML IVPB SCH (09:15)
[2018-06-11] MEDS: Insulin Glargine 30 UNITS in Pre-Filled Syringe 1 EACH SC SCH ×2 (09:28→20:29)
[2018-06-11] MEDS: Famotidine 20 MG TAB PO SCH ×2 (09:28→20:27)
[2018-06-11] MEDS: Ascorbic Acid 500 mg Chewable Tablet PO SCH ×2 (09:28→20:26)
[2018-06-11] MEDS: Hydrochlorothiazide 25 MG TAB PO SCH (09:28)
[2018-06-11] MEDS: Enoxaparin Sodium 30 MG/0.3 ML SYRINGE SC SCH (09:30)
[2018-06-11] MEDS: cefTRIAXone\\ROCEPHIN 2 GM in Sodium Chloride 0.9% 100 ML IVPB SCH (09:30)
[2018-06-11] MEDS: Gabapentin 300 MG CAP PO SCH (09:30)
[2018-06-11] MEDS: Metamucil PACK PER TUBE SCH ×2 (09:32→20:29)
[2018-06-11] MEDS ORDERED: HYDROcodone/Acetaminophen 5/325 mg Tablet PO PRN ×2 (09:33→09:34)
[2018-06-11] MEDS: Lisinopril 20 MG TAB PO SCH (09:37)
[2018-06-11] MEDS ORDERED: Sodium Chloride 0.9% 10 ML ONE (11:04)
[2018-06-11] MEDS ORDERED: Bacitracin Zinc Ointment 30 gm TUBE ONE (11:04)
[2018-06-11] MEDS ORDERED: Thrombin 5000 UNITS/5 ML VIAL ONE (11:04)
[2018-06-11] MEDS ORDERED: Lidocaine 0.5%/Epinephrine 1:200,000 50 ml Vial ONE (11:04)
--- NOTE | 2018-06-11 11:25 | ULT ---
BILATERAL LOWER EXTREMITY VENOUS DUPLEX EXAM: History: Impaired mobility. History of PE. Leg edema. FINDINGS: This examination was very limited due to patient's mobility and bandaging. Real-time color doppler ev aluation was performed from groin to calf to include at least portions of the common femoral, superfi cial, profunda femoral, saphenous, popliteal and posterior tibial veins. Right popliteal vein could n ot be imaged due to positioning and left mid to distal posterior tibial vein had bandage material. No evidence of DVT was demonstrated. IMPRESSION: Limited examination. No evidence of DVT of either lower extremity. POS: [facility]
[2018-06-11] MEDS ORDERED: Fentanyl 100 MCG/2 ML VIAL ONE (11:30)
[2018-06-11] MEDS ORDERED: Midazolam HCl 2 mg/2 ml Vial ONE (11:30)
[2018-06-11] MEDS ORDERED: levETIRAcetam 1000 MG/100 ML PREMIX BAG ONE (12:03)
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
--- NOTE | 2018-06-11 13:22 | PRG ---
DATE OF SERVICE: 06/11/2018 SUBJECTIVE: Mr. Marquis was found to be less responsive this morning. Head CT demonstrates the inte rval development of a large acute subdural hematoma approximately 16 mm in size in the right convexit y with 15 mm of midline shift. There is also a right temporal contusion that has developed. Neurolo gically, he his right pupil with no movement to noxious stimuli. The only option here is proce ssion to the operating room for an attempted lifesaving purposes. Our trauma team has discussed the emergent nature with the family. We will plan for right-sided craniotomy for subdural hematoma evacu ation.
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
[2018-06-11] MEDS ORDERED: PHENYLEPHRINE-NS 100 MCG/ML 10 ML SYRINGE ONE (13:45)
--- NOTE | 2018-06-11 16:24 | PRG-2 ---
DATE OF SERVICE: 06/11/2018 Mr. Marquis is now postop day #10, having undergone multilevel screw and ange fixation for thoracic fr acture. The patient has some altered mental status and that he has been less responsive to following commands and much more drowsy. He did undergo a REEMA yesterday. On my exam today, he will not follow formal commands and does appear to be drowsier with perhaps some difficulty with breathing. I will order a CT scan of the head emergently as well as a venogram of t he bilateral lower extremities. We will follow up on the results of this. Please call with any ques tions or changes in the patient's neurologic status. The patient was actually seen at 8:00 a.m. rell ferraro
[2018-06-11] MEDS: CEFAZOLIN/Water 2 GM/20 ML SYRINGE SLOW IVP SCH ×2 (16:30→23:51)
[2018-06-11 17:04] LABS: Hemoglobin 9.3 g/dL (14.0-18.0); Platelet Count 523 thou/uL (130-400)
--- NOTE | 2018-06-11 18:56 | OP-2 ---
Reg Rodrigues PA-C, dictating for Dr. Lopez Blevins. SURGEON: Lopez Blevins M.D. ROCK ROOM WORKER: Reg Rodrigues PA-C. PREOPERATIVE DIAGNOSIS: Right subdural hematoma with right temporal contusion. PROCEDURE: Right craniotomy with evacuation of right-sided subdural hematoma and right temporal lobe contusions. SPECIMENS: None. ESTIMATED BLOOD LOSS: 1000 mL. FINDINGS: Right subdural hematoma with right temporal contusion.
[2018-06-11] MEDS: Atorvastatin Calcium 40 MG TAB PO SCH (20:27)
[2018-06-11] MEDS ORDERED: CEFAZOLIN 2 GM in Sodium Chloride 0.9% 100 ML IVPB SCH (22:00)
[2018-06-12] MEDS: cloNIDine 0.1 MG TAB PO SCH ×4 (02:07→20:08)
[2018-06-12] MEDS: hydrALAZINE 20 MG/ML VIAL SLOW IVP PRN ×3 (02:28→20:21)
[2018-06-12 04:50] LABS: #Basophils 0.1 thou/uL (0.0-0.2); #Eosinphils 0.1 thou/uL (0.0-0.7); #Lymphocytes 1.5 thou/uL (1.20-3.40); #Monocytes 2.4 thou/uL (0.11-0.59); %Basophils 0.3 % (0.0-1.0); %Eosinophils 0.2 % (0.0-10.0); %Lymphocytes 6.1 % (21.0-51.0); %Monocytes 9.6 % (0.0-10.0); %Neutrophils 83.8 % (42.0-75.0); Hemoglobin 9.1 g/dL (14.0-18.0); Mean Corpuscular HGB CONC 31.9 g/dL (32.0-36.0); Mean Corpuscular Hemoglobin 29.7 pg (27.0-31.0); Mean Corpuscular Volume 93.1 fL (78.0-98.0); Mean Platelet Volume 7.2 fL (7.4-10.4); Platelet Count 531 thou/uL (130-400); RBC Distribution Width 15.7 % (11.5-14.5); Red Blood Cell (RBC) Count 3.07 mill/uL (4.70-6.10)
[2018-06-12 04:52] LABS: Anion Gap 9 mmol/L (10-20); BUN (Urea Nitrogen) 45 mg/dL (8.4-25.7); Calc. Creatinine Clearance 155 mL/min (70-130); Calcium 8.6 mg/dL (7.8-10.44); Carbon Dioxide 31 mmol/L (23-31); Chloride 119 mmol/L (98-107); Estimated GFR-MDRD Greater than 90; Glucose 92 mg/dL (80-115); Magnesium 2.2 mg/dL (1.6-2.6); Phosphorus 3.1 mg/dL (2.3-4.7); Sodium 156 mmol/L (136-145)
[2018-06-12 04:59] LABS: Potassium 2.9 mmol/L (3.5-5.1)
[2018-06-12] MEDS ORDERED: Potassium Chloride 40 MEQ in Premix Bag 1 BAG IVPB SCH (05:30)
[2018-06-12] MEDS: Levothyroxine Sodium 25 MCG TAB PO SCH (05:39)
--- NOTE | 2018-06-12 06:05 | EKG ---
Test Reason : STAT Blood Pressure : / mmHG Vent. Rate : 086 BPM Atrial Rate : 086 BPM P-R Int : 136 ms QRS Dur : 086 ms QT Int : 366 ms P-R-T Axes : 045 051 060 degrees QTc Int : 437 ms Normal sinus rhythm with sinus arrhythmia Nonspecific T wave abnormality Abnormal ECG When compared with ECG of 05-JUN-2018 21:52, No significant change was found Confirmed by CAILIN DYE ([id number]) on 06/12/2018 6:04:45 AM Referred By: DEONNA Confirmed By:CAILIN DYE
[2018-06-12] MEDS: Ascorbic Acid 500 mg Chewable Tablet PO SCH ×2 (09:36→20:11)
[2018-06-12] MEDS: CEFAZOLIN/Water 2 GM/20 ML SYRINGE SLOW IVP SCH (09:36)
[2018-06-12] MEDS: Famotidine 20 MG TAB PO SCH ×2 (09:37→20:10)
[2018-06-12] MEDS: Hydrocortisone Sod Succ/PF 100 mg/2 ml Vial IVP SCH ×2 (09:37→20:13)
[2018-06-12] MEDS: Metamucil PACK PER TUBE SCH ×2 (09:38→20:17)
[2018-06-12] MEDS: Lisinopril 20 MG TAB PO SCH (09:38)
[2018-06-12] MEDS: Hydrochlorothiazide 25 MG TAB PO SCH (09:53)
[2018-06-12] MEDS: Insulin Glargine 30 UNITS in Pre-Filled Syringe 1 EACH SC SCH ×2 (10:08→20:15)
--- NOTE | 2018-06-12 10:48 | CT ---
HEAD CT WITHOUT CONTRAST: 06/12/2018 HISTORY: Status post craniotomy. Evaluate subdural hematoma. COMPARISON: 06/11/2018 TECHNIQUE: Serial axial CT imaging is obtained at 5 mm intervals, from the vertex through the skull base, withou t contrast. FINDINGS: The 06/11/2018 examination demonstrated extensive intracranial hemorrhage, which included a large rig ht-sided subdural hematoma with associated right to left midline shift, as well as an intraaxial damari scott in the temporal region, on the right. The current study demonstrates extensive new postoperativ e change, which includes a post surgical drain within the scalp, in the right frontal region, multipl e cutaneous yvonne, and craniotomy changes on the right. There is a comminuted fracture involving t he orbital wall, laterally, on the right, and there is a right-sided zygomatic arch fracture. There is a fracture involving the maxilla and the medial wall of the right maxillary sinus, as well as the posterior wall of the right maxillary sinus. There is partial opacification of the frontal sinus on the left. There is partial opacification of t he bilateral sphenoid sinuses and partial opacification of the bilateral mastoid air cells. There is new pneumocephalus noted involving the middle cranial fossa and the anterior cranial fossa b ilaterally. There is small volume subdural hemorrhage posteriorly, in the left occipital region, monika suring up to 5 mm in greatest AP dimension, similar when compared to the 06/11/2018 exam. There is a focal area of hemorrhage within the medial aspect of the middle cranial fossa, on the rig t, measuring 1.6 x 2 cm, which likely represents a combination of residual intraaxial hemorrhage, on the basis of hemorrhagic contusion and focal area of extraaxial hemorrhage. This is less conspicuous than on the 06/11/2018 exam. There is a subdural hematoma on the right, measuring up to approximate ly 1 cm in transverse dimension, when measured at the axial level of the inferior portion of the rig t frontal lobe. This has significantly decreased in size when compared to the preoperative examinati on, at which time subdural hemorrhage on the right measured up to 2 cm in transverse dimension. Ther e is residual right to left midline shift, which measures approximately 7-8 m, improved when compared to the prior study, at which time it measured 1.5 cm. There is evidence of prior occipital lobe inf arction on the left, stable as well. IMPRESSION: 1. Extensive postoperative changes since the prior examination. There is residual bilateral subdura l hematoma, as well as residual hemorrhage in the temporal tip, on the right. These findings are les s conspicuous than on the prior examination. There is extensive new pneumocephalus, and there is con tinued right to left midline shift, which is improved since the prior exam. Close continued followup is advised. 2. Multiple fractures, as detailed above, incompletely assessed on this examination. POS: [facility]
--- NOTE | 2018-06-12 12:19 | PRG ---
DATE OF SERVICE: 06/12/2018 Mr. Marquis is postoperative day 1 from right-sided craniotomy for subdural hematoma evacuation. In reviewing his preoperative CT from yesterday it is overall thrombophilic course and intraoperative fi ndings. I suspect Mr. Marquis developed a cortical venous thrombosis in the right anterior temporal lobe. This likely lead to a venous infarct and hemorrhage with perilesional edema in the right tempo ral lobe evident on CT yesterday. I suspect he must have had a Valsalva maneuver perhaps trying to c lear tracheal secretions or a mucus plug and this dislodged a clot and subsequently ruptured the thro mbosed vein as I found the vein that was quite brisk with its bleeding intraoperatively. I controlle d this. It was in the region of the right anterior temporal vein, but certainly given the totality o f his findings I suspect he essentially had a venous infarct with subsequent rupture of the thrombose d vein and an acute subdural hematoma. His postoperative CT is satisfactory with expected postoperat tiff findings with improvement of his midline shift. Neurologically his right pupil is 4 mm and react tiff to 3 mm. His left is 3 mm and reactive to 2 mm. He does localize in the right upper extremity a nd withdraws in the left lower extremity. He does not move his legs for me this morning. Metabolica lly, he remains quite ill with a sodium of 156 and a potassium of 2.9. He is on Solu-Cortef, perhaps he is having an aldosterone excess. Our trauma colleagues are involved in that regard. We will con tinue him on Levetiracetam and Ancef. I should note his subgaleal drain has had essentially very lit tle output.
[2018-06-12] MEDS ORDERED: CEFAZOLIN 2 GM/50 ML BAG IVPB SCH (16:00)
[2018-06-12] MEDS: Insulin Regular 300 UNITS/3 ML VIAL SC PRN (17:20)
[2018-06-12] MEDS: CEFAZOLIN 2 GM/50 ML-DEXTROSE 50 ML IVPB SCH (17:20)
[2018-06-12] MEDS: Atorvastatin Calcium 40 MG TAB PO SCH (20:10)
[2018-06-13] MEDS: Insulin Regular 300 UNITS/3 ML VIAL SC PRN ×6 (00:12→21:01)
[2018-06-13] MEDS: CEFAZOLIN 2 GM/50 ML-DEXTROSE 50 ML IVPB SCH ×3 (00:13→17:01)
[2018-06-13] MEDS: cloNIDine 0.1 MG TAB PO SCH ×4 (03:13→20:59)
[2018-06-13 04:44] LABS: #Monocytes 2.2 thou/uL (0.11-0.59); #Neutrophils 22.6 thou/uL (1.40-6.50); %Eosinophils 0.1 % (0.0-10.0); %Lymphocytes 3.7 % (21.0-51.0); %Monocytes 8.4 % (0.0-10.0); %Neutrophils 87.7 % (42.0-75.0); Hemoglobin 8.5 g/dL (14.0-18.0); Mean Corpuscular HGB CONC 31.9 g/dL (32.0-36.0); Mean Corpuscular Hemoglobin 30.3 pg (27.0-31.0); Mean Corpuscular Volume 94.8 fL (78.0-98.0); Mean Platelet Volume 7.3 fL (7.4-10.4); Platelet Count 511 thou/uL (130-400); RBC Distribution Width 15.8 % (11.5-14.5); Red Blood Cell (RBC) Count 2.79 mill/uL (4.70-6.10); White Blood Cell (WBC) Count 25.7 thou/uL (4.8-10.8)
[2018-06-13 05:00] LABS: Anion Gap 8 mmol/L (10-20); BUN (Urea Nitrogen) 47 mg/dL (8.4-25.7); Calc. Creatinine Clearance 133 mL/min (70-130); Calcium 8.5 mg/dL (7.8-10.44); Carbon Dioxide 32 mmol/L (23-31); Chloride 117 mmol/L (98-107); Estimated GFR-MDRD Greater than 90; Glucose 267 mg/dL (80-115); Magnesium 2.1 mg/dL (1.6-2.6); Phosphorus 2.7 mg/dL (2.3-4.7); Potassium 3.1 mmol/L (3.5-5.1); Sodium 154 mmol/L (136-145)
[2018-06-13] MEDS: Levothyroxine Sodium 25 MCG TAB PO SCH (05:06)
[2018-06-13] MEDS: Ascorbic Acid 500 mg Chewable Tablet PO SCH ×2 (09:20→20:59)
[2018-06-13] MEDS: Hydrochlorothiazide 25 MG TAB PO SCH (09:21)
[2018-06-13] MEDS: Insulin Glargine 30 UNITS in Pre-Filled Syringe 1 EACH SC SCH ×2 (09:21→20:59)
[2018-06-13] MEDS: Famotidine 20 MG TAB PO SCH ×2 (09:21→20:59)
[2018-06-13] MEDS: Lisinopril 20 MG TAB PO SCH (09:22)
[2018-06-13] MEDS: Metamucil PACK PER TUBE SCH ×2 (09:23→21:00)
[2018-06-13] MEDS ORDERED: Potassium Chloride 40 MEQ in Premix Bag 1 BAG IVPB SCH (09:30)
--- NOTE | 2018-06-13 10:59 | PRG ---
DATE OF SERVICE: 06/13/2018 Mr. Marquis is postoperative day 2 from right-sided craniotomy for subdural hematoma evacuation. Thi s morning on exam he is essentially stable. He has his eyes closed however, today. He localizes in the right upper extremity and withdraws in the left upper extremity. He does not move his lower ext remities, although I suspect this is medication related and not neurologic. His prognosis remains qu ite guarded. We will remove his subgaleal drain. The biggest issue going forward now will be IVC fi lter placement if he is not acceptable at this point to anticoagulate him.
[2018-06-13] MEDS: hydrALAZINE 20 MG/ML VIAL SLOW IVP PRN (12:28)
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
[2018-06-13] MEDS: Atorvastatin Calcium 40 MG TAB PO SCH (20:59)
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
[2018-06-13] MEDS ORDERED: Ciprofloxacin Lactate/D5W 400 mg/200 ml Premix ONE (22:49)
[2018-06-14] MEDS: cloNIDine 0.1 MG TAB PO SCH ×4 (01:15→20:49)
[2018-06-14] MEDS: CEFAZOLIN 2 GM/50 ML-DEXTROSE 50 ML IVPB SCH ×3 (01:15→16:55)
[2018-06-14 04:58] LABS: #Monocytes 1.9 thou/uL (0.11-0.59); #Neutrophils 16.6 thou/uL (1.40-6.50); %Basophils 0.1 % (0.0-1.0); %Eosinophils 0.2 % (0.0-10.0); %Lymphocytes 5.1 % (21.0-51.0); %Monocytes 9.8 % (0.0-10.0); %Neutrophils 84.8 % (42.0-75.0); Hemoglobin 7.9 g/dL (14.0-18.0); Mean Corpuscular HGB CONC 31.1 g/dL (32.0-36.0); Mean Corpuscular Hemoglobin 30.3 pg (27.0-31.0); Mean Corpuscular Volume 97.5 fL (78.0-98.0); Mean Platelet Volume 7.5 fL (7.4-10.4); Platelet Count 496 thou/uL (130-400); RBC Distribution Width 15.9 % (11.5-14.5); Red Blood Cell (RBC) Count 2.61 mill/uL (4.70-6.10); White Blood Cell (WBC) Count 19.6 thou/uL (4.8-10.8)
[2018-06-14] MEDS: Insulin Regular 300 UNITS/3 ML VIAL SC PRN ×4 (05:07→16:57)
[2018-06-14] MEDS: hydrALAZINE 20 MG/ML VIAL SLOW IVP PRN ×2 (05:07→14:19)
[2018-06-14 05:10] LABS: Anion Gap 9 mmol/L (10-20); BUN (Urea Nitrogen) 45 mg/dL (8.4-25.7); Calc. Creatinine Clearance 138 mL/min (70-130); Calcium 8.4 mg/dL (7.8-10.44); Carbon Dioxide 32 mmol/L (23-31); Chloride 117 mmol/L (98-107); Estimated GFR-MDRD Greater than 90; Glucose 258 mg/dL (80-115); Magnesium 2.1 mg/dL (1.6-2.6); Phosphorus 2.5 mg/dL (2.3-4.7); Potassium 3.4 mmol/L (3.5-5.1); Sodium 155 mmol/L (136-145)
--- NOTE | 2018-06-14 07:54 | PRG ---
DATE OF SERVICE: 06/14/2018 SUBJECTIVE: Mr. Marquis on his 15th day of his hospital stay. He is also on the postop day 7 follow ing a subdural evacuation and hemicraniectomy on the right. Wound is well approximated. No drainage that I can discern or erythema. He does localize to pain with the bilateral upper extremities. He does nothing for me in the bilateral lower extremities. He does open his eyes when spoken to. It do es take a fair amount of stimulation to get him to localize, but he does do so. Neurosurgery's plan at this time, he can relax neuro checks to q.4 hours given the timeframe that he has been out and the consistency in his checks. We will continue to follow along.
[2018-06-14] MEDS ORDERED: Iopamidol 370 76% 50 ML VIAL FS ONE (08:05)
[2018-06-14] MEDS ORDERED: Iopamidol 370 76% 100 ML VIAL ONE (08:05)
[2018-06-14] MEDS: Famotidine 20 MG TAB PO SCH ×2 (08:25→20:49)
[2018-06-14] MEDS: Ascorbic Acid 500 mg Chewable Tablet PO SCH ×2 (08:25→20:50)
[2018-06-14] MEDS: Lisinopril 20 MG TAB PO SCH (08:26)
[2018-06-14] MEDS: Hydrochlorothiazide 25 MG TAB PO SCH (08:26)
[2018-06-14] MEDS: Metamucil PACK PER TUBE SCH ×2 (08:27→20:49)
[2018-06-14] MEDS: Levothyroxine Sodium 25 MCG TAB PO SCH (08:27)
[2018-06-14] MEDS ORDERED: Potassium Phosphate 30 MMOL in Sodium Chloride 0.9% 500 ML IVPB SCH (08:30)
[2018-06-14] MEDS ORDERED: Lidocaine 1% (PF) 30 ML VIAL ONE (09:34)
[2018-06-14] MEDS: Insulin Glargine 30 UNITS in Pre-Filled Syringe 1 EACH SC SCH ×2 (10:41→20:49)
--- NOTE | 2018-06-14 10:43 | OP ---
DATE OF PROCEDURE: 06/14/2018 PREOPERATIVE DIAGNOSES: History of pulmonary embolism, status post multisystem trauma with contraind ication to anticoagulation. POSTOPERATIVE DIAGNOSES: History of pulmonary embolism, status post multisystem trauma with contrain dication to anticoagulation. PROCEDURES PERFORMED: 1. Inferior vena cavogram. 2. Inferior vena cava filter placement. TOTAL CONTRAST: 37 mL TOTAL FLUOROSCOPY TIME: 0.5 minutes. PROCEDURE IN DETAIL: The patient was brought to the lab assistant, placed in supine position on the lab assistant table. Appropriate monitoring was placed. Using ultrasound guidance, the right common femoral v ein and surrounding tissue were anesthetized with 1% lidocaine. Percutaneous access to common femora l vein was obtained and the sheath placed over a [employer] guidewire. Multiple hand injected vena cavo gram were performed and I was not able to illuminate the vena cava. A power injector was brought in and a 20 mL power injected run was performed illuminating the vena cava and renal vein orifices. The tip of the filter was localized at the inferior border of L2. Filter was deployed and seated nicely . The sheath was removed and manual pressure held for hemostasis. The patient tolerated the procedu re well and was transferred back to the intensive care unit in stable condition.
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
[2018-06-14] MEDS: levETIRAcetam 500 mg/5 ml Oral Solution PO SCH (20:49)
[2018-06-14] MEDS: Atorvastatin Calcium 40 MG TAB PO SCH (20:50)
[2018-06-15] MEDS: CEFAZOLIN 2 GM/50 ML-DEXTROSE 50 ML IVPB SCH ×4 (00:44→23:59)
[2018-06-15] MEDS: Insulin Regular 300 UNITS/3 ML VIAL SC PRN ×4 (00:50→11:45)
[2018-06-15] MEDS: cloNIDine 0.1 MG TAB PO SCH ×4 (03:31→21:04)
[2018-06-15 04:03] LABS: #Lymphocytes 1.1 thou/uL (1.20-3.40); #Monocytes 1.5 thou/uL (0.11-0.59); #Neutrophils 9.1 thou/uL (1.40-6.50); %Basophils 0.2 % (0.0-1.0); %Eosinophils 0.4 % (0.0-10.0); %Lymphocytes 9.6 % (21.0-51.0); %Monocytes 12.7 % (0.0-10.0); %Neutrophils 77.1 % (42.0-75.0); Hemoglobin 7.4 g/dL (14.0-18.0); Mean Corpuscular HGB CONC 31.5 g/dL (32.0-36.0); Mean Corpuscular Hemoglobin 30.7 pg (27.0-31.0); Mean Corpuscular Volume 97.3 fL (78.0-98.0); Platelet Count 420 thou/uL (130-400); Red Blood Cell (RBC) Count 2.41 mill/uL (4.70-6.10); White Blood Cell (WBC) Count 11.8 thou/uL (4.8-10.8)
[2018-06-15 04:20] LABS: Anion Gap 10 mmol/L (10-20); BUN (Urea Nitrogen) 53 mg/dL (8.4-25.7); Calc. Creatinine Clearance 122 mL/min (70-130); Calcium 8.1 mg/dL (7.8-10.44); Carbon Dioxide 31 mmol/L (23-31); Chloride 117 mmol/L (98-107); Estimated GFR-MDRD 88; Glucose 243 mg/dL (80-115); Magnesium 2.3 mg/dL (1.6-2.6); Phosphorus 2.8 mg/dL (2.3-4.7); Potassium 3.8 mmol/L (3.5-5.1); Sodium 154 mmol/L (136-145)
[2018-06-15] MEDS: Levothyroxine Sodium 25 MCG TAB PO SCH (06:21)
[2018-06-15] MEDS: Hydrochlorothiazide 25 MG TAB PO SCH (09:49)
[2018-06-15] MEDS: Famotidine 20 MG TAB PO SCH ×2 (09:49→21:03)
[2018-06-15] MEDS: Insulin Glargine 30 UNITS in Pre-Filled Syringe 1 EACH SC SCH ×2 (09:51→21:04)
[2018-06-15] MEDS: levETIRAcetam 500 mg/5 ml Oral Solution PO SCH ×2 (09:52→21:03)
[2018-06-15] MEDS: Metamucil PACK PER TUBE SCH ×2 (09:53→21:04)
[2018-06-15] MEDS: Ascorbic Acid 500 mg Chewable Tablet PO SCH ×2 (09:57→21:08)
[2018-06-15] MEDS: Lisinopril 20 MG TAB PO SCH (09:57)
--- NOTE | 2018-06-15 11:04 | PRG ---
DATE OF SERVICE: 06/15/2018 Mr. Marquis's exam this morning is stable to yesterday's. His hemoglobin and hematocrit have continu ed to trend somewhat downward 7.4 and 23.4 respectively today. Sodium is 154, also hypernatremic. W e will need to defer to treatment for this purpose. Of note, his urinary output is 125 an hour . Recommend urine sodium and urine specific gravity. From a neurosurgical standpoint, non-intervent ional at this point.
--- NOTE | 2018-06-15 11:15 | PRG ---
DATE OF SERVICE: 06/15/2018 Mr. Marquis is now hospital day 16, status post both spine and intracranial surgeries. He remains in the ICU with a fairly poor neurologic exam. For the most part, he is unchanged as compared to yeste rday. To stimulation and occasionally to voice, he opens his eyes. He had no movement on the right side for me today with deep stimulation. He does have occasional spontaneous and what would appear t o be significantly purposeful movements that time on the left side. His incisions remain intact. He still has a very poor neurologic exam and a likely grave prognosis.
[2018-06-15] MEDS ORDERED: Ciprofloxacin 500 MG TAB PO SCH (20:15)
[2018-06-15] MEDS: Atorvastatin Calcium 40 MG TAB PO SCH (21:04)
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
[2018-06-16] MEDS: cloNIDine 0.1 MG TAB PO SCH ×4 (02:21→20:09)
[2018-06-16 04:11] LABS: #Eosinphils 0.1 thou/uL (0.0-0.7); #Lymphocytes 1.4 thou/uL (1.20-3.40); #Monocytes 1.3 thou/uL (0.11-0.59); #Neutrophils 11.2 thou/uL (1.40-6.50); %Basophils 0.2 % (0.0-1.0); %Eosinophils 0.7 % (0.0-10.0); %Lymphocytes 9.9 % (21.0-51.0); %Monocytes 9.6 % (0.0-10.0); %Neutrophils 79.7 % (42.0-75.0); Hemoglobin 7.4 g/dL (14.0-18.0); Mean Corpuscular HGB CONC 30.5 g/dL (32.0-36.0); Mean Corpuscular Volume 98.3 fL (78.0-98.0); Mean Platelet Volume 7.8 fL (7.4-10.4); Platelet Count 423 thou/uL (130-400); RBC Distribution Width 15.1 % (11.5-14.5); Red Blood Cell (RBC) Count 2.47 mill/uL (4.70-6.10)
[2018-06-16 04:29] LABS: Anion Gap 8 mmol/L (10-20); BUN (Urea Nitrogen) 48 mg/dL (8.4-25.7); Calc. Creatinine Clearance 149 mL/min (70-130); Calcium 8.3 mg/dL (7.8-10.44); Carbon Dioxide 32 mmol/L (23-31); Chloride 118 mmol/L (98-107); Estimated GFR-MDRD Greater than 90; Glucose 141 mg/dL (80-115); Magnesium 2.1 mg/dL (1.6-2.6); Phosphorus 2.8 mg/dL (2.3-4.7); Potassium 3.3 mmol/L (3.5-5.1); Sodium 155 mmol/L (136-145)
[2018-06-16] MEDS: Levothyroxine Sodium 25 MCG TAB PO SCH (05:39)
[2018-06-16] MEDS: Ciprofloxacin 500 MG TAB PO SCH ×2 (05:39→20:09)
[2018-06-16] MEDS: CEFAZOLIN 2 GM/50 ML-DEXTROSE 50 ML IVPB SCH ×3 (08:09→23:24)
[2018-06-16] MEDS: Hydrochlorothiazide 25 MG TAB PO SCH ×2 (09:39→20:09)
[2018-06-16] MEDS: Famotidine 20 MG TAB PO SCH ×2 (09:39→20:09)
[2018-06-16] MEDS: levETIRAcetam 500 mg/5 ml Oral Solution PO SCH ×2 (09:40→20:10)
[2018-06-16] MEDS: Metamucil PACK PER TUBE SCH ×2 (09:41→20:10)
[2018-06-16] MEDS: Ascorbic Acid 500 mg Chewable Tablet PO SCH ×2 (09:41→20:09)
[2018-06-16] MEDS: Insulin Glargine 30 UNITS in Pre-Filled Syringe 1 EACH SC SCH ×2 (09:42→20:09)
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
[2018-06-16] MEDS: Insulin Regular 300 UNITS/3 ML VIAL SC PRN ×4 (10:13→20:10)
[2018-06-16] MEDS: Lisinopril 20 MG TAB PO SCH (10:16)
[2018-06-16] MEDS: Dextrose 5% in Water 1,000 ML IV SCH ×2 (10:26→21:54)
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
[2018-06-16 15:58] VITALS: BMI 34.5
[2018-06-16] MEDS: hydrALAZINE 20 MG/ML VIAL SLOW IVP PRN (17:56)
[2018-06-16] MEDS: Atorvastatin Calcium 40 MG TAB PO SCH (20:09)
[2018-06-17] MEDS: cloNIDine 0.1 MG TAB PO SCH ×2 (01:33→08:33)
[2018-06-17] MEDS: Insulin Regular 300 UNITS/3 ML VIAL SC PRN ×2 (03:06→20:44)
[2018-06-17] MEDS: Dextrose 5% in Water 1,000 ML IV SCH ×2 (04:21→15:27)
[2018-06-17] MEDS: hydrALAZINE 20 MG/ML VIAL SLOW IVP PRN ×2 (05:08→15:25)
[2018-06-17] MEDS: Ciprofloxacin 500 MG TAB PO SCH ×2 (05:08→20:40)
[2018-06-17] MEDS: Levothyroxine Sodium 25 MCG TAB PO SCH (05:08)
[2018-06-17 05:53] LABS: #Eosinphils 0.2 thou/uL (0.0-0.7); #Lymphocytes 1.2 thou/uL (1.20-3.40); #Monocytes 1.3 thou/uL (0.11-0.59); %Basophils 0.2 % (0.0-1.0); %Eosinophils 1.4 % (0.0-10.0); %Lymphocytes 8.8 % (21.0-51.0); %Monocytes 9.5 % (0.0-10.0); %Neutrophils 80.1 % (42.0-75.0); Mean Corpuscular HGB CONC 30.9 g/dL (32.0-36.0); Mean Corpuscular Hemoglobin 29.4 pg (27.0-31.0); Mean Corpuscular Volume 95.2 fL (78.0-98.0); Mean Platelet Volume 7.7 fL (7.4-10.4); Platelet Count 408 thou/uL (130-400); RBC Distribution Width 15.8 % (11.5-14.5); Red Blood Cell (RBC) Count 3.07 mill/uL (4.70-6.10); White Blood Cell (WBC) Count 13.8 thou/uL (4.8-10.8)
[2018-06-17 06:09] LABS: Anion Gap 6 mmol/L (10-20); BUN (Urea Nitrogen) 40 mg/dL (8.4-25.7); Calc. Creatinine Clearance 159 mL/min (70-130); Calcium 8.1 mg/dL (7.8-10.44); Carbon Dioxide 35 mmol/L (23-31); Chloride 113 mmol/L (98-107); Estimated GFR-MDRD Greater than 90; Glucose 151 mg/dL (80-115); Potassium 3.1 mmol/L (3.5-5.1); Sodium 151 mmol/L (136-145)
[2018-06-17] MEDS ORDERED: Potassium Chloride 20 MEQ in Premix Bag 1 BAG IVPB SCH (06:36)
[2018-06-17] MEDS ORDERED: Potassium Chloride 20 MEQ TAB PER TUBE SCH (06:45)
[2018-06-17] MEDS ORDERED: Potassium Chloride 20 MEQ TAB PO SCH (06:45)
--- NOTE | 2018-06-17 08:30 | PRG ---
DATE OF SERVICE: 06/17/2018 Benitez is postoperative day 6 for a right-sided craniotomy for acute subdural hematoma. He has a GC S of 9G, E3, M5, V1T. He is vacillated back and forth between localizing on the right upper extremit y and localizes in the left upper extremity. Today localizes in the right upper extremity. He has y et to move his legs, although we have extensively scanned his spine pre and postoperatively and I do not suspect this is a structural cranial spinal cause for this, but rather just limited by sedation a s he was slow to move his legs and inconsistent in moving his legs even immediately postoperative of his spine surgery. We will continue to follow. We will remove his yvonne out of his lumbar spine. His wound is healing satisfactorily. We will continue to watch him closely. His prognosis remains poor.
[2018-06-17] MEDS: CEFAZOLIN 2 GM/50 ML-DEXTROSE 50 ML IVPB SCH (08:32)
[2018-06-17] MEDS: Ascorbic Acid 500 mg Chewable Tablet PO SCH ×2 (08:33→20:40)
[2018-06-17] MEDS: Hydrochlorothiazide 25 MG TAB PO SCH ×2 (08:33→20:41)
[2018-06-17] MEDS: Lisinopril 20 MG TAB PO SCH (08:34)
[2018-06-17] MEDS: Metamucil PACK PER TUBE SCH ×2 (08:34→20:39)
[2018-06-17] MEDS: Famotidine 20 MG TAB PO SCH ×2 (08:34→20:40)
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
[2018-06-17] MEDS: levETIRAcetam 500 mg/5 ml Oral Solution PO SCH ×2 (11:44→20:40)
[2018-06-17] MEDS: Insulin Glargine 30 UNITS in Pre-Filled Syringe 1 EACH SC SCH ×2 (12:05→20:41)
[2018-06-17] MEDS: Atorvastatin Calcium 40 MG TAB PO SCH (20:40)
[2018-06-18] MEDS: Dextrose 5% in Water 1,000 ML IV SCH ×3 (00:30→19:26)
[2018-06-18] MEDS: Insulin Regular 300 UNITS/3 ML VIAL SC PRN ×5 (01:41→21:22)
[2018-06-18 04:31] LABS: Anion Gap 8 mmol/L (10-20); BUN (Urea Nitrogen) 37 mg/dL (8.4-25.7); Calc. Creatinine Clearance 163 mL/min (70-130); Calcium 8.8 mg/dL (7.8-10.44); Carbon Dioxide 34 mmol/L (23-31); Chloride 111 mmol/L (98-107); Estimated GFR-MDRD Greater than 90; Glucose 211 mg/dL (80-115); Magnesium 1.9 mg/dL (1.6-2.6); Phosphorus 3.1 mg/dL (2.3-4.7); Potassium 3.3 mmol/L (3.5-5.1); Sodium 150 mmol/L (136-145)
[2018-06-18] MEDS: Levothyroxine Sodium 25 MCG TAB PO SCH (06:12)
[2018-06-18] MEDS: Ciprofloxacin 500 MG TAB PO SCH ×2 (06:12→19:25)
[2018-06-18] MEDS ORDERED: Potassium Chloride 40 MEQ in Premix Bag 1 BAG IVPB SCH (06:15)
[2018-06-18] MEDS ORDERED: Potassium Chloride 30 MEQ in Premix Bag 1 BAG IVPB SCH (06:30)
[2018-06-18] MEDS ORDERED: Potassium Chloride 30 MEQ, Admixture Fee 1 EACH in Sodium Chloride 0.9% 250 ML 250 ML IV SCH (07:15)
[2018-06-18] MEDS: Ascorbic Acid 500 mg Chewable Tablet PO SCH ×2 (09:09→19:58)
[2018-06-18] MEDS: Lisinopril 20 MG TAB PO SCH (09:10)
[2018-06-18] MEDS: Hydrochlorothiazide 25 MG TAB PO SCH ×2 (09:10→19:58)
[2018-06-18] MEDS: Famotidine 20 MG TAB PO SCH ×2 (09:10→19:58)
[2018-06-18] MEDS: Metamucil PACK PER TUBE SCH ×2 (09:11→19:59)
[2018-06-18] MEDS: Insulin Glargine 30 UNITS in Pre-Filled Syringe 1 EACH SC SCH (09:11)
[2018-06-18] MEDS: levETIRAcetam 500 mg/5 ml Oral Solution PO SCH ×2 (09:12→19:59)
[2018-06-18] MEDS: hydrALAZINE 20 MG/ML VIAL SLOW IVP PRN (10:11)
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
[2018-06-18] MEDS: Atorvastatin Calcium 40 MG TAB PO SCH (19:58)
[2018-06-18] MEDS ORDERED: PRE FILLED SC SCH (21:00)
[2018-06-18] MEDS ORDERED: INSULIN GLARGINE SC SCH (21:00)
[2018-06-19] MEDS: Insulin Glargine 20 UNITS in Pre-Filled Syringe 1 EACH SC SCH ×2 (00:04→08:33)
[2018-06-19] MEDS: Insulin Regular 300 UNITS/3 ML VIAL SC PRN ×2 (00:08→03:35)
[2018-06-19] MEDS: Dextrose 5% in Water 1,000 ML IV SCH (04:40)
[2018-06-19 05:10] LABS: Anion Gap 10 mmol/L (10-20); BUN (Urea Nitrogen) 38 mg/dL (8.4-25.7); Calc. Creatinine Clearance 169 mL/min (70-130); Calcium 8.7 mg/dL (7.8-10.44); Carbon Dioxide 32 mmol/L (23-31); Chloride 106 mmol/L (98-107); Estimated GFR-MDRD Greater than 90; Glucose 262 mg/dL (80-115); Magnesium 1.8 mg/dL (1.6-2.6); Phosphorus 3.4 mg/dL (2.3-4.7); Potassium 3.6 mmol/L (3.5-5.1); Sodium 144 mmol/L (136-145)
[2018-06-19] MEDS: Levothyroxine Sodium 25 MCG TAB PO SCH (05:10)
[2018-06-19] MEDS: Ciprofloxacin 500 MG TAB PO SCH (05:10)
[2018-06-19] MEDS: hydrALAZINE 20 MG/ML VIAL SLOW IVP PRN (08:17)
[2018-06-19 08:18] VITALS: BP 181/90
[2018-06-19] MEDS: Lisinopril 20 MG TAB PO SCH (08:30)
[2018-06-19] MEDS: Ascorbic Acid 500 mg Chewable Tablet PO SCH (08:31)
[2018-06-19] MEDS: Hydrochlorothiazide 25 MG TAB PO SCH (08:31)
[2018-06-19] MEDS: Famotidine 20 MG TAB PO SCH (08:31)
[2018-06-19] MEDS: levETIRAcetam 500 mg/5 ml Oral Solution PO SCH (08:33)
[2018-06-19] MEDS: Metamucil PACK PER TUBE SCH (08:34)
[2018-06-19] MEDS ORDERED: Insulin Glargine 25 UNITS in Pre-Filled Syringe 1 EACH SC SCH (09:00)
[2018-06-19] MEDS ORDERED: Potassium Chloride 20 MEQ TAB PO SCH (09:00)
[2018-06-19] MEDS ORDERED: Furosemide 20 MG/2 ML VIAL SLOW IVP SCH (09:00)
[2018-06-19 12:07] VITALS: TEMP 98.5
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
== END 2018-06-19 13:20 | DRG 3 ==
LOC: ERS 13:23 → CCU 15:52
PROVIDERS: ADMIT Specialist; ATTEND Specialist
PROC: 5A1955Z Respiratory Ventilation, Greater than 96 Consecutive Hours (ICD-10-PCS; 2018-05-30)
PROC: 0BH17EZ Insertion of Endotracheal Airway into Trachea, Via Natural or Artificial Opening (ICD-10-PCS; 2018-05-30)
PROC: 08BNXZZ Excision of Right Upper Eyelid, External Approach (ICD-10-PCS; 2018-06-01)
PROC: 0QS904Z Reposition Left Femoral Shaft with Internal Fixation Device, Open Approach (ICD-10-PCS; 2018-06-03)
PROC: 0QSK04Z Reposition Left Fibula with Internal Fixation Device, Open Approach (ICD-10-PCS; 2018-06-03)
PROC: 0PS404Z Reposition Thoracic Vertebra with Internal Fixation Device, Open Approach (ICD-10-PCS; 2018-06-06)
PROC: 0B110F4 Bypass Trachea to Cutaneous with Tracheostomy Device, Open Approach (ICD-10-PCS; principal; 2018-06-11)
PROC: 00C40ZZ Extirpation of Matter from Intracranial Subdural Space, Open Approach (ICD-10-PCS; 2018-06-11)
PROC: 0DH64UZ Insertion of Feeding Device into Stomach, Percutaneous Endoscopic Approach (ICD-10-PCS; 2018-06-11)
PROC: 06H03DZ Insertion of Intraluminal Device into Inferior Vena Cava, Percutaneous Approach (ICD-10-PCS; 2018-06-14)
DX: J96.01 Acute respiratory failure with hypoxia (principal); S06.5X9A Traumatic subdural hemorrhage with loss of consciousness of unspecified duration, initial encounter; S72.302A Unspecified fracture of shaft of left femur, initial encounter for closed fracture; N17.0 Acute kidney failure with tubular necrosis; T79.4XXA Traumatic shock, initial encounter; R53.2 Functional quadriplegia; K25.4 Chronic or unspecified gastric ulcer with hemorrhage; J69.0 Pneumonitis due to inhalation of food and vomit; S22.069A Unspecified fracture of T7-T8 vertebra, initial encounter for closed fracture; S22.32XA Fracture of one rib, left side, initial encounter for closed fracture; S22.31XA Fracture of one rib, right side, initial encounter for closed fracture; D62 Acute posthemorrhagic anemia; J93.9 Pneumothorax, unspecified; E87.1 Hypo-osmolality and hyponatremia; E11.9 Type 2 diabetes mellitus without complications; E03.9 Hypothyroidism, unspecified; E78.5 Hyperlipidemia, unspecified; I10 Essential (primary) hypertension; B19.20 Unspecified viral hepatitis C without hepatic coma; F41.9 Anxiety disorder, unspecified; S82.845A Nondisplaced bimalleolar fracture of left lower leg, initial encounter for closed fracture; S02.2XXA Fracture of nasal bones, initial encounter for closed fracture; S01.01XA Laceration without foreign body of scalp, initial encounter; S01.111A Laceration without foreign body of right eyelid and periocular area, initial encounter; E87.5 Hyperkalemia; E83.42 Hypomagnesemia; E11.65 Type 2 diabetes mellitus with hyperglycemia; E83.39 Other disorders of phosphorus metabolism; R00.1 Bradycardia, unspecified; Z79.84 Long term (current) use of oral hypoglycemic drugs; Z79.01 Long term (current) use of anticoagulants; Z79.899 Other long term (current) drug therapy; I95.9 Hypotension, unspecified; V44.5XXA Car driver injured in collision with heavy transport vehicle or bus in traffic accident, initial encounter; Z86.718 Personal history of other venous thrombosis and embolism; Z85.038 Personal history of other malignant neoplasm of large intestine
CPT/HCPCS: 31500; 33207; 36415; 36416; 36430; 37191; 51702; 70450; 70486; 71045; 71260; 72125; 72141; 72146; 72170; 74018; 74177; 76001; 76942; 80048; 80053; 80202; 80306; 81003; 81015; 82533; 82550; 82553; 82805; 83036; 83690; 83735; 83880; 84100; 84484; 85014; 85018; 85025; 85060; 85610; 85730; 86850; 86900; 86901; 87040; 87070; 87077; 87086; 87186; 87205; 90471; 90715; 93005; 93010; 93306; 93312; 93970; 94002; 94003; 94640; 96361; 96365; 96366; 96368; 96375; 96376; 99292; C1713; C1751; C1768; C1769; C1785; C1898; C9132; G0390; G8978-GP-CN; G8979-GP-CM; G8987-GO-CN; G8988-GO-CK; J0360; J0461; J0690; J0696; J0744; J1580; J1650; J1720; J1815; J1940; J1953; J2001; J2060; J2250; J2370; J2543; J2704; J3010; J3370; J3475; J3480; J3490; J7050; J7070; J7620; L0639; P9016; P9045; Q0162; S0028